=== PATIENT | female | born 1955 | race Hispanic/Latino ===

== ENCOUNTER 2019-08-24 10:31 | Inpatient (IN) | payer BC, OTHER ==
[2019-08-24] VITALS (19 sets, daily range): BP systolic 109–154; BP diastolic 60–106
[~2019-08-24] VITALS: Ht 157.5 cm; Wt 75.7 kg
--- NOTE | 2019-08-24 11:11 | NUR ---
RECEIVED VERBAL ORDERS TO REPEAT EKG AT THIS TIME, DR. WHITESIDE CONSULTING WITH DR. GALLEGO REHABILITATION CASE COORDINATOR.
--- NOTE | 2019-08-24 11:12 | Diagnostic Imaging Report ---
History:Arm numbness, slurred speech Comparison studies:None Technique: Axial images were obtained from the skull base to the vertex. Coronal and sagittal images reconstructed from the axial data. Intravenous contrast: None Dose modulation, iterative reconstruction, and/or weight based adjustment of the mA/kV was utilized to reduce the radiation dose to as low as reasonably achievable. Findings: Scalp/skull: No abnormalities. Extra-axial spaces: Right retrocerebellar arachnoid cyst with mild mass effect over the adjacent parenchyma. No fluid collections. Brain sulci: Age-appropriate. Ventricles: Age-appropriate. No hydrocephalus. Parenchyma: Subcentimeter hypodensity in the right upper putamen without significant volume loss. Chronic lacunar infarct at the left putamen No other abnormal densities. No masses, hemorrhage, acute or chronic cortical vascular insults. Sellar/suprasellar region: No abnormalities. Craniocervical junction: Patent foramen magnum. No Chiari one malformation. Incidental findings: Atherosclerotic calcifications in the carotid siphons and vertebral arteries . Impression: Age indeterminant lacunar infarct at the right upper putamen. Chronic findings: 1. Chronic lacunar infarct at left putamen. The above finding was reported and acknowledged by Dr. Colbert at 11:08 AM 08/24/2019 Signed by: DR Chavez Garcia M.D. on 08/24/2019 11:09 AM
--- NOTE | 2019-08-24 11:19 | NUR ---
CODE STEMI ACTIVATED.
[2019-08-24] MEDS ORDERED: HEPARIN SOD (PORCINE) 1000 UNIT/ML 30ML ONE (11:25)
[2019-08-24] MEDS ORDERED: MIDAZOLAM HCL 2 MG/2 ML VIAL ONE (11:25)
--- NOTE | 2019-08-24 11:25 | NUR ---
PT BELOINGINGS INCLUDING PURSE AND CLOTHING SECURED BY SON AT BEDSIDE.
[2019-08-24] MEDS ORDERED: IOPAMIDOL 370 MG/ML 200 ML INFUS..BTL INJ ONE ×2 (11:26→12:39)
[2019-08-24] MEDS ORDERED: FENTANYL CITRATE/PF 100MCG/2 ML INJ ONE (11:26)
[2019-08-24] MEDS ORDERED: LIDOCAINE HCL 2% LOCAL 20 ML VIAL ONE (11:26)
[2019-08-24] MEDS ORDERED: SODIUM CHLORIDE 0.9% 1000ML 1,000 ML ONE (11:26)
[2019-08-24] MEDS ORDERED: HEPARIN SOD/SOD CHLORIDE 2,000 ML ONE (11:26)
--- NOTE | 2019-08-24 11:29 | Diagnostic Imaging Report ---
Chest, 1 view, 08/24/2019. History: Arm numbness, slurred speech. Comparison: None available. Findings: The cardiomediastinal silhouette and pulmonary vasculature are within normal limits for a portable exam. There is no focal consolidation or pleural effusion. Linear opacities are present at the left lung base. There are no acute osseous or soft tissue abnormalities. Impression: Left basilar atelectasis. Signed by: Dc Carias on 08/24/2019 11:25 AM
--- NOTE | 2019-08-24 11:32 | NUR ---
RECEIVED VERBAL ORDERS FROM DR. WHITESIDE TO GIVE HEPARIN 5,000 UNITS/1 ML TO GIVE BOLUS DOSE; ARRIVED AT BEDSIDE AND RECEVIED ORDERS FROM DR. WHITESIDE AFTER SPEAKING WITH DR. GALLEGO AT BEDSIDE AND WAS ORDERED NOT GO GIVE MEDICATION AT THIS TIME. MEDICATIONS TO BE GIVEN IN DECONTAMINATION WORKER.
[2019-08-24 11:34] LABS: BASOPHILS # (AUTO) 0.1 (0.0-0.1); BASOPHILS % 0.4 % (0.0-1.0); EOSINOPHILS % 0.2 % (0.0-6.0); HEMATOCRIT 37.6 % (34.2-44.1); HEMOGLOBIN 12.6 g/dL (12.0-16.0); LYMPHOCYTES # (AUTO) 2.5 (1.0-3.2); LYMPHOCYTES % 19.7 % (18.0-39.1); MEAN CORPUSCULAR HEMOGLOBIN 29.3 pg (28-32); MEAN CORPUSCULAR HGB CONC 33.5 g/dL (31-35); MEAN CORPUSCULAR VOLUME 87.4 fL (81-99); MONOCYTES # (AUTO) 1.1 (0.2-0.8); MONOCYTES % 8.6 % (4.4-11.3); NEUTROPHILS # (AUTO) 8.8 (2.1-6.9); NEUTROPHILS % 70.6 % (38.7-80.0); PLATELET COUNT 245 x10e3/uL (140-360); RED CELL DISTRIBUTION WIDTH 12.8 % (11.7-14.4)
[2019-08-24] MEDS ORDERED: HEPARIN SOD (PORCINE) 5,000 UNIT/ML VIAL ONE (11:35)
--- NOTE | 2019-08-24 11:35 | NUR ---
VERBAL REPORT GIVEN AT BEDSIDE TO SPEECH WRITER NURSE.
--- NOTE | 2019-08-24 11:38 | NUR ---
PT TAKEN VIA STRETCHER TO RADIOLOGY EQUIPMENT SERVICER AT THIS TIME.
[2019-08-24] MEDS ORDERED: VERAPAMIL HCL 2.5 MG/ML 2 ML VIAL ONE (11:42)
[2019-08-24 11:44] LABS: INR 0.91; PROTHROMBIN TIME 12.7 seconds (11.9-14.5)
[2019-08-24 11:45] LABS: PARTIAL THROMBOPLASTIN TIME 28.1 seconds (23.8-35.5)
[2019-08-24 11:54] LABS: ALANINE AMINOTRANSFERASE 36 IU/L (0-55); ALBUMIN 2.7 g/dL (3.5-5.0); ALBUMIN/GLOBULIN RATIO 0.6 (0.8-2.0); ALKALINE PHOSPHATASE 189 IU/L (40-150); ANION GAP 13.4 mmol/L (8-16); BLOOD UREA NITROGEN 14 mg/dL (7-26); BUN/CREATININE RATIO 16 (6-25); CARBON DIOXIDE 25 mmol/L (22-29); CHLORIDE 98 mmol/L (98-107); CREATINE KINASE 114 IU/L (29-168); CREATININE, SERUM 0.89 mg/dL (0.57-1.11); EST GLOMERULAR FILTRATION RATE > 60 ML/MIN (60-); POTASSIUM 3.4 mmol/L (3.5-5.1); SODIUM 133 mmol/L (136-145)
[2019-08-24] MEDS ORDERED: HEPARIN 25,000 UNIT 5,000 UNIT in DEXTROSE 5% 250ML 250 ML IV ONE (12:00)
--- NOTE | 2019-08-24 12:04 | Diagnostic Imaging Report ---
Chest, 1 view, 08/24/2019. History: Arm numbness. Comparison: 08/24/2019. Findings: The cardiomediastinal silhouette and pulmonary vasculature are within normal limits for a portable exam. There is no focal consolidation or pleural effusion. Linear opacities are present in the left lung base. There are no acute osseous or soft tissue abnormalities. Impression: Left basilar atelectasis. Signed by: Dc Carias on 08/24/2019 12:01 PM
[2019-08-24 12:19] LABS: GLUCOSE 403 mg/dL (74-118)
[2019-08-24] MEDS ORDERED: CLOPIDOGREL BISULFATE 75 MG TAB ONE (12:43)
[2019-08-24] MEDS ORDERED: ASPIRIN 325 MG TAB ONE (12:43)
[2019-08-24] MEDS ORDERED: MORPHINE SULFATE 2 MG/ML SYR 1ML IV PRN (12:45)
[2019-08-24] MEDS: METOPROLOL TARTRATE 25 MG TAB PO SCH (12:45)
[2019-08-24] MEDS ORDERED: SODIUM CHLORIDE FLUSH 10 ML SYR INJ PRN (12:45)
[2019-08-24] MEDS ORDERED: TICAGRELOR 90 MG TABLET ONE (12:46)
[2019-08-24] MEDS ORDERED: EPTIFIBATIDE 75mg 100ML 100 ML IV SCH (13:00)
[2019-08-24] MEDS ORDERED: EPTIFIBATIDE 0 ML ONE (13:11)
[2019-08-24] MEDS ORDERED: EPTIFIBATIDE 75mg 100ML 100 ML ONE (13:11)
[2019-08-24] MEDS ORDERED: ONDANSETRON HCL INJ 2MG/ML 2ML 2 MG/ML VIAL ONE (13:20)
--- NOTE | 2019-08-24 13:33 | NUR ---
5854 Bedside report received from DARREN Lindsey. Alert oriented and appropriate, PERRLA, respirations even and unlabored to room air. Pulses x4 extremities. Pedal pulses PT/DP 4 Doppler and marked. Cap fill brisk < 3 sec. Awaiting icu bed disposition.Was medicated for nausea zofran 4mg. ivp with partial resolution. Skin warm and dry integrity appears Rt ac IV 18g Integrelin drip at 11.2(18hrs) and Ns infusing 100cchr both on pumps. presents healthy w/o s/s of infiltration or complaint. Abdomen soft and supple. pt offered toileting, denies need to urinate or defecate. No personal affects with patient. Family Adolfo cell [phone]. Pt and family verbalizes understanding of POC. Currently w/o complaint of pain or need. Echo ordered. mattie/darren
--- NOTE | 2019-08-24 15:00 | NUR ---
1500 Bed disposition 195 ICU by House vargas Leos RN.ds/rn
--- NOTE | 2019-08-24 15:00 | NUR ---
1500ADIAL Compression removal: Initial Cuff volume 11 cc -2cc Removed No hematoma/bleeding noted with normal neurovascular function. -2cc Removed No hematoma/ bleeding noted with normal neurovascular function. Air removal completed. Stasis achieved sterile 2x2,Tegaderm, Coban dressing No hematoma, bleeding noted with normal neurovascular function. Wrist splint in place. Pt instructed on POC. Ds/Rn
--- NOTE | 2019-08-24 16:30 | NUR ---
1630pm Phoned report to [facility]. Tr band site stable with Coban and arm splint No gross issues pain pallor pressure or dysrhythmia. HR 100. Normal neurovascular function. Interillin drip infusion at 2mcgm/kg min till 7am on 08/25/19 site looks healthy to rt 18g ac.on pump. Light sandwich given with sprite and echo ordered.Pt ahd LAD fix Dr Tejeda and being transfer to ICU #[id number] with RN escort and zoll monitor. mattie/bronson
[2019-08-24] MEDS ORDERED: HYDROCODONE/APAP 5MG-325MG TAB PO PRN (18:15)
[2019-08-24] MEDS ORDERED: MORPHINE SULFATE INJ 4 MG/ML INJ 1ML IV PRN (18:15)
[2019-08-24 19:36] LABS: CREATINE KINASE MB 13.3 ng/mL (0-5.0)
[2019-08-24] MEDS: ATORVASTATIN 40 MG TAB PO SCH (20:21)
[2019-08-24] MEDS: TICAGRELOR 90 MG TABLET PO SCH (20:21)
[2019-08-24] MEDS ORDERED: DEXTROSE 50% SYRINGE 50 ML IV PRN (21:45)
[2019-08-24] MEDS ORDERED: INSULIN LISPRO 100 UNIT/1 ML 3ML VIAL SQ ONE ×2 (21:45→21:53)
[2019-08-25] VITALS (25 sets, daily range): BP systolic 101–131; BP diastolic 41–95
[2019-08-25] MEDS: METOPROLOL TARTRATE 25 MG TAB PO SCH (00:54)
[2019-08-25] MEDS ORDERED: METOPROLOL TARTRATE 25 MG TAB ONE (00:57)
[2019-08-25 05:45] LABS: BASOPHILS % 0.2 % (0.0-1.0); EOSINOPHILS % 0.1 % (0.0-6.0); HEMOGLOBIN 10.7 g/dL (12.0-16.0); LYMPHOCYTES % 8.2 % (18.0-39.1); MEAN CORPUSCULAR HEMOGLOBIN 29.5 pg (28-32); MEAN CORPUSCULAR HGB CONC 33.4 g/dL (31-35); MEAN CORPUSCULAR VOLUME 88.2 fL (81-99); MONOCYTES # (AUTO) 0.8 (0.2-0.8); MONOCYTES % 6.3 % (4.4-11.3); NEUTROPHILS # (AUTO) 10.5 (2.1-6.9); NEUTROPHILS % 84.6 % (38.7-80.0); PLATELET COUNT 228 x10e3/uL (140-360); RED BLOOD COUNT 3.63 x10e6/uL (3.6-5.1); RED CELL DISTRIBUTION WIDTH 12.8 % (11.7-14.4)
[2019-08-25 05:47] LABS: ANION GAP 13.4 mmol/L (8-16); BLOOD UREA NITROGEN 16 mg/dL (7-26); BUN/CREATININE RATIO 22 (6-25); CALCIUM 8.7 mg/dL (8.4-10.2); CARBON DIOXIDE 21 mmol/L (22-29); CHLORIDE 101 mmol/L (98-107); CHOLESTEROL 169 MD/DL (0-199); CREATININE, SERUM 0.72 mg/dL (0.57-1.11); EST GLOMERULAR FILTRATION RATE > 60 ML/MIN (60-); GLUCOSE 294 mg/dL (74-118); HDL CHOLESTEROL 34 MG/DL (40-60); LDL CHOLESTEROL 115 MG/DL (60-130); POTASSIUM 3.4 mmol/L (3.5-5.1); SODIUM 132 mmol/L (136-145); TRIGLYCERIDES 100 MG/DL (0-149)
[2019-08-25 06:16] LABS: CREATINE KINASE MB 65.2 ng/mL (0-5.0)
[2019-08-25] MEDS: INSULIN REGULAR, HUMAN 100 UNIT/1 ML 3ML VIAL SQ SCH ×4 (07:30→21:00)
[2019-08-25] MEDS ORDERED: LACTULOSE SYRUP 20 GM/30 ML UDC PO PRN (08:30)
[2019-08-25] MEDS: TICAGRELOR 90 MG TABLET PO SCH ×2 (09:00→17:00)
[2019-08-25] MEDS: ASPIRIN 81 MG CHEW TAB PO SCH (09:00)
[2019-08-25] MEDS ORDERED: ASPIRIN 325 MG TAB EC PO SCH (09:00)
--- NOTE | 2019-08-25 09:33 | NUR ---
WOUNDCARE CONSULT FOR 64 YO FEMALE NURYS [place] ON CONSERVATIVE PUP SKIN ASSESSMENT REVEALS HEALING SMALL SCAB AREAS TO BILATERAL CERON AREAS HEALING WELL AND MEASURE .5CM X .5CM COVERED WITH ALLEVYN FOAM FOR CONTACT PROTECTION STATES SHE BRUISES AND RECEIVE ABRASIONS EASILY R/T THIN FRAIL SKIN NURSING TO RECONSULT WOUNDCARE FOR ANY FUTURE NEEDS Addendum: 08/25/19 at 0941 by Parker Welch RN Amended: Links added.
[2019-08-25] MEDS ORDERED: HYDROCODONE/APAP 5MG-325MG TAB PO PRN (10:15)
[2019-08-25] MEDS ORDERED: ACETAMINOPHEN 325 MG TAB PO PRN (10:15)
[2019-08-25] MEDS: VALSARTAN/SACUBITRIL 24MG/26MG 1 EA TAB PO SCH ×2 (11:04→17:00)
[2019-08-25] MEDS ORDERED: PERFLUTREN LIPID MICROSPHERES 2 ML VIAL IV NR (11:45)
--- NOTE | 2019-08-25 14:04 | NUR ---
Nutrition Intervention Note RD Recommendation(s) for Physician: -Continue current diet per MD. -Recommend Glucerna BID. Plan of Care: RD following, monitoring for tolerance and adequacy. Glucerna BID. Educational handout provided. Nutrition reason for involvement: RN Consult-DM education. MST-2 RD Assessment 08/25: 64 YOF admitted for CVA with PMH listed below. Pt was seen with family at bedside in the ICU. Pt reported that her appetite has been poor for the past couple of days but prior to that her appetite and weight has been stable. Pt stated she had a little nausea, no BM yet (she is on lactulose) but denied chewing or swallowing issues as well as any food allergies. Recommend Glucerna supplement to provide her with additional calories and protein. Pt was very fatigued and not appropriate to educate at this time, have handout to family members to review and to ask RD and further questions regarding the diet. They had no more questions or concerns. Wound care and speech have been consulted as well.Will continue to monitor. Principal Problems/Diagnoses: CVA PMH: DM GI: Abd: flat; soft Skin: wound on calf Labs: 08/25: Na 132, K 3.4, Co2 21, Gluc 294, POC GM 358 Meds: insulin, valsartan, lactulose, zofran Ht:62 in Wt:148 lbs BMI:27.1 kg/m^2 IBW:100 lbs Malnutrition Evaluation 08/25 The patient does not meet criteria for a specified degree of malnutrition at this time. Will re-evaluate at follow-up as appropriate. Nutrition Prescription (Diet Order):cardiac, ADA Estimated Nutritional Needs: Calories: 5095-2148(18-22kcal/day ) Weight used : CBW: 67.2 kg Protein : 67-100(1-1.5 gram/protein/day) Weight used: CBW: 67.2 kg Diet Adequacy: Not meeting calorie needs, Not meeting protein needs Diet Education Needs Assessment: Diet education indicated, but patient not appropriate for education at this time- educated family Nutrition Care Level: mod Nutrition Diagnosis: inadequate energy intake related to medical condition as evidenced by pt reports of poor intake over the last 2 days and need for ONS. Goal: Patient will meet 75-100% of estimated needs by follow up Progress: N/A Interventions: - carb, cholesterol, mineral (sodium), cholesterol modified diet, Commercial beverage Collaboration with other providers Monitoring/Evaluation: -Total energy intake, Total protein intake, supplement, Level of knowledge Signed: Malinda Perez RD, LD Learner(s): family Barriers: pt was too fatigued at the time and inappropriate to educated. Cultural/Language Modifications: none Readiness: acceptance Method: handout Topics: DM diet Understanding/Compliance: family verbalized understanding, anticipate good compliance
--- NOTE | 2019-08-25 14:48 | NUR ---
ST Note: Order for SLE and BSE received. Discussed case with DARREN Liz. Pt in the restroom. Will return later time permitting. If unable to complete eval today, will complete eval tomorrow 08/26/19.
--- NOTE | 2019-08-25 17:33 | History and Physical ---
CHIEF COMPLAINT: Slurred speech, dizziness. HISTORY OF PRESENT ILLNESS: This is a 64-year-old female with no known past medical history, presents to the emergency room yesterday while she was at work, complaining of slurred speech, and dizziness, and not feeling well. On arrival to the emergency room, she was found to have an abnormal EKG, found to be STEMI, and was taken urgently to the stores laborer. The patient was found to have lesions in the LAD and had status post three stents placed by Cardiology in the LAD, having some underlying slurred speech, but no underlying gait abnormality. During my evaluation, she denies any weakness throughout her body, but seems to have some broken speech during my examination. No diplopia. No blurry vision. No double vision reported. No facial droop seen. The patient was seen and evaluated at bedside in the ICU. She is currently doing much better. She was on Integrilin drip last night, completed her course, and she is doing much better. Plan of care was discussed with the patient with the nurse present. The patient denies any chest pain on arrival nor did she have any chest pain of recent. Her only main complaint was dizziness and slurred speech. REVIEW OF SYSTEMS: Pertinent positives: Dizziness, slurred speech. Pertinent negative: Denies any chest pain, palpitations, nausea, vomiting, diarrhea, dysuria, hematuria, frequency, urgency, abdominal pain, headaches, shortness of breath, cough, congestion, fever, or any other complaints. The rest of 14-point review of systems have been reviewed with the patient and are negative. ALLERGIES: NO KNOWN DRUG ALLERGIES. HOME MEDICATIONS: None. PAST MEDICAL HISTORY: None. PAST SURGICAL HISTORY: Recent left heart catheterization performed 08/24/2019. FAMILY HISTORY: Hypertension and diabetes. SOCIAL HISTORY: No drugs. No alcohol. Does not smoke. Good social support. She has children. 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 PHYSICAL EXAMINATION: VITAL SIGNS: Temperature is 97.9, pulse 87, respiratory rate 15, blood pressure 124/68, pulse ox 98% on room air. GENERAL: Not in acute distress. Alert and oriented x3. Cooperative on examination. HEENT: Head; normocephalic, atraumatic. Eyes; pupils are equal, round, and reactive to light bilaterally. Extraocular movements intact bilaterally. Throat; no evidence of erythema or exudates in the posterior pharynx. Has poor dentition. NECK: Supple. Good range of motion. PULMONARY: Clear to auscultation bilaterally. No wheezing, no rales, no rhonchi, no crackles appreciated. CARDIOVASCULAR: Positive S1 and S2. No murmurs, rubs, or gallops appreciated. ABDOMEN: Soft, nondistended, and nontender to palpation. Bowel sounds present. MUSCULOSKELETAL: Strength seems to be 5/5 throughout. NEUROLOGIC: Does have some slurred speech on examination with word finding, but I did not see any neurological deficits on exam. She was able to move all the extremities well, but no issues. I did not see any facial drooping. SKIN: Intact. Warm to touch. Good cap refill. PSYCHIATRIC: Normal affect and mood. EXTREMITIES: No edema. Good range of motion throughout. LAB FINDINGS: Show white count 12.4, hemoglobin 10.7, hematocrit 32, and platelets of 228. Coagulation, PT 12, INR 0.9, APTT 28. Chemistry, sodium 132, potassium 3.4, chloride 101, bicarb 21, anion gap of 13, BUN is 16, creatinine is 0.72, glucose is 294. Hemoglobin A1c is 13.3, calcium 8.7, total bilirubin is 0.4, AST 25, ALT 36. Troponins went up as high as 63, it was 3.9, 8.3, then 63, albumin was 2.7, LDL was 115, TSH is 8.6. MICROBIOLOGY: None. IMAGING STUDIES: Chest x-ray, left basilar atelectasis. CT of the brain, chronic lacunar infarct at left putamen and also age-indeterminate lacunar infarct at the right upper putamen. IMPRESSION: 1. ST-elevation myocardial infarction, status post left heart catheterization with left anterior descending percutaneous Coronary Intervention. 2. Concerns for acute cerebrovascular accident. 3. Type 2 diabetes. 4. Hyperlipidemia. 5. Medical noncompliance. PLAN: At this time, the patient from a cardiac standpoint was given Integrilin throughout the night, also given aspirin and loading dose of Plavix. She is currently on Brilinta 90 mg p.o. b.i.d., beta blockers, statin as well as aspirin and will need to be on an ETTA inhibitor as well. She is currently doing well from a cardiac standpoint. From a neurological standpoint, she is on anti-platelet therapy statins. There is a carotid ultrasound of the brain that has been ordered including a carotid ultrasound and a 2D echo. We will get PT and OT evaluation and a neurological consult. In relation to her diabetes, this is likely a new onset, A1c is 13.3, we will start her on long-acting Lantus 10 units at bedtime and premeal insulin. Continue with oral statin. Work with PT and OT. She will have SCDs for DVT prophylaxis. She is already on significant amount of anti-platelet therapy. I discussed the plan of care with the patient at bedside including the patient's family and the nursing staff present. They verbalized understanding and agreed with plan of care. The patient is in the ICU. Critical care time more than 40 minutes. MD SUKHJINDER Luna/ELVIRA /[id number]
--- NOTE | 2019-08-25 17:38 | Consultation ---
DATE OF CONSULTATION: 08/25/2019 Cardiology Consultation. REASON FOR CONSULTATION: ST-elevation myocardial infarction. HISTORY OF PRESENT ILLNESS: This is a 64-year-old woman who has a history of borderline diabetes, hypertension, hyperlipidemia, who presented to the emergency department with episodes of dysarthria, inability to form words, and slight confusion. She does report developing shortness of breath approximately 48 hours prior to presentation. She denies any chest pain, chest pressure, or typical anginal symptoms. Upon arrival to our emergency department, she had a head CT, which showed a chronic lacunar infarct at the left putamen with no hemorrhage. Electrocardiogram showed normal sinus rhythm with anterior septal ST elevations with Q-waves noted in the inferior and anteroseptal leads. She was taken to the cardiac catheterization laboratory and her LAD was noted to be occluded with severe disease in her diagonal branch with diffuse distal disease otherwise. She underwent percutaneous coronary intervention of the left anterior descending coronary artery and was admitted to the intensive care unit. REVIEW OF SYSTEMS: A 12-point review of system was conducted, is negative except as stated above in the HPI. PAST MEDICAL HISTORY: As stated above in the HPI. PAST SURGICAL HISTORY: Percutaneous coronary intervention. PAST FAMILY HISTORY: No premature coronary artery disease and cardiac . SOCIAL HISTORY: No illicit drug, alcohol, or tobacco use. ALLERGIES: NO KNOWN DRUG ALLERGIES. MEDICATIONS: See medications reconciliation form. PHYSICAL EXAMINATION: VITAL SIGNS: Temperature is 97.9, heart rate is 83, respirations are 16, blood pressure is 121/63, oxygen saturation 98% on room air. GENERAL: She is well appearing, well built, no apparent distress. Alert orient x3. HEAD: Normocephalic, atraumatic. EYES: Extraocular muscles are intact. Conjunctivae clear. NECK: No JVD. No bruits. CARDIOVASCULAR: She has regular rate and rhythm. No murmurs. LUNGS: Clear to auscultation. ABDOMEN: Soft, nontender, nondistended. EXTREMITIES: No clubbing, cyanosis, edema. VASCULAR: 2+ pulses. SKIN: Warm, dry, and intact. NEUROLOGIC: Dysarthria. No focal deficits otherwise. LABORATORY DATA: Reviewed, hemoglobin 10.7, creatinine 0.72. CK-MB is 65. Troponin I is 63. Creatine kinase is 809, LDL is 115, TSH is 8.6, glucose is 299. Hemoglobin A1c is 13.3. Sodium is 132 and potassium 3.4. Echocardiogram showed left ventricular ejection fraction of 25% to 30%. IMPRESSION: 1. ST-elevation myocardial infarction. 2. Coronary artery disease, status post percutaneous coronary intervention. 3. Acute systolic congestive heart failure. 4. Cerebral vascular accident. 5. Hypertension. 6. Hyperlipidemia. 7. Poorly-controlled diabetes mellitus. RECOMMENDATIONS: We will start optimal medical therapy for her heart failure. I would like to check a 2D echocardiogram with defiantly to rule out LV thrombus. Continue dual antiplatelet therapy with aspirin and Brilinta. She is on high-dose atorvastatin. Diabetes management per primary team. We will check an MRI of the brain and carotid artery Doppler ultrasounds. Jordan Tejeda DO BM/MODL /[id number]
[2019-08-25] MEDS: INSULIN GLARGINE 100 UNITS/ML VIAL SQ SCH (21:25)
[2019-08-25] MEDS: ATORVASTATIN 40 MG TAB PO SCH (21:26)
[2019-08-26] VITALS (24 sets, daily range): BP systolic 72–125; BP diastolic 37–73
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
[2019-08-26 05:21] LABS: BASOPHILS % 0.2 % (0.0-1.0); EOSINOPHILS % 0.1 % (0.0-6.0); HEMATOCRIT 33.1 % (34.2-44.1); LYMPHOCYTES # (AUTO) 1.6 (1.0-3.2); LYMPHOCYTES % 9.5 % (18.0-39.1); MEAN CORPUSCULAR HEMOGLOBIN 29.4 pg (28-32); MEAN CORPUSCULAR HGB CONC 33.2 g/dL (31-35); MEAN CORPUSCULAR VOLUME 88.5 fL (81-99); MONOCYTES # (AUTO) 1.5 (0.2-0.8); MONOCYTES % 8.6 % (4.4-11.3); NEUTROPHILS # (AUTO) 13.8 (2.1-6.9); PLATELET COUNT 220 x10e3/uL (140-360); RED BLOOD COUNT 3.74 x10e6/uL (3.6-5.1); RED CELL DISTRIBUTION WIDTH 13.1 % (11.7-14.4)
[2019-08-26 05:48] LABS: ANION GAP 13.4 mmol/L (8-16); BLOOD UREA NITROGEN 21 mg/dL (7-26); BUN/CREATININE RATIO 30 (6-25); CALCIUM 8.5 mg/dL (8.4-10.2); CARBON DIOXIDE 22 mmol/L (22-29); CHLORIDE 103 mmol/L (98-107); CREATININE, SERUM 0.71 mg/dL (0.57-1.11); EST GLOMERULAR FILTRATION RATE > 60 ML/MIN (60-); GLUCOSE 166 mg/dL (74-118); POTASSIUM 3.4 mmol/L (3.5-5.1); SODIUM 135 mmol/L (136-145)
[2019-08-26] MEDS: INSULIN REGULAR, HUMAN 100 UNIT/1 ML 3ML VIAL SQ SCH ×4 (07:30→20:30)
[2019-08-26] MEDS: FAMOTIDINE 20 MG TAB PO SCH ×2 (07:30→16:30)
[2019-08-26] MEDS ORDERED: LOSARTAN POTASSIUM 25 MG TAB PO SCH (09:00)
[2019-08-26] MEDS: TICAGRELOR 90 MG TABLET PO SCH ×2 (09:03→17:00)
[2019-08-26] MEDS: VALSARTAN/SACUBITRIL 24MG/26MG 1 EA TAB PO SCH ×2 (09:03→17:00)
[2019-08-26] MEDS: ASPIRIN 81 MG CHEW TAB PO SCH (09:03)
--- NOTE | 2019-08-26 11:38 | Diagnostic Imaging Report ---
ADDENDUM #1 Impression: CTA head and neck: No acute abnormality or hemodynamically significant stenosis of the neck or intracranial circulation. 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 Other atherosclerotic changes as described above. Partially visualized right more than left pleural effusions. Signed by: DR Chavez Garcia M.D. on 08/26/2019 12:57 PM ORIGINAL REPORT History: Slurred speech Comparison studies: CT of the head 08/24/2019 Technique: Axial images without IV contrast Axial images were obtained from the thoracic inlet to the vertex with any contrast. 3-D reconstructions and maximum intensity projection reformats were performed. Coronal and sagittal images reconstructed from the axial data. Intravenous contrast: 100 cc of Omnipaque 300. Dose modulation, iterative reconstruction, and/or weight based adjustment of the mA/kV was utilized to reduce the radiation dose to as low as reasonably achievable. Findings: Scalp/skull: No abnormalities. No fractures, blastic or lytic lesions. Extra-axial spaces: Right retrocerebellar arachnoid cyst with mild mass effect over the adjacent parenchyma. No fluid collections. Brain sulci: Appropriate for age. Ventricles: Normal in size and configuration. No hydrocephalus. Parenchyma: Cortical based hypodensity. At the left posterior insula, external capsule and inferior parietal lobule, new since previous examination. Few stable hypodensities of the supratentorial white matter, most commonly seen with mild chronic microvascular ischemic changes. No masses or hemorrhage.. Sellar/suprasellar region: No abnormalities Craniocervical junction: Patent foramen magnum. No Chiari one malformation. CTA of the head and neck: Percentage of stenosis will be based on the NASCET criteria. Aortic arch and major vessels: Patent. No abnormalities. Common carotid arteries: Patent. No abnormalities. Right internal carotid artery: Patent. Calcified and noncalcified atherosclerotic changes at the right carotid bulb results in less than 30% stenosis. Atherosclerotic calcifications of the carotid siphons with less than 20% stenosis. Left internal carotid artery: Patent. Nonstenotic atherosclerotic changes of the left carotid bulb. Atherosclerotic calcifications of the carotid siphons with less than 20% stenosis. Patent bilateral ACAs and MCAs. Right vertebral artery: Patent. No abnormalities. Left vertebral artery: Patent and dominant. No abnormalities. 40-50% stenosis of the mid basilar artery secondary to noncalcified plaque. Patent bilateral account development specialist without hemodynamically significant stenosis. Patent anterior communicating artery, the posterior communicating arteries are not well visualized. Moderate degenerative foraminal narrowing at C3-4 on the right, C4-5 on the left. No high-grade canal stenosis. IMPRESSION: CT head: Acute infarct at the left MCA distribution involving the left posterior insula and inferior parietal lobule (less than 30 cc). No intracranial hemorrhage. No other changes compared to previous CT head. CTA head and neck: No acute abnormality or hemodynamically significant stenosis of the neck or intracranial circulation. 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 Other atherosclerotic changes as described above. The above finding was reported and acknowledged by RN. Jud Ogden at 10:35 AM 08/26/2019. Signed by: DR Chavez Garcia M.D. on 08/26/2019 11:34 AM
[2019-08-26] MEDS: METOPROLOL SUCCINATE 25 MG TAB XL PO SCH (11:51)
[2019-08-26] MEDS ORDERED: SODIUM CHLORIDE 0.9% 100 ML 100 ML ONE (12:12)
[2019-08-26] MEDS ORDERED: IOPAMIDOL 370 MG/ML 200 ML INFUS..BTL INJ ONE (12:12)
[2019-08-26] MEDS: SODIUM CHLORIDE 0.9% 1000ML 1,000 ML IV SCH (14:31)
[2019-08-26] MEDS ORDERED: POTASSIUM CHLORIDE 20 MEQ TAB CR PO NR (15:00)
--- NOTE | 2019-08-26 15:52 | Progress Note ---
DATE: 08/26/2019 Medicine Progress Note SUBJECTIVE: The patient reports feeling much better today. Her speech is improved according to the patient. No overnight events. Neurology and Cardiology evaluated the patient. OBJECTIVE: VITAL SIGNS: Temperature is 98.7, pulse is 101, respiratory rate is 22, blood pressure 131/70, and pulse ox 98% on room air. GENERAL: Not in acute distress. Alert and oriented x3. Cooperative on examination. HEENT: Head; normocephalic, atraumatic. Eyes; pupils are equal, round, and reactive to light bilaterally. Extraocular movements intact bilaterally. Throat; no evidence of erythema or exudates in the posterior pharynx. Has poor dentition. NECK: Supple. Good range of motion. PULMONARY: Clear to auscultation bilaterally. No wheezing, no rales, no rhonchi, no crackles appreciated. CARDIOVASCULAR: Positive S1 and S2. No murmurs, rubs, or gallops appreciated. ABDOMEN: Soft, nondistended, and nontender to palpation. Bowel sounds present. MUSCULOSKELETAL: Deferred to Neurology. NEUROLOGIC: Deferred to Neurology. SKIN: Intact. Warm to touch. Good cap refill. PSYCHIATRIC: Normal affect and mood. EXTREMITIES: No edema. Good range of motion throughout. LABORATORY FINDINGS: Show white count was 17, hemoglobin is 11, hematocrit is 33, platelets of 220. Coagulation reviewed and stable. Chemistries; sodium 135, potassium 3.4, chloride 103, bicarb 22, anion gap of 13, BUN 21, creatinine 0.71, glucose is 166, calcium is 8.5. Total bilirubin is 0.4, AST is 25, and ALT 36. Troponins noted. LDL 115. IMAGING: Carotid Doppler is pending. CTA of the head and neck, no acute abnormality, hemodynamically significant stenosis of the neck or intracranial circulation. 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 Otherwise, significant changes as described above. IMPRESSION: 1. ST-elevation myocardial infarction, status post left heart catheterization with left anterior descending percutaneous coronary intervention. 2. Acute left middle cerebral artery infarct. 3. Type 2 diabetes. 4. Hyperlipidemia. 5. Medical noncompliance. PLAN: At this time, she will continue with anti-platelet therapy, beta-danae, statin, and ETTA inhibitor. She is having some decreased urine output, which she did receive contrast. We will go ahead and put on NS at 50 mL an hour and going to monitor her very closely. Continue with cardioprotective medications and Cardiology is following. From a neurologic standpoint, her imaging studies was consistent with a left MCA infarct. She is on anti-platelet therapy and statins already. Cannot perform MRI of the brain due to recent cardiac stent placement and which she will need to wait at least a minimum of 6 weeks before imaging studies. At this time, continue work with PT and OT, which she is working very well with. She will need outpatient speech therapy. She is tolerating diet well. She can be transferred from the ICU to the Medical floor. I spent more than 35 minutes of critical care time on this case. I reviewed the plan of care with the patient, the patient's , the nurse taking care of the patient at bedside. We will replace potassium as well. MD SUKHJINDER Luna/ELVIRA /[id number]
[2019-08-26] MEDS: ATORVASTATIN 40 MG TAB PO SCH (20:32)
[2019-08-26] MEDS: INSULIN GLARGINE 100 UNITS/ML VIAL SQ SCH (20:33)
--- NOTE | 2019-08-26 22:53 | Progress Note ---
DATE: 08/26/2019 Cardiology Progress Note SUBJECTIVE: No major events overnight. No chest pain. Some mild shortness of breath. OBJECTIVE: VITAL SIGNS: Temperature afebrile, pulse 91, respiratory rate 19, blood pressure 100/51, and saturating 100% on 2 L nasal cannula. GENERAL: Middle-aged female, in no acute distress. CARDIOVASCULAR: Regular rate and rhythm. No murmurs, rubs, or gallops. LUNGS: Clear to auscultation bilaterally. ABDOMEN: Soft, nontender, and nondistended. NEURO AND PSYCH: Alert and oriented to person, place, and time. Normal affect. INPATIENT MEDICATIONS: Reviewed. LABORATORY DATA: Reviewed. TELEMETRY DATA: Reviewed. Shows normal sinus rhythm. ASSESSMENT AND PLAN: 1. Anterior ST-elevation myocardial infarction, status post PCI. 2. Acute systolic congestive heart failure. 3. Cerebrovascular accident. 4. Hypertension. 5. Hyperlipidemia. 6. Poorly controlled diabetes. RECOMMENDATIONS: Continue aspirin and Brilinta. Continue high-intensity statin. The patient started on Entresto. We will start losartan. Continue metoprolol succinate. Echocardiogram yesterday with echo contrast did not show any LV thrombus. We will defer neurological workup to Neurology. Thank you for this consult. We will continue to follow. MD AGNES Childs/ELVIRA /[id number]
[2019-08-27] VITALS (21 sets, daily range): BP systolic 88–123; BP diastolic 48–83
[2019-08-27 06:17] LABS: BASOPHILS % 0.3 % (0.0-1.0); EOSINOPHILS # (AUTO) 0.1 (0.0-0.4); EOSINOPHILS % 0.7 % (0.0-6.0); HEMATOCRIT 33.8 % (34.2-44.1); HEMOGLOBIN 10.9 g/dL (12.0-16.0); LYMPHOCYTES # (AUTO) 1.8 (1.0-3.2); LYMPHOCYTES % 15.2 % (18.0-39.1); MEAN CORPUSCULAR HEMOGLOBIN 29.4 pg (28-32); MEAN CORPUSCULAR HGB CONC 32.2 g/dL (31-35); MEAN CORPUSCULAR VOLUME 91.1 fL (81-99); MONOCYTES # (AUTO) 1.3 (0.2-0.8); NEUTROPHILS # (AUTO) 8.7 (2.1-6.9); NEUTROPHILS % 72.2 % (38.7-80.0); PLATELET COUNT 234 x10e3/uL (140-360); RED BLOOD COUNT 3.71 x10e6/uL (3.6-5.1); RED CELL DISTRIBUTION WIDTH 13.2 % (11.7-14.4)
[2019-08-27 06:35] LABS: ANION GAP 14.1 mmol/L (8-16); BLOOD UREA NITROGEN 23 mg/dL (7-26); BUN/CREATININE RATIO 33 (6-25); CALCIUM 8.2 mg/dL (8.4-10.2); CARBON DIOXIDE 19 mmol/L (22-29); CHLORIDE 102 mmol/L (98-107); EST GLOMERULAR FILTRATION RATE > 60 ML/MIN (60-); GLUCOSE 93 mg/dL (74-118); POTASSIUM 3.1 mmol/L (3.5-5.1); SODIUM 132 mmol/L (136-145)
[2019-08-27] MEDS: INSULIN REGULAR, HUMAN 100 UNIT/1 ML 3ML VIAL SQ SCH ×4 (07:30→20:21)
[2019-08-27] MEDS: FAMOTIDINE 20 MG TAB PO SCH ×2 (07:30→16:30)
[2019-08-27] MEDS ORDERED: ONDANSETRON HCL INJ 2MG/ML 2ML 2 MG/ML VIAL IV PRN (08:15)
[2019-08-27] MEDS: ONDANSETRON HCL INJ 2MG/ML 2ML 2 MG/ML VIAL IV PRN (08:24)
[2019-08-27] MEDS: METOPROLOL SUCCINATE 25 MG TAB XL PO SCH (09:00)
[2019-08-27] MEDS: SENNA-S TABLET PO SCH (09:00)
[2019-08-27] MEDS: VALSARTAN/SACUBITRIL 24MG/26MG 1 EA TAB PO SCH ×2 (09:00→17:00)
[2019-08-27] MEDS: TICAGRELOR 90 MG TABLET PO SCH ×2 (09:00→17:00)
[2019-08-27] MEDS: ASPIRIN 81 MG CHEW TAB PO SCH (09:00)
[2019-08-27] MEDS: SODIUM CHLORIDE 0.9% 1000ML 1,000 ML IV SCH (10:30)
[2019-08-27] MEDS ORDERED: POTASSIUM CHLORIDE 20 MEQ TAB CR PO NR ×2 (12:45→14:15)
--- NOTE | 2019-08-27 15:18 | Progress Note ---
DATE: 08/27/2019 Medicine Progress Note SUBJECTIVE: The patient had some urinary retention earlier this morning, but there was no straight cath performed, then suddenly the patient had an increased amount of urine output on a PureWick. I spoke with the nurse and she says she will do a bladder scan later today and see if she has any residual. She may end up doing a straight cath if she does not void much better, but currently she is doing much better. PHYSICAL EXAMINATION: VITAL SIGNS: Temperature is 98.7, pulse is 92, respiratory rate is 22, pressure 119/60, and pulse ox 100% on 2 L nasal cannula. GENERAL: Not in acute distress. Alert and oriented x3. Cooperative on examination. HEENT: Head; normocephalic, atraumatic. Eyes; pupils are equal, round, and reactive to light bilaterally. Extraocular movements intact bilaterally. Throat; no evidence of erythema or exudates in the posterior pharynx. Has poor dentition. NECK: Supple. Good range of motion. PULMONARY: Clear to auscultation bilaterally. No wheezing, no rales, no rhonchi, no crackles appreciated. CARDIOVASCULAR: Positive S1 and S2. No murmurs, rubs, or gallops appreciated. ABDOMEN: Soft, nondistended, and nontender to palpation. Bowel sounds present. MUSCULOSKELETAL: Strength is 5/5 throughout. No evidence of any muscle deficits on examination. No weakness appreciated. NEUROLOGIC: Has slight slurred speech, but much improved. SKIN: Intact. Warm to touch. Good cap refill. PSYCHIATRIC: Normal affect and mood. EXTREMITIES: No edema. Good range of motion throughout. LABORATORY FINDINGS: Show white count was 12.1, hemoglobin 10.9, hematocrit 34, platelets of 234. Coagulation; PT 12, INR 0.91, PTT 28. Chemistry; sodium 132, potassium 3.1 replaced, chloride 102, bicarb 19, anion gap of 14, BUN is 22, creatinine is 0.7, glucose is 93, calcium is 8.2. IMAGING STUDIES: Nothing new. IMPRESSION: 1. ST-elevation myocardial infarction, status post left heart catheterization with left anterior descending per percutaneous coronary intervention. 2. Acute left middle cerebral artery infarct. 3. Type 2 diabetes. 4. Hyperlipidemia. 5. Medical noncompliance. 6. Urinary retention. PLAN: At this time, continue with her anti-platelet therapy, beta-danae, statin, and ETTA inhibitor, which Cardiology is following very closely. In terms of her urine output, her urine output actually improved today. She did have some urinary retention, but did not get a straight cath and actually produced more urine. Her urine does look more darker, could be from KEKE or just dehydration from decreased oral intake. Continue with IV fluids for now. If she has some urinary retention, from a bladder scan more than 250 mL, we will do a straight cath. We will try to avoid a Turk as possible if we can. From a neurological standpoint, she is on anti-platelet therapy. We will have to wait for 6 weeks to get an MRI of the brain per neurology's note. She is working well with PT and OT. She will need outpatient speech therapy. We will transfer to the medical floor. The patient is still in the ICU and likely be discharged tomorrow if stable. Critical care time 32 minutes. MD SUKHJINDER Luna/ELVIRA /[id number]
--- NOTE | 2019-08-27 19:00 | NUR ---
Received patient from day nurse, patient is stable, patient denies any pain at this time, safety and fall precautions maintained : bed in lowest position and locked, needed items beside bed and call roche placed close to patient, patient has yellow socks, patient is currently stable, will continue to monitor.
--- NOTE | 2019-08-27 19:22 | Progress Note ---
DATE: 08/27/2019 Cardiology Progress Note SUBJECTIVE: No major events overnight. [place] little sleepy and lack of energy all day. Some subjective shortness of breath. OBJECTIVE: VITAL SIGNS: Temperature afebrile, pulse 88, respiratory rate 22, blood pressure 119/60, and saturating 100% on nasal cannula. GENERAL: Middle-aged female, in no acute distress. CARDIOVASCULAR: Regular rate and rhythm. No murmurs, rubs, or gallops. LUNGS: Clear to auscultation bilaterally. ABDOMEN: Soft, nontender, and nondistended. PSYCH: Alert and oriented to person, place, and time. Normal affect. INPATIENT MEDICATIONS: Reviewed. LABORATORY DATA: Reviewed. TELEMETRY DATA: Reviewed, shows normal sinus rhythm. ASSESSMENT AND PLAN: 1. Anterior ST-elevation myocardial infarction, status post PCI. 2. Acute systolic congestive heart failure. 3. Cerebrovascular accident. 4. Hypertension. 5. Hyperlipidemia. 6. Poorly controlled diabetes. RECOMMENDATIONS: Continue aspirin and Brilinta, high-intensity statin. Continue Entresto and metoprolol succinate. No obvious thrombus seen on echocardiogram. We will start low-dose Lasix given worsening shortness of breath, not requiring oxygen. The patient will need a LifeVest on discharge given severely reduced LV systolic function and recent revascularization. Thank you for this consult. We will continue to follow. MD AGNES Childs/ELVIRA /[id number]
[2019-08-27] MEDS ORDERED: FUROSEMIDE INJ 10 MG/ML 2 ML VIAL IV NR (20:00)
[2019-08-27] MEDS: ATORVASTATIN 40 MG TAB PO SCH (20:19)
[2019-08-27] MEDS: INSULIN GLARGINE 100 UNITS/ML VIAL SQ SCH (20:22)
[2019-08-28] VITALS (8 sets, daily range): BP systolic 95–116; BP diastolic 58–78
--- NOTE | 2019-08-28 02:00 | NUR ---
PATIENT RECEIVED LASIX ORDERED
[2019-08-28] MEDS ORDERED: FUROSEMIDE INJ 10 MG/ML 2 ML VIAL ONE (02:51)
[2019-08-28 05:14] LABS: BASOPHILS % 0.3 % (0.0-1.0); EOSINOPHILS # (AUTO) 0.2 (0.0-0.4); EOSINOPHILS % 1.7 % (0.0-6.0); HEMATOCRIT 34.3 % (34.2-44.1); HEMOGLOBIN 11.2 g/dL (12.0-16.0); MEAN CORPUSCULAR HEMOGLOBIN 28.8 pg (28-32); MEAN CORPUSCULAR HGB CONC 32.7 g/dL (31-35); MEAN CORPUSCULAR VOLUME 88.2 fL (81-99); MONOCYTES # (AUTO) 1.3 (0.2-0.8); MONOCYTES % 12.2 % (4.4-11.3); NEUTROPHILS # (AUTO) 7.4 (2.1-6.9); NEUTROPHILS % 67.3 % (38.7-80.0); PLATELET COUNT 270 x10e3/uL (140-360); RED BLOOD COUNT 3.89 x10e6/uL (3.6-5.1)
[2019-08-28 05:34] LABS: ANION GAP 10.6 mmol/L (8-16); BLOOD UREA NITROGEN 23 mg/dL (7-26); BUN/CREATININE RATIO 30 (6-25); CALCIUM 8.1 mg/dL (8.4-10.2); CARBON DIOXIDE 22 mmol/L (22-29); CHLORIDE 101 mmol/L (98-107); CREATININE, SERUM 0.76 mg/dL (0.57-1.11); EST GLOMERULAR FILTRATION RATE > 60 ML/MIN (60-); GLUCOSE 108 mg/dL (74-118); POTASSIUM 3.6 mmol/L (3.5-5.1); SODIUM 130 mmol/L (136-145)
[2019-08-28] MEDS: ONDANSETRON HCL INJ 2MG/ML 2ML 2 MG/ML VIAL IV PRN (07:08)
--- NOTE | 2019-08-28 07:15 | NUR ---
PATIENT ENDORSED TO NEXT SHIFT FOR CONTINUITY OF CARE.
[2019-08-28] MEDS: INSULIN REGULAR, HUMAN 100 UNIT/1 ML 3ML VIAL SQ SCH ×4 (07:30→21:00)
[2019-08-28] MEDS: FAMOTIDINE 20 MG TAB PO SCH ×2 (07:34→17:39)
[2019-08-28] MEDS ORDERED: POTASSIUM CHLORIDE 20MEQ/100ML 200 ML IV ONE (08:45)
[2019-08-28] MEDS: METOPROLOL SUCCINATE 25 MG TAB XL PO SCH (08:47)
[2019-08-28] MEDS: TICAGRELOR 90 MG TABLET PO SCH ×2 (08:47→17:38)
[2019-08-28] MEDS: VALSARTAN/SACUBITRIL 24MG/26MG 1 EA TAB PO SCH ×2 (09:00→17:00)
--- NOTE | 2019-08-28 10:21 | NUR ---
Pt transferred to room 201. Nurse Joseph BANKS received in room. Some nausea this am is now resolved, but a couple am medications were pending being taken. The AM BP of 101 systolic; Dr Bledsoe advised give the metoprolol XL and wait to give the Entresto. No complications noted upon transfer.
--- NOTE | 2019-08-28 11:31 | Progress Note ---
DATE: 08/28/2019 Cardiology Progress Note SUBJECTIVE: The patient denies chest pain or shortness of breath. OBJECTIVE: VITAL SIGNS: Temperature 98.2 degrees, pulse 88, respiratory rate 12, blood pressure 101/62, and oxygen saturation 97% on room air. GENERAL: Awake, alert, in no acute distress. LUNGS: Clear to auscultation bilaterally. No wheezes or crackles. CARDIOVASCULAR: Normal rate. Regular rhythm. No murmur. Normal S1 and S2. ABDOMEN: Soft and nontender. EXTREMITIES: No edema. CARDIAC MEDICATIONS: 1. Metoprolol succinate 25 mg p.o. daily. 2. Atorvastatin 80 mg p.o. at bedtime. Entresto 24/26 mg p.o. b.i.d. 1. Aspirin 81 mg p.o. daily. LABORATORY DATA: WBC 10.97, hemoglobin 11.2, hematocrit 34.3, and platelets 270. Sodium 130, potassium 3.6, chloride 101, CO2 of 22, BUN 23, and creatinine 0.76. TELEMETRY: Normal sinus rhythm. IMPRESSION: 1. Anterior ST-elevation myocardial infarction, status post percutaneous coronary intervention. 2. Acute systolic heart failure. 3. Cerebrovascular accident. 4. Hypertension. 5. Hyperlipidemia. 6. Diabetes mellitus, poorly controlled. RECOMMENDATIONS: Continue dual anti-platelet therapy with aspirin and Brilinta. Continue high-intensity statin. Continue current cardiac medications. Plan for LifeVest on discharge given severely reduced LV systolic function and recent revascularization. Monitor and replete electrolytes. Check BNP today. Thank you for this consult. We will continue to follow. Litzy Singh MD ABS/MODL /[id number]
[2019-08-28] MEDS: SENNA-S TABLET PO SCH (12:08)
[2019-08-28] MEDS: ASPIRIN 81 MG CHEW TAB PO SCH (12:10)
--- NOTE | 2019-08-28 13:21 | Progress Note ---
DATE: 08/28/2019 SUBJECTIVE: The patient is still on oxygen. It was not weaned off by the nursing staff. She is otherwise doing very well. She wants to work with physical therapy today as well. She has been ambulating very good with physical therapy. She does need speech therapy upon discharge. OBJECTIVE: VITAL SIGNS: Temperature is 98, pulse is 93, respiratory rate 16, blood pressure 104/70, pulse ox is 96% on room air. GENERAL: In no acute distress, alert, oriented x3. Cooperative on examination. HEENT: Head is normocephalic and atraumatic. Eyes; pupils are equal, round, and reactive to light bilaterally. Extraocular movements intact bilaterally. Neck was supple with good range of motion. Throat; no evidence of erythema or exudates in the posterior pharynx, has poor dentition. PULMONARY: Clear to auscultation bilaterally. No wheezing, rales, or rhonchi. No crackles appreciated. Cardiovascular: Positive S1, S2. No murmurs, rubs, or gallops appreciated. ABDOMEN: Soft, nondistended, and nontender to palpation. Bowel sounds present. MUSCULOSKELETAL: Strength is 5/5 throughout. No evidence of any muscle deficits on examination. No weakness appreciated. NEUROLOGIC: Cranial nerve II through XII grossly intact. No evidence of any neurological deficits on exam. SKIN: Intact. Warm to touch. Good cap refill. PSYCHIATRIC: Normal affect and mood. EXTREMITIES: No edema. Good range of motion throughout. LABORATORY FINDINGS: White count 10.9, hemoglobin 11.2, hematocrit 34, platelets are 270. Chemistries reviewed and stable. Sodium was 130, a bit low, but we will monitor that closely. Electrolytes are stable. MICROBIOLOGY: None. IMAGING STUDIES: None new today. IMPRESSION: 1. ST-elevation myocardial infarction, status post left heart catheterization with left anterior descending percutaneous coronary intervention, now needing a LifeVest. 2. Acute left middle cerebral artery infarct. 3. Type 2 diabetes. 4. Hyperlipidemia. 5. Medical noncompliance. 6. Urinary retention. PLAN: At this time, continue with anti-platelet therapy, beta-danae, statin, ETTA inhibitor, we will order LifeVest as Cardiology recommended in yesterday's note. She is on a PureWick and so we will just continue to monitor that with frequent bladder scans. As for her underlying CVA, she is going to be on anti-platelet therapy, statins. She will just need outpatient speech therapy. She is actually ambulating very well with physical therapy. She will continue with long-acting insulin and sliding scale. She will need an MRI in 6 weeks to evaluate her neurological status from the CVA per Neurology's note. Continue with PT, OT, speech therapy. I had given the family the scripts to go purchase today. She will stay here another day until she gets the LifeVest. Educate her in terms of her diabetes and how she can inject herself and this will give the time for the to go purchase the scripts and see if anything is expensive. If so, I can change them to a generic form if possible. I explained the plan of care with the nursing staff. The patient and patient's at bedside and they all verbalized understanding. MD SUKHJINDER Luna/ELVIRA /[id number]
[2019-08-28] MEDS ORDERED: POTASSIUM CHLORIDE 20 MEQ TAB CR PO ONE (13:50)
--- NOTE | 2019-08-28 15:08 | NUR ---
Nutrition Intervention Note RD Recommendation(s) for Physician (08/28): -Continue current diet per MD. -Recommend Glucerna BID. Plan of Care: RD following, monitoring for tolerance and adequacy. Glucerna BID. Education provided. Nutrition reason for involvement: RN Consult-DM education. RD Assessment 08/28: RN consult: Pt was seen d/t RNs concerns for Diet education regarding DM. Per nurse, the pt is a new Diabetic. RD educated family members during prior visit while pt slept in the ICU. Pt is now on the floors and RD was able to educate pt on DM diet, provided educational handout again as well. Educated the pt on reading the food label, carb portions, carb foods, foods recommended and not recommended, food logging and logging sugars as well as meal planning. Encouraged the pt to attend outpatient counseling as well. Plan is for d/c tmrw. Per IM note- pt will need speech therapy upon discharge as well. No meal percentages were recorded in meal assessment. Will continue to monitor. 08/25: 64 YOF admitted for CVA with PMH listed below. Pt was seen with family at bedside in the ICU. Pt reported that her appetite has been poor for the past couple of days but prior to that her appetite and weight has been stable. Pt stated she had a little nausea, no BM yet (she is on lactulose) but denied chewing or swallowing issues as well as any food allergies. Recommend Glucerna supplement to provide her with additional calories and protein. Pt was very fatigued and not appropriate to educate at this time, have handout to family members to review and to ask RD and further questions regarding the diet. They had no more questions or concerns. Wound care and speech have been consulted as well.Will continue to monitor. Principal Problems/Diagnoses: CVA PMH: DM GI: Abd: round, LBM: 08/28 Skin: wound on calf Labs: 08/28: POC GM: 182, Ca 8.1 08/25: Na 132, K 3.4, Co2 21, Gluc 294, POC GM 358 Meds: insulin, valsartan, lactulose, zofran, potassium chloride given, senna, pepcid Ht: 62 in Wt: 150 lbs BMI: 27.5 kg/m^2 IBW: 100 lbs Malnutrition Evaluation 08/25 The patient does not meet criteria for a specified degree of malnutrition at this time. Will re-evaluate at follow-up as appropriate. Nutrition Prescription (Diet Order):cardiac, ADA Estimated Nutritional Needs: Calories: 4258-1604 (18-22kcal/day ) Weight used : CBW: 67.2 kg Protein : 67-100 (1-1.5 gram/protein/day) Weight used: CBW: 67.2 kg Diet Adequacy: meeting calorie needs meeting protein needs Diet Education Needs Assessment: Diet education indicated, pt accepted education. Nutrition Care Level: mod Nutrition Diagnosis: inadequate energy intake related to medical condition as evidenced by pt reports of poor intake over the last 2 days and need for ONS. Goal: Patient will meet 75-100% of estimated needs by follow up Progress: progressing Interventions: - carb, cholesterol, mineral (sodium), cholesterol modified diet, Commercial beverage Collaboration with other providers, education Monitoring/Evaluation: -Total energy intake, Total protein intake, supplement, Level of knowledge Signed: Malinda Perez RD, LD Learner(s): pt Barriers: none Cultural/Language Modifications: none Readiness: acceptance Method: handout, discussion, teach back Topics: DM diet, food label, carb portions, carb foods, meal planning, foods recommended and foods not recommended, importance of checking sugars and mediation management Understanding/Compliance: family verbalized understanding, anticipate good complianc Learner(s): family Barriers: pt was too fatigued at the time and inappropriate to educated. Cultural/Language Modifications: none Readiness: acceptance Method: handout Topics: DM diet Understanding/Compliance: family verbalized understanding, anticipate good compliance Addendum: 08/28/19 at 1718 by Malinda Perez DIET It BS remain high, please d/c Glucerna supplement.
--- NOTE | 2019-08-28 17:48 | NUR ---
PATIENT YARELY UP 10 UNITS OF REGULAR INSULIN AND SELF ADMINISTERED IN HER RIGHT ABDOMEN AFTER CLEANING THE INSULIN BOTTLE AND INJECTION SITE WITH ALCOHOL PAD FOR DIABETIC TEACHING.
--- NOTE | 2019-08-28 19:05 | NUR ---
Pt visited in room during nursing rounds. Patient alert and oriented x3. No distress or discomfort noted. Pt ambulated with 1 person assist and walker. Daughter at bedside. Pt stated she plans to take a bath later. Pt being fitted for life vest by company labor service representative. Call roche within reach. Will monitor closely.
[2019-08-28] MEDS: INSULIN GLARGINE 100 UNITS/ML VIAL SQ SCH (21:00)
[2019-08-28] MEDS: ATORVASTATIN 40 MG TAB PO SCH (21:50)
[2019-08-29] VITALS (10 sets, daily range): BP systolic 101–123; BP diastolic 58–78
[2019-08-29 05:08] LABS: BASOPHILS % 0.2 % (0.0-1.0); EOSINOPHILS # (AUTO) 0.1 (0.0-0.4); EOSINOPHILS % 0.8 % (0.0-6.0); HEMATOCRIT 33.6 % (34.2-44.1); HEMOGLOBIN 11.4 g/dL (12.0-16.0); LYMPHOCYTES % 11.4 % (18.0-39.1); MEAN CORPUSCULAR HEMOGLOBIN 29.5 pg (28-32); MEAN CORPUSCULAR HGB CONC 33.9 g/dL (31-35); MEAN CORPUSCULAR VOLUME 86.8 fL (81-99); MONOCYTES # (AUTO) 1.2 (0.2-0.8); MONOCYTES % 13.1 % (4.4-11.3); NEUTROPHILS # (AUTO) 6.5 (2.1-6.9); PLATELET COUNT 295 x10e3/uL (140-360); RED BLOOD COUNT 3.87 x10e6/uL (3.6-5.1); RED CELL DISTRIBUTION WIDTH 12.8 % (11.7-14.4)
[2019-08-29 05:26] LABS: ANION GAP 12.1 mmol/L (8-16); BLOOD UREA NITROGEN 23 mg/dL (7-26); BUN/CREATININE RATIO 29 (6-25); CALCIUM 8.2 mg/dL (8.4-10.2); CARBON DIOXIDE 20 mmol/L (22-29); CHLORIDE 104 mmol/L (98-107); EST GLOMERULAR FILTRATION RATE > 60 ML/MIN (60-); GLUCOSE 83 mg/dL (74-118); POTASSIUM 4.1 mmol/L (3.5-5.1); SODIUM 132 mmol/L (136-145)
[2019-08-29] MEDS: FAMOTIDINE 20 MG TAB PO SCH ×2 (06:36→18:10)
[2019-08-29] MEDS: INSULIN REGULAR, HUMAN 100 UNIT/1 ML 3ML VIAL SQ SCH ×4 (07:30→21:00)
--- NOTE | 2019-08-29 10:05 | NUR ---
ASSESSMENT: Follow up visit Pt thankful for improvement. Pt's and son at bedside. Intervention: Provided empathic listening. Facilitated illness update. Reminded pt & family of availability of blanket cutting machine operator services. Outcome: Will continue to follow. SUSHMA URENA Learning Facilitator Spiritual Care Department O: [phone] Pager: [phone] ([phone] number calling from)
[2019-08-29] MEDS: VALSARTAN/SACUBITRIL 24MG/26MG 1 EA TAB PO SCH (10:27)
[2019-08-29] MEDS: FUROSEMIDE INJ 10 MG/ML 4 ML VIAL IV SCH ×2 (10:27→18:10)
[2019-08-29] MEDS: TICAGRELOR 90 MG TABLET PO SCH ×2 (10:35→18:10)
[2019-08-29] MEDS: ASPIRIN 81 MG CHEW TAB PO SCH (10:39)
[2019-08-29] MEDS: METOPROLOL SUCCINATE 25 MG TAB XL PO SCH (10:41)
[2019-08-29] MEDS: SENNA-S TABLET PO SCH (10:41)
--- NOTE | 2019-08-29 11:18 | NUR ---
LALY spoke with Jigna, speech therapist, who worked with pt yesterday regarding recommendations for discharge. She states that pt did really well yesterday and she does not think pt needs outpatient therapy. Dr. Keita was upated.
[2019-08-29] MEDS ORDERED: ONDANSETRON HCL 4 MG ORAL DISINTEGRATING TAB PO PRN (11:45)
--- NOTE | 2019-08-29 12:45 | NUR ---
PATIENT COMPLAINED OF DIZZINESS, BLOOD PRESSURE= 93/62 mm/Hg, PULSE= 87 BPM, PATIENT DID RECEIVE ENTRESTO THIS MORNING.
--- NOTE | 2019-08-29 20:03 | NUR ---
Patient received lying in bed. AAO x 3. Daughter at bedside. Patient had no complaints of pain. Respirations even and non-labored . Telemetry records patient's rhythm as SR with a HR of 90. Fall precautions implemented. Patient instructed to call for assistance when needed. Call light within reach.
[2019-08-29] MEDS: INSULIN GLARGINE 100 UNITS/ML VIAL SQ SCH (21:00)
[2019-08-29] MEDS: ATORVASTATIN 40 MG TAB PO SCH (21:31)
[2019-08-30] VITALS (9 sets, daily range): BP systolic 98–124; BP diastolic 56–82
--- NOTE | 2019-08-30 01:53 | Progress Note ---
DATE: 08/29/2019 Cardiology Progress Note. SUBJECTIVE: The patient denies chest pain or shortness of breath. However, she reports she is dizzy when she stands. OBJECTIVE: VITAL SIGNS: Temperature 97.9 degrees, pulse 92, respiratory rate 18, blood pressure 118/78, and oxygen saturation 97% on room air. GENERAL: Awake, alert, in no acute distress. LUNGS: Clear to auscultation bilaterally. No wheezes, no crackles. CARDIOVASCULAR: Normal rate, regular rhythm. No murmur. Normal S1, S2. ABDOMEN: Soft and nontender. EXTREMITIES: No edema. CARDIAC MEDICATIONS: Atorvastatin 80 mg p.o. at bedtime, aspirin 81 mg p.o. daily, metoprolol tartrate 25 mg p.o. daily. LABORATORY DATA: WBC 8.76, hemoglobin 11.4, hematocrit 32.6, and platelets 295. Sodium 132, potassium 4.1, chloride 104, CO2 of 20, BUN 23, and creatinine 0.8. TELEMETRY: Normal sinus rhythm. IMPRESSION: 1. Acute ST-elevation myocardial infarction status post percutaneous coronary intervention. 2. Acute systolic heart failure. 3. Cerebrovascular accident. 4. Hypertension. 5. Hyperlipidemia. 6. Diabetes mellitus, poorly controlled. RECOMMENDATIONS: Continue dual antiplatelet with aspirin and Brilinta. Continue high-intensity statin. The patient became hypotensive with complaints of nausea later this afternoon. However, after she received her Entresto, she did have orthostatic vitals done, which were unremarkable. Attempt to keep the patient on Entresto and metoprolol if at all possible given her acute systolic heart failure. The patient has been given a LifeVest for discharge given her very recent outpatient revascularization. Monitor and replete electrolytes. Continue IV diuretics as BNP remains elevated. Thank you for this consult. We will continue to follow. Litzy Singh MD ABS/MODL /[id number] MTDD
--- NOTE | 2019-08-30 07:00 | NUR ---
RECEIVED AM REPORT FROM RN AND MORNING ROUNDS DONE. PT IS ALERT SITTING UP IN BED, NO S/S OF DISTRESS. CALL LIGHT WITHIN REACH AND INSTRUCTED PT TO CALL RN FOR HELP. IS AT THE BEDSIDE.
--- NOTE | 2019-08-30 07:13 | NUR ---
Gave report to oncoming nurse. Patient in bed. at the bedside. Call light within reach.
[2019-08-30] MEDS: INSULIN REGULAR, HUMAN 100 UNIT/1 ML 3ML VIAL SQ SCH ×4 (07:30→20:28)
--- NOTE | 2019-08-30 07:59 | Discharge Summary ---
FINAL DISCHARGE DIAGNOSES: 1. ST elevation myocardial infarction, status post left heart catheterization with left anterior descending artery percutaneous coronary intervention, stent placement with a LifeVest to be discharged with. 2. Acute left middle cerebral artery infarct. 3. Type 2 diabetes. 4. Hyperlipidemia. 5. Medical noncompliance. 6. Urinary retention-resolved. CONSULTANTS: We had Neurology and Cardiology. PHYSICAL EXAMINATION: VITAL SIGNS: Temperature is 97.9, pulse 92, respiratory rate is 18, blood pressure is 118/78, and pulse ox 97% on room air. LABORATORY FINDINGS: Show white count 8.7, hemoglobin 11.4, hematocrit 33.6, platelets of 295. Coagulation reviewed and stable. Chemistry; sodium 132, potassium 4.1, chloride 104, bicarb 20, anion gap of 12, BUN is 23, creatinine 0.8, glucose is 83, calcium is 8.2. Hemoglobin A1c was 13.3. Total bilirubin is 0.4, AST 25, ALT 36. TSH is 8.6. LDL was 115. Triglycerides was 100. Troponins were elevated. BNP 905. MICROBIOLOGY: None. IMAGING STUDIES: Chest x-ray, left basilar atelectasis. Repeat chest x-ray shows left basilar atelectasis. CT of brain, chronic lacunar infarct at the left putamen. Age-indeterminate lacunar infarct at the right upper putamen. Carotid Doppler, there is no hemodynamic significant stenosis in bilateral internal carotid system. CT of the head and neck, no acute abnormality, hemodynamic significance stenosis of the neck or intracranial circulation. 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 Other arthrosclerotic changes as described above. CT of head showed acute infarct at the left MCA distribution involving the left posterior insula and inferior parietal lobe. No intracranial hemorrhage. No other changes compared to previous CT. HOSPITAL COURSE: This is a 64-year-old female, who came into the emergency room initially with complaints of lightheadedness, dizziness, and not feeling well. Had an EKG that showed STEMI requiring emergent left heart catheterization performed by Cardiology. The patient underwent left heart catheterization with status post LAD PCI, stent placement. The patient was eventually transferred to ICU, started on Integrilin drip as well as other anti-platelet therapy. While in the ICU, the patient did extremely well with no issues. She denies any more chest pain after the procedure. Due to the reduced LV function, Cardiology recommended a LifeVest, which was provided for them prior to being discharged. Also, the patient was complaining of underlying slurred speech on admission and apparently after further imaging, the patient was found to have a left MCA infarct. A CT of brain shows acute infarct at the left MCA distribution involving the left posterior insula and inferior frontal lobe. The patient was on anti-platelet therapy, statins, and Neurology was consulted. She worked with PT and OT. She did tremendously well and did not require any kind of PT, OT, or even half-way facility as an outpatient. She did have slurred speech, but improved tremendously while here in the hospital and was cleared by Speech Therapy. She does not need outpatient speech therapy as per recommendations by the Speech Therapy Services. From a Cardiology standpoint, the patient has been cleared. We will continue with cardioprotective medications as well as anti-platelet therapy and the LifeVest was provided to them. As per Neurology, no further workup needed. Anti-platelet therapy as well as statins and the patient will need an MRI in 6 weeks post status post heart catheterization of the brain to further evaluate significance of her acute CVA. The patient was cleared for discharge by both consultants. On the day of discharge, vital signs were stable, labs reviewed and stable. The patient was seen, evaluated, and examined thoroughly on the day of discharge. No other complaints. The patient verbalized understanding and agrees to plan of care to followup appointment as an outpatient with the primary care physician in 1 week and Neurology and Cardiology in 2 weeks' time. Also, the patient was found to have elevated hemoglobin A1c and LDL. She was started on insulin long-acting as well as premeal and started on a statin as well. She had diabetic education while here in the hospital stay. MEDICATIONS: See med reconciliation form. DISPOSITION: To home. CONDITION: Stable. DIET: Heart healthy. In the event of any worsening symptoms, the patient was advised to come back to the ED for further evaluation. Discharge summary took greater than 35 minutes. MD SUKHJINDER Luna/ELVIRA /[id number]
[2019-08-30] MEDS: FAMOTIDINE 20 MG TAB PO SCH ×2 (08:38→17:00)
[2019-08-30] MEDS: FUROSEMIDE INJ 10 MG/ML 4 ML VIAL IV SCH ×2 (08:38→15:30)
[2019-08-30] MEDS: ASPIRIN 81 MG CHEW TAB PO SCH (08:38)
[2019-08-30] MEDS: METOPROLOL SUCCINATE 25 MG TAB XL PO SCH (08:38)
[2019-08-30] MEDS: SENNA-S TABLET PO SCH (08:38)
[2019-08-30] MEDS: TICAGRELOR 90 MG TABLET PO SCH ×2 (08:38→17:00)
[2019-08-30] MEDS ORDERED: FUROSEMIDE INJ 10 MG/ML 4 ML VIAL IV SCH (12:00)
--- NOTE | 2019-08-30 13:40 | Diagnostic Imaging Report ---
EXAMINATION: CHEST SINGLE (PORTABLE) INDICATION: Shortness of breath COMPARISON: Chest radiograph of 08/24/2019 FINDINGS: LINES/TUBES:EKG leads overlie the chest. LUNGS:The lungs are moderately inflated. There is perihilar fullness and indistinctness of the pulmonary vasculature. There are bibasilar patchy opacities that silhouette both hemidiaphragms. PLEURA:Likely trace bilateral pleural effusions. MEDIASTINUM:The cardiomediastinal silhouette appears unchanged in size and shape. BONES/SOFT TISSUES:No acute osseous injury. ABDOMEN:No free air under the diaphragm. IMPRESSION: Mild pulmonary edema. Likely trace bilateral pleural effusions. Patchy bibasilar opacities more likely represent subsegmental atelectasis than superimposed aspiration or pneumonia. Signed by: Chau Dorman MD on 08/30/2019 1:37 PM
--- NOTE | 2019-08-30 14:43 | Progress Note ---
DATE: 08/30/2019 Medicine Progress Note SUBJECTIVE: The patient reports she was short of breath today on examination. She went back on oxygen about 1 L. We will get a chest x-ray and give her some IV Lasix. Yesterday, she was in the process of being discharged, but her blood pressure was low, and so we had to discontinue the Entresto. PHYSICAL EXAMINATION: VITAL SIGNS: Temperature is 97.4, pulse 90, respiratory rate is 17, blood pressure was 120/76, pulse ox 96% on room air. GENERAL: Not in acute distress. Alert and oriented x3. Cooperative on examination. HEENT: Head; normocephalic, atraumatic. Eyes; pupils are equal, round, and reactive to light bilaterally. Extraocular movements intact bilaterally. Throat; no evidence of erythema or exudates in the posterior pharynx. Has poor dentition. NECK: Supple. Good range of motion. PULMONARY: Clear to auscultation bilaterally. No wheezing, no rales, no rhonchi, no crackles appreciated. CARDIOVASCULAR: Positive S1 and S2. No murmurs, rubs, or gallops appreciated. ABDOMEN: Soft, nondistended, and nontender to palpation. Bowel sounds present. MUSCULOSKELETAL: Strength is 5/5 throughout. No evidence of any muscle deficits on examination. No weakness appreciated. NEUROLOGIC: Cranial nerve II through XII grossly intact. No evidence of any neurological deficits on exam. SKIN: Intact. Warm to touch. Good cap refill. PSYCHIATRIC: Normal affect and mood. EXTREMITIES: No edema. Good range of motion throughout. LABORATORY FINDINGS: Show white count 8.7, hemoglobin 9.4, hematocrit is 33.6, platelets of 295. Chemistries reviewed and stable. IMPRESSION: 1. ST-elevation myocardial infarction, status post left heart catheterization with left anterior descending percutaneous coronary intervention, now with a LifeVest. 2. Acute left middle cerebral artery infarct. 3. Type 2 diabetes. 4. Hyperlipidemia. 5. Hypotension secondary to Entresto discontinued. 6. Urinary retention, resolved. 7. Medical noncompliance. 8. Shortness of breath. PLAN: At this time, continue with her cardioprotective medications, anti-platelet therapy, beta-danae, statin, ETTA inhibitor, and LifeVest is at bedside. She is peeing well now. There is no evidence of any urinary retention. As for her CVA, she is on antiplatelet therapy as well as statin. Work with PT, OT, speech therapy. She does have shortness of breath today. I will go ahead and get a chest x-ray, Lasix. Get a.m. labs as well. Once she improves by tomorrow, hopefully she is breathing better, she can be discharged tomorrow with oral diuretics. MD SUKHJINDER Luna/ELVIRA /[id number]
--- NOTE | 2019-08-30 15:32 | NUR ---
called Dr. Keita and informed him about CXR results. asked to make sure that there was a BMP lab scheduled for tomorrow 08/31/19 in AM, there were already orders put in. possible discharge tomorrow
--- NOTE | 2019-08-30 19:54 | Progress Note ---
DATE: 08/30/2019 Cardiology Progress Note SUBJECTIVE: The patient denies chest pain or shortness of breath. She continues to report dizziness with standing. OBJECTIVE: VITAL SIGNS: Temperature 97.3 degrees, pulse 82, respiratory rate 18, blood pressure 123/76, and oxygen saturation 98% on room air. GENERAL: Awake, alert, in no acute distress. LUNGS: Clear to auscultation bilaterally. No wheeze or crackles. CARDIOVASCULAR: Normal rate and regular rhythm. No murmur. Normal S1, S2. ABDOMEN: Soft, nontender. EXTREMITIES: No edema. CARDIAC MEDICATIONS: Furosemide 40 mg IV b.i.d., metoprolol succinate 25 mg p.o. daily, aspirin 81 mg p.o. daily, atorvastatin 80 mg p.o. at bedtime. LABORATORY DATA: None today. IMAGING: Chest x-ray; mild pulmonary edema, likely trace bilateral pleural effusions, patchy bibasilar opacities more likely represent subsegmental atelectasis than superimposed aspiration or pneumonia. TELEMETRY: Normal sinus rhythm. IMPRESSION: 1. Acute ST-elevation myocardial, status post PCI. 2. Acute systolic heart failure. 3. Cerebrovascular accident. 4. Hypertension. 5. Hyperlipidemia. 6. Diabetes mellitus, poorly controlled. RECOMMENDATIONS: Continue dual antiplatelet therapy with aspirin and Brilinta. Continue high-intensity statin, Entresto was discontinued due to hypotension. Continue metoprolol succinate. Continue IV diuretics. Check BNP. LifeVest has been provided for the patient on discharge given her acute systolic heart failure and recent ST-elevation myocardial infarction. Thank you for this consult. We will continue to follow. Litzy Singh MD ABS/MODL /[id number]
[2019-08-30] MEDS: ATORVASTATIN 40 MG TAB PO SCH (20:37)
[2019-08-30] MEDS: INSULIN GLARGINE 100 UNITS/ML VIAL SQ SCH (21:30)
[2019-08-31 04:45] VITALS: BP 121/77
[2019-08-31 05:54] LABS: BASOPHILS % 0.3 % (0.0-1.0); EOSINOPHILS # (AUTO) 0.1 (0.0-0.4); EOSINOPHILS % 1.4 % (0.0-6.0); HEMATOCRIT 33.8 % (34.2-44.1); HEMOGLOBIN 11.1 g/dL (12.0-16.0); LYMPHOCYTES # (AUTO) 1.8 (1.0-3.2); LYMPHOCYTES % 21.3 % (18.0-39.1); MEAN CORPUSCULAR HGB CONC 32.8 g/dL (31-35); MEAN CORPUSCULAR VOLUME 88.3 fL (81-99); MONOCYTES # (AUTO) 1.2 (0.2-0.8); MONOCYTES % 13.3 % (4.4-11.3); NEUTROPHILS # (AUTO) 5.5 (2.1-6.9); NEUTROPHILS % 63.4 % (38.7-80.0); PLATELET COUNT 314 x10e3/uL (140-360); RED BLOOD COUNT 3.83 x10e6/uL (3.6-5.1); RED CELL DISTRIBUTION WIDTH 12.9 % (11.7-14.4)
[2019-08-31 06:09] LABS: ANION GAP 10.7 mmol/L (8-16); BLOOD UREA NITROGEN 19 mg/dL (7-26); BUN/CREATININE RATIO 26 (6-25); CARBON DIOXIDE 23 mmol/L (22-29); CHLORIDE 100 mmol/L (98-107); CREATININE, SERUM 0.73 mg/dL (0.57-1.11); EST GLOMERULAR FILTRATION RATE > 60 ML/MIN (60-); GLUCOSE 81 mg/dL (74-118); POTASSIUM 3.7 mmol/L (3.5-5.1); SODIUM 130 mmol/L (136-145)
--- NOTE | 2019-08-31 07:00 | NUR ---
RECEIVED AM REPORT FROM NURSE AND MORNING ROUNDS DONE. PT IS ALERT AND RESTING IN BED, NO S/S OF DISTRESS. CALL LIGHT WITHIN REACH AND INSTRUCTED PT TO CALL NURSE FOR HELP. DAUGHTER IS AT THE BEDSIDE
[2019-08-31] MEDS: INSULIN REGULAR, HUMAN 100 UNIT/1 ML 3ML VIAL SQ SCH ×2 (07:30→11:40)
[2019-08-31 08:00] VITALS: BP 135/79
[2019-08-31] MEDS: ASPIRIN 81 MG CHEW TAB PO SCH (08:59)
[2019-08-31] MEDS: SENNA-S TABLET PO SCH (08:59)
[2019-08-31] MEDS: TICAGRELOR 90 MG TABLET PO SCH (08:59)
[2019-08-31] MEDS: FAMOTIDINE 20 MG TAB PO SCH (08:59)
[2019-08-31] MEDS: FUROSEMIDE INJ 10 MG/ML 4 ML VIAL IV SCH (08:59)
[2019-08-31] MEDS: METOPROLOL SUCCINATE 25 MG TAB XL PO SCH (08:59)
[2019-08-31 09:20] VITALS: BP 135/79
[2019-08-31 11:57] VITALS: BP 121/67
--- NOTE | 2019-08-31 12:20 | NUR ---
ASSESSMENT: Spiritual concern Pt anticipating discharge to home. Pt's sister at bedside. Intervention: Provided empathic pastoral listening. Outcome: Pt & sister expressed appreciation for visit. SUSHMA URENA Educational Psychology Professor Spiritual Care Department O: [phone] Pager: [phone] ([phone] number calling from)
--- NOTE | 2019-08-31 14:30 | Progress Note ---
DATE: 08/31/2019 Cardiology Progress Note SUBJECTIVE: The patient denies chest pain. She reports shortness of breath is better. OBJECTIVE: VITAL SIGNS: Temperature 96.2 degrees, pulse 83, respiratory rate 12, blood pressure 129/67, and oxygen saturation 98% on 2 liters nasal cannula. GENERAL: Awake, alert, in no acute distress. LUNGS: Clear to auscultation bilaterally. No wheezes or crackles. CARDIOVASCULAR: Normal rate. Regular rhythm. No murmur. Normal S1 and S2. ABDOMEN: Soft and nontender. EXTREMITIES: No edema. CARDIAC MEDICATIONS: 1. Furosemide 40 mg IV b.i.d. 2. Metoprolol succinate 25 mg p.o. daily. 3. Aspirin 81 mg p.o. daily. 4. Atorvastatin 80 mg p.o. at bedtime. 5. Brilinta 90 mg p.o. b.i.d. TELEMETRY: Normal sinus rhythm. IMPRESSION: 1. Acute ST-elevation myocardial infarction, status post percutaneous coronary intervention. 2. Acute systolic heart failure. 3. Cerebrovascular accident. 4. Hypertension. 5. Hyperlipidemia. 6. Diabetes mellitus, poorly controlled. RECOMMENDATIONS: Continue dual antiplatelet therapy with aspirin and Brilinta. Continue high density statin. Entresto was held due to hypotension, we will attempt to resume as an outpatient. Continue metoprolol succinate. Continue diuretics. Low-sodium diet and fluid restriction were discussed with the patient. LifeVest has been provided for the patient on discharge given her acute systolic heart failure and recent ST-elevation myocardial infarction. Thank you for this consult. We will continue to follow. Litzy Singh MD ABS/MODL /[id number]
[2019-08-31 16:00] VITALS: BP 110/68
--- NOTE | 2019-08-31 17:51 | Discharge Summary ---
FINAL DISCHARGE DIAGNOSES: 1. ST-elevation myocardial infarction, status post left heart catheterization with left anterior descending artery percutaneous coronary intervention with stent placement with a LifeVest upon discharge. 2. Acute left middle cerebral artery infarct. 3. Type 2 diabetes. 4. Hyperlipidemia. 5. Medical noncompliance. 6. Urinary retention, resolved. CONSULTANTS: Neurology, Cardiology. PHYSICAL EXAMINATION: VITAL SIGNS: Temperature 96.2, pulse 83, respiratory rate 12, blood pressure 121/67, pulse ox 99% on room air. LABORATORY FINDINGS: Show white count 8.6, hemoglobin 11, hematocrit 33, platelets of 314. Chemistry; sodium 130, potassium 3.7, chloride 100, bicarbonate 23, anion gap of 10, BUN 19, creatinine is 0.73, glucose is 81, calcium is 8. BNP is 1584. Albumin 2.7. TSH was 8.6. Troponins were elevated. MICROBIOLOGY: None. IMAGING STUDIES: Chest x-ray shows left basilar atelectasis. Repeat chest x-ray shows left basilar atelectasis. CT brain showed chronic lacunar infarct at the left putamen, age-indeterminate lacunar infract of the right upper putamen. Carotid Doppler, there is no hemodynamically significant stenosis in the bilateral internal carotid system. CT of the head and neck, no acute abnormality, no hemodynamically significant stenosis of the neck area or intracranial circulation. 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 Other arthrosclerotic changes as described above. CT of the head showed acute infarct at the left MCA distribution involving the left posterior insula and inferior parietal lobe. No intracranial hemorrhage. No other changes compared to previous CT. HOSPITAL COURSE: A 64-year-old female, came into the emergency room initially with complaints of lightheadedness, dizziness, not feeling well. Had an EKG that showed STEMI requiring urgent and emergent left heart catheterization performed by Cardiology. The patient underwent left heart catheterization with status post LAD PCI with stent placement. The patient was eventually transferred to ICU, started on Integrilin drip as well as other anti-platelet therapy as well as cardioprotective medications. While in the ICU, the patient did extremely well with no other issues. She denies any chest pain after the procedure. Due to her reduced LV function, Cardiology recommended a LifeVest, which has been provided prior to being discharged. Also, the patient was complaining of underlying slurred speech on admission, apparently after further imaging the patient was found to have a left MCA infarct. The patient had acute CVA seen on imaging studies. CT brain shows acute infarct at the left MCA distribution along the left posterior insula and inferior frontal lobe. The patient was on anti-platelet therapy, statins, and Neurology was consulted. She worked with PT and OT in which she did extremely well. She does not need snf facility or outpatient PT and OT. She did have slurred speech, which improved tremendously and does not use speech therapy anymore. The patient will need a MRI of the brain in six weeks time due to recent cardiac stent placement, it is contraindicated at this time. From a Cardiology standpoint, the patient has been cleared. We will continue with cardioprotective medications as well as anti-platelet therapy as well as LifeVest was provided to them. As per Neurology, no further workup was needed. Anti-platelet therapy, statin and the patient will need MRI of the brain in six weeks time, status post recent left heart catheterization. The patient was discharged on cardioprotective med as well as oral diuretics. On the day of discharge, vital signs were stable, labs reviewed and stable. The patient was seen, evaluated, examined thoroughly on the day of discharge. No other complaints. The patient verbalized understanding and agrees to plan of care to follow up as an outpatient with the primary care physician in 1 week, Neurology and Cardiology in 2 weeks' time. The patient was also found to have elevated A1c and LDL, started on premeal insulin as well as long-acting Lantus and also was started on anti-platelet therapy as well as stat. The patient had diabetic education while here in the hospital stay. MEDICATIONS: See med reconciliation form. DISPOSITION: To home. CONDITION: Stable. DIET: Heart healthy. In the event of any worsening symptoms, the patient was advised to come back to the ED for further evaluation. Discharge summary took greater than 35 minutes. MD SUKHJINDER Luna/ELVIRA /[id number]
--- NOTE | 2019-09-21 17:03 | Operative Report ---
DATE OF PROCEDURE: 08/24/2019 SURGEON: Jordan Tejeda DO PROCEDURES PERFORMED: 1. Conscious sedation, 1 hour. 2. Selective coronary angiography x2. 3. Percutaneous transluminal coronary angioplasty and drug-eluting stent placement to the left anterior descending coronary artery. PREPROCEDURE DIAGNOSIS: ST-elevation myocardial infarction. POSTPROCEDURE DIAGNOSIS: ST-elevation myocardial infarction. ESTIMATED BLOOD LOSS: Less than 10 mL. SPECIMENS REMOVED: None. PROCEDURE IN DETAIL: After informed consent was obtained, the patient was brought to the cardiac catheterization laboratory in a fasting and nonsedated state. Her right wrist was prepped and draped in the usual sterile fashion. A 2% lidocaine was used to infiltrate the right wrist for local anesthesia. Using micropuncture needle, the right radial artery was accessed via the modified Seldinger technique and a 56 slender sheath was placed. Next, the left main was cannulated with an XB LAD 3.5 guide catheter. Diagnostic imaging revealed significant occlusions of the LAD. The patient received systemic heparin for therapeutic anticoagulation. Next, lesions were crossed with a Whisper wire and predilated with a 2.5 mm balloon. The distal portion of the LAD was stented with a 2.5 x 34 Resolute [place] drug-eluting stent. The midportion was stented with a 2.5 x 18 Resolute Yefri drug-eluting stent. The proximal portion was stented with a 3 x 34 [place] Resolute drug-eluting stent. I attempted to cross back into a diagonal branch that was severely diseased, however, this proved to be unsuccessful. Final angioplasty results were excellent. PROCEDURAL FINDINGS: 1. Left main coronary artery is patent. 2. Left anterior descending coronary artery has a 30% to 40% proximal stenosis. The midportion has a subtotal 99% stenosis. There are two other distal 70% lesions. The first diagonal branch is a small caliber vessel with an ostial 95% stenosis. 3. The left circumflex coronary artery has a 50% mid stenosis. There is a bifurcating OM that distally has a proximal 60% to 70% stenosis. 4. Right coronary artery is a dominant vessel and provides posterior descending coronary. The mid RCA has a 30% to 40% stenosis. The PDA itself has a 50% stenosis. INTERVENTION RESULTS: Successful percutaneous coronary intervention of left anterior descending coronary artery. Pre-PCI VINICIO flow was 2. Post-PCI VINICIO flow was 3. Postprocedure stenosis less than 10%. IMPRESSION: Coronary artery disease. RECOMMENDATIONS: Continue dual antiplatelet therapy. DO LE Cervantes/MODL /[id number]
== END 2019-08-31 16:50 | disposition home or self-care (01) | DRG 246 ==
LOC: ER 10:31 → PACU V 12:39 → ICU 17:10 → MED/SURG2 08-28 10:15
PROVIDERS: ADMIT Internal Medicine; ATTEND Internal Medicine
PROC: 027136Z Dilation of Coronary Artery, Two Arteries with Three Drug-eluting Intraluminal Devices, Percutaneous Approach (ICD-10-PCS; principal; 2019-08-24)
PROC: 4A023N7 Measurement of Cardiac Sampling and Pressure, Left Heart, Percutaneous Approach (ICD-10-PCS; 2019-08-24)
PROC: B2111ZZ Fluoroscopy of Multiple Coronary Arteries using Low Osmolar Contrast (ICD-10-PCS; 2019-08-24)
DX: I21.09 ST elevation (STEMI) myocardial infarction involving other coronary artery of anterior wall (principal); I50.21 Acute systolic (congestive) heart failure; I63.512 Cerebral infarction due to unspecified occlusion or stenosis of left middle cerebral artery; R47.01 Aphasia; Z91.19 Patient's noncompliance with other medical treatment and regimen; Z82.49 Family history of ischemic heart disease and other diseases of the circulatory system; E78.5 Hyperlipidemia, unspecified; I25.119 Atherosclerotic heart disease of native coronary artery with unspecified angina pectoris; I11.0 Hypertensive heart disease with heart failure; R47.1 Dysarthria and anarthria; R33.9 Retention of urine, unspecified; Z79.82 Long term (current) use of aspirin; Z79.4 Long term (current) use of insulin; E11.65 Type 2 diabetes mellitus with hyperglycemia
CPT/HCPCS: 36415; 70450; 70496; 70498; 71045; 80048; 80053; 80061; 82550; 82553; 82948; 83036; 83880; 84443; 84484; 85025; 85610; 85730; 92523; 92928; 93005; 93307; 93454; 93880; 96372; 97139; 99284; C1725; C1769; C1874; C1887; J1327; J1644; J1815; J1817; J1940; J2001; J2250; J2405; J3010; J3480; J7030; Q0162; Q9967

== ENCOUNTER 2019-09-05 13:19 | Inpatient (IN) | payer BC ==
[~2019-09-05] VITALS: Ht 157.5 cm; Wt 64.9 kg
[2019-09-05] MEDS ORDERED: FUROSEMIDE INJ 100 MG in SODIUM CHLORIDE 0.9% 100 ML 90 ML IV SCH (14:30)
[2019-09-05] MEDS ORDERED: DEXTROSE 50% SYRINGE 50 ML IV PRN (14:30)
[2019-09-05] MEDS ORDERED: FUROSEMIDE INJ 10 MG/ML 2 ML VIAL IV ONE (14:30)
[2019-09-05 14:33] LABS: BASOPHILS % 0.3 % (0.0-1.0); EOSINOPHILS % 0.3 % (0.0-6.0); HEMATOCRIT 34.1 % (34.2-44.1); HEMOGLOBIN 11.6 g/dL (12.0-16.0); LYMPHOCYTES # (AUTO) 1.1 (1.0-3.2); LYMPHOCYTES % 11.2 % (18.0-39.1); MEAN CORPUSCULAR HEMOGLOBIN 29.8 pg (28-32); MEAN CORPUSCULAR VOLUME 87.7 fL (81-99); MONOCYTES % 9.7 % (4.4-11.3); NEUTROPHILS # (AUTO) 7.8 (2.1-6.9); PLATELET COUNT 393 x10e3/uL (140-360); RED BLOOD COUNT 3.89 x10e6/uL (3.6-5.1); RED CELL DISTRIBUTION WIDTH 12.9 % (11.7-14.4)
[2019-09-05 14:46] LABS: PARTIAL THROMBOPLASTIN TIME 31.3 seconds (23.8-35.5); PROTHROMBIN TIME 13.7 seconds (11.9-14.5)
--- NOTE | 2019-09-05 15:00 | Diagnostic Imaging Report ---
ADDENDUM #1 Due to an image transmission error, the incorrect patient's image was initially uploaded. This was corrected and the correct report is as follows: EXAMINATION: CHEST SINGLE (PORTABLE) INDICATION: Shortness of breath. COMPARISON: None FINDINGS: LINES/TUBES:EKG leads overlie the chest. Numerous metallic electrodes project over the chest. LUNGS:The lung volumes are low. Multifocal bilateral airspace opacities. PLEURA:Likely small bilateral pleural effusions. MEDIASTINUM:The lower portions of the cardiac silhouette are obscured by lung base consolidation. BONES/SOFT TISSUES:No acute osseous injury. ABDOMEN:No free air under the diaphragm. IMPRESSION: Low lung volumes with bilateral multifocal patchy opacities concerning for multifocal aspiration and/or pneumonia. Signed by: Chau Dorman MD on 09/05/2019 3:14 PM ORIGINAL REPORT EXAMINATION: CHEST SINGLE (PORTABLE) INDICATION: Shortness of breath COMPARISON: Chest radiograph 08/30/2019 FINDINGS: LINES/TUBES:EKG leads overlie the chest. Port catheter projects over the right upper abdomen with tip not visualized. LUNGS:Lungs are well-inflated. No focal consolidation or pulmonary edema. Slight granuloma at the right lung base. PLEURA:No pleural effusion or pneumothorax. MEDIASTINUM:The cardiomediastinal silhouette appears normal in size and shape. Atherosclerotic calcifications of the thoracic aorta. BONES/SOFT TISSUES:No acute osseous injury. ABDOMEN:No free air under the diaphragm. IMPRESSION: No focal pneumonia or pulmonary edema. Signed by: Chau Dorman MD on 09/05/2019 2:56 PM
[2019-09-05 15:15] LABS: ALANINE AMINOTRANSFERASE 25 IU/L (0-55); ALBUMIN 2.2 g/dL (3.5-5.0); ALBUMIN/GLOBULIN RATIO 0.5 (0.8-2.0); ALKALINE PHOSPHATASE 244 IU/L (40-150); ANION GAP 14.1 mmol/L (8-16); BLOOD UREA NITROGEN 18 mg/dL (7-26); BUN/CREATININE RATIO 24 (6-25); CALCIUM 8.6 mg/dL (8.4-10.2); CARBON DIOXIDE 21 mmol/L (22-29); CHLORIDE 95 mmol/L (98-107); CREATINE KINASE 95 IU/L (29-168); CREATININE, SERUM 0.75 mg/dL (0.57-1.11); EST GLOMERULAR FILTRATION RATE > 60 ML/MIN (60-); GLUCOSE 223 mg/dL (74-118); MAGNESIUM 1.8 MG/DL (1.3-2.1); POTASSIUM 4.1 mmol/L (3.5-5.1); SODIUM 126 mmol/L (136-145)
[2019-09-05] MEDS: AZITHROMYCIN 500MG/NS 250 ML 250 ML IV SCH (16:15)
[2019-09-05] MEDS: INSULIN LISPRO 100 UNIT/1 ML 3ML VIAL SQ SCH ×2 (16:30→21:11)
[2019-09-05] MEDS: PIPER-TAZ 3.375 GM 50 ML IV SCH (18:00)
[2019-09-05 18:21] VITALS: BP 144/100
[2019-09-05 19:10] LABS: CREATINE KINASE MB 2.6 ng/mL (0-5.0)
[2019-09-05] MEDS ORDERED: BRILINTA90 MG (19:55)
[2019-09-05] MEDS ORDERED: ASPIRIN81 MG PO (19:55)
[2019-09-05] MEDS ORDERED: METOPROLOL TART25 MG PO (19:55)
[2019-09-05] MEDS ORDERED: POTASSIUM CHLO10 ME1 PO (19:55)
[2019-09-05] MEDS ORDERED: LASIX40 MG PO (19:55)
[2019-09-05] MEDS ORDERED: NOVOLOG100 UNIT/1 SC (19:55)
[2019-09-05] MEDS ORDERED: LEVEMIR100 UNIT/1 (19:55)
[2019-09-05] MEDS ORDERED: LIPITOR20 MG (19:55)
[2019-09-05] MEDS ORDERED: ALBUTEROL/IPRATROPIUM 3 ML NEB NEB STA (20:10)
[2019-09-05] MEDS ORDERED: TICAGRELOR 90 MG TABLET PO STA (20:10)
[2019-09-05] MEDS ORDERED: ASPIRIN 81 MG CHEW TAB PO STA (20:10)
[2019-09-05] MEDS ORDERED: ATORVASTATIN 20 MG TAB PO SCH (21:00)
[2019-09-05] MEDS ORDERED: MELATONIN 5 MG TABLET PO SCH (21:00)
[2019-09-05] MEDS: ATORVASTATIN 40 MG TAB PO SCH (21:02)
[2019-09-05] MEDS: FUROSEMIDE INJ 100 MG in SODIUM CHLORIDE 0.9% 100 ML 90 ML IV SCH (21:02)
[2019-09-05] MEDS: INSULIN GLARGINE 100 UNITS/ML VIAL SQ SCH (21:12)
[2019-09-05] MEDS: ALBUTEROL/IPRATROPIUM 3 ML NEB NEB SCH (23:10)
[2019-09-06] VITALS (12 sets, daily range): BP systolic 104–122; BP diastolic 56–72
[2019-09-06] MEDS: PIPER-TAZ 3.375 GM 50 ML IV SCH ×4 (00:08→19:30)
[2019-09-06] MEDS: ALBUTEROL/IPRATROPIUM 3 ML NEB NEB SCH ×6 (03:02→23:45)
[2019-09-06 05:16] LABS: BASOPHILS % 0.4 % (0.0-1.0); EOSINOPHILS # (AUTO) 0.1 (0.0-0.4); EOSINOPHILS % 0.6 % (0.0-6.0); HEMATOCRIT 31.9 % (34.2-44.1); HEMOGLOBIN 10.8 g/dL (12.0-16.0); LYMPHOCYTES # (AUTO) 1.4 (1.0-3.2); LYMPHOCYTES % 17.5 % (18.0-39.1); MEAN CORPUSCULAR HEMOGLOBIN 29.3 pg (28-32); MEAN CORPUSCULAR HGB CONC 33.9 g/dL (31-35); MEAN CORPUSCULAR VOLUME 86.4 fL (81-99); MONOCYTES # (AUTO) 0.9 (0.2-0.8); MONOCYTES % 11.4 % (4.4-11.3); NEUTROPHILS # (AUTO) 5.7 (2.1-6.9); NEUTROPHILS % 69.7 % (38.7-80.0); PLATELET COUNT 359 x10e3/uL (140-360); RED BLOOD COUNT 3.69 x10e6/uL (3.6-5.1); RED CELL DISTRIBUTION WIDTH 12.7 % (11.7-14.4)
[2019-09-06] MEDS: FUROSEMIDE INJ 100 MG in SODIUM CHLORIDE 0.9% 100 ML 90 ML IV SCH ×3 (05:17→22:36)
--- NOTE | 2019-09-06 05:45 | NUR ---
PATIENT KEPT WANTING TO TRY PURWICK FOR VOIDING BUT SYSTEM WAS NOT WORKING AFTER SEVERAL ATTEMPTS BY NURSING THE PATIENT KEPT VOIDING AROUND INTO DIAPER AND WAS RETAINING OVER 600ML URINE. NURSE INSERTED RIGGS CATH 16FR AND GOT 900ML URINE IN BAG, CLEANED PATIENT AND EDUCATED PATIENT ON RIGGS CARE.
[2019-09-06 05:48] LABS: ALANINE AMINOTRANSFERASE 23 IU/L (0-55); ALBUMIN 2.3 g/dL (3.5-5.0); ALBUMIN/GLOBULIN RATIO 0.5 (0.8-2.0); ALKALINE PHOSPHATASE 222 IU/L (40-150); ANION GAP 14.4 mmol/L (8-16); BLOOD UREA NITROGEN 16 mg/dL (7-26); BUN/CREATININE RATIO 22 (6-25); CALCIUM 9.1 mg/dL (8.4-10.2); CARBON DIOXIDE 23 mmol/L (22-29); CHLORIDE 99 mmol/L (98-107); CREATININE, SERUM 0.74 mg/dL (0.57-1.11); EST GLOMERULAR FILTRATION RATE > 60 ML/MIN (60-); GLUCOSE 155 mg/dL (74-118); POTASSIUM 3.4 mmol/L (3.5-5.1); SODIUM 133 mmol/L (136-145)
--- NOTE | 2019-09-06 06:40 | Diagnostic Imaging Report ---
EXAMINATION: CHEST SINGLE (PORTABLE) INDICATION: ^fluid overload ^[id number] ^0450 COMPARISON: 09/05/2019 FINDINGS: AP view TUBES and LINES: Again seen multiple leads and monitoring devices are overlying chest and abdomen LUNGS: Low lung volumes. Moderate to severe pulmonary edema. PLEURA: No pneumothorax. Small to moderate bilateral pleural effusions. HEART AND MEDIASTINUM: The cardiomediastinal silhouette is obscured. BONES AND SOFT TISSUES: No acute osseous lesion. Soft tissues are unremarkable. UPPER ABDOMEN: No free air under the diaphragm. IMPRESSION: Moderate to severe pulmonary edema and bilateral pleural effusions, worsened when compared to prior exam. Signed by: Dr. Nathanael Ford MD on 09/06/2019 6:36 AM
--- NOTE | 2019-09-06 08:13 | NUR ---
called Dr. Aden's answering service, left page to Dr. Singh.
[2019-09-06] MEDS: INSULIN LISPRO 100 UNIT/1 ML 3ML VIAL SQ SCH ×4 (08:40→21:33)
[2019-09-06] MEDS: ASPIRIN 81 MG CHEW TAB PO SCH (08:44)
[2019-09-06] MEDS: TICAGRELOR 90 MG TABLET PO SCH ×2 (08:44→21:27)
[2019-09-06] MEDS: METOPROLOL TARTRATE 25 MG TAB PO SCH (08:45)
--- NOTE | 2019-09-06 08:59 | NUR ---
Placed call to Dr. Malathi Tejeda cell left message regarding elevated 3rd troponin wating for call back
[2019-09-06] MEDS ORDERED: HYDRALAZINE HCL 20 MG/ML VIAL IV PRN (12:30)
--- NOTE | 2019-09-06 13:51 | History and Physical ---
CHIEF COMPLAINT: Shortness of breath, lower extremity edema. HISTORY OF PRESENT ILLNESS: This is a 64-year-old female, who was recently discharged after having a STEMI, status post left heart catheterization with PCI and the LAD. Also subsequently developed acute left middle cerebral artery infarct, requiring both Cardiology and Neurology consultations at that time. Now, presents to the cardiology's office with shortness of breath, lower extremity edema and was brought in for further management and care. On her last discharge, she had a left heart catheterization with LAD PCI stent placement. At that time, she was discharged with a LifeVest due to a very low EF on 2D echo. She was discharged on cardioprotective medications, anti-platelet therapy, statins as well as diuretics. She reports upon discharge, she did well for few days, but then continued to get worse in terms of her lower extremity edema and shortness of breath. The patient reports she was very compliant with her diet, in terms of low-sodium diet and decreased fluid intake. The patient reports she was very compliant with her medications. The patient came into the ER yesterday due to worsening shortness of breath and was started on Lasix drip. The patient has had significant amount of urine output and currently, she is doing very well. The patient is seen and evaluated at bedside on the medical floor. She is currently doing good with no other issues at this time. REVIEW OF SYSTEMS: Pertinent positives: Shortness of breath, lower extremity edema. Pertinent negatives: Denies any chest pain, palpitation, nausea, vomiting, diarrhea, dysuria, hematuria, frequency, urgency, lightheadedness, dizziness, abdominal pain, headaches, cough, congestion, fever, or any other complaints. The rest of the 14-point review of systems have been reviewed with the patient and are negative. ALLERGIES: NO KNOWN DRUG ALLERGIES. HOME MEDICATIONS: 1. Aspirin 81 mg daily. 2. Lipitor 80 mg daily. 3. Lasix 40 mg daily. 4. Premeal Humalog. 5. Metoprolol tartrate 25 mg daily. 6. Potassium chloride 10 mEq p.o. b.i.d. 7. Brilinta 90 mg twice daily. 8. Levemir. PAST MEDICAL HISTORY: Recent acute CVA, left MCA infarct earlier this month August 2019, recent STEMI status post PCI to the LAD earlier August 2019, type 2 diabetes, hypertension, hyperlipidemia, CHF with a low EF, and hypertension. PAST SURGICAL HISTORY: Recent left heart catheterization PCI to the LAD. FAMILY HISTORY: Hypertension and diabetes. SOCIAL HISTORY: No drugs. No alcohol. Does not smoke. Good social support. She is . She has children. No other issues at this time. PHYSICAL EXAMINATION: VITAL SIGNS: Temperature is 98.9, pulse is 79, respiratory rate is 18, blood pressure 118/70, pulse ox 99%. She is on 2 L nasal cannula. GENERAL: Not in acute distress. Alert and oriented x3. Cooperative on examination. HEENT: Head; normocephalic, atraumatic. Eyes; pupils are equal, round, and reactive to light bilaterally. Extraocular movements intact bilaterally. Throat; no evidence of erythema or exudates in the posterior pharynx. Has poor dentition. NECK: Supple. Good range of motion. PULMONARY: She does have fine crackles and positive rales on examination. No wheezing appreciated. CARDIOVASCULAR: Positive S1 and S2. No murmurs, rubs, or gallops appreciated. ABDOMEN: Soft, nondistended, and nontender to palpation. Bowel sounds present. MUSCULOSKELETAL: Strength is 5/5 throughout. No evidence of any muscle deficits on examination. No weakness appreciated. NEUROLOGIC: Cranial nerve II through XII grossly intact. No evidence of any neurological deficits on exam. SKIN: Intact. Warm to touch. Good cap refill. PSYCHIATRIC: Normal affect and mood. EXTREMITIES: No edema. Good range of motion throughout. LABORATORY FINDINGS: Show white count 8.1, hemoglobin 10.8, hematocrit 31.9, platelets of 359. Coagulation; PT 13, INR 1, PTT 31. Chemistry; sodium 133, potassium 3.4, chloride 99, bicarb is 23, anion gap of 14, BUN is 16, creatinine is 0.74, glucose is 155, calcium 9.1. LFTs within normal range. Alkaline phosphatase 222. CK is 80, CK-MB 3, troponin was 2. BNP was 1034. Albumin is 2.3. MICROBIOLOGY: Blood cultures are pending. IMAGING STUDIES: Chest x-ray on admission shows no focal pneumonia or pulmonary edema. Repeat chest x-ray shows [id number] pulmonary edema and bilateral pleural effusions. Worsening when compared to prior chest x-ray. IMPRESSION: 1. Acute exacerbation of congestive heart failure with systolic dysfunction. 2. Type 2 diabetes. 3. Recent diagnosis of acute cerebrovascular accident. 4. Hypertension. 5. Hyperlipidemia. 6. Probable healthcare associated pneumonia. 7. Urinary retention. PLAN: At this time, continue with Lasix drip at 10 mg/hour. Continue with cardioprotective medications, anti-platelet therapy, statin, ETTA inhibitors, and Cardiology has been consulted and notified. As for her diabetes, we will continue with insulin sliding scale, long-acting Levemir, diabetic diet, and monitor closely. We will get PT and OT for a recent earlier in the month acute CVA. She will continue anti-platelet therapy and statins. This is not a current active issue at this time. Continue with antihypertensive medications, p.r.n. hydralazine. As for her probable pneumonia, she will be on IV antibiotics, azithromycin, and Zosyn. We will get a repeat chest x-ray in the morning. Monitor blood cultures. She does also have complaints of urinary retention. I feel that this is likely due to neurogenic bladder. The patient had long-standing type 2 diabetes for years, but was very noncompliant with her health. Last time on her admission, she did have some urinary retention, but resolved. At this time, she comes in with urinary retention, complaining of suprapubic pain, in which a Turk catheter was inserted. At this time, we will just go ahead and get Urology involved to come and evaluate her. She will likely go home with the Turk catheter and outpatient urodynamic studies as needed. Get PT and OT evaluation, heart healthy diet, and put her on Lovenox for DVT prophylaxis. Otherwise, the patient is currently in IMCU. I spent more than 40 minutes of critical care time on this case. MD SUKHJINDER Luna/ELVIRA /[id number]
[2019-09-06] MEDS: POTASSIUM CHLORIDE 20 MEQ TAB CR PO SCH ×2 (14:53→17:59)
[2019-09-06 16:11] LABS: CREATINE KINASE MB 2.2 ng/mL (0-5.0)
[2019-09-06] MEDS: AZITHROMYCIN 500MG/NS 250 ML 250 ML IV SCH (16:50)
[2019-09-06] MEDS: ENOXAPARIN 30 MG/0.3 ML SYR SC SCH (17:58)
[2019-09-06] MEDS: ATORVASTATIN 40 MG TAB PO SCH (21:27)
[2019-09-06] MEDS: INSULIN GLARGINE 100 UNITS/ML VIAL SQ SCH (21:29)
--- NOTE | 2019-09-06 23:03 | Consultation ---
DATE OF CONSULTATION: 09/06/2019 REASON FOR CONSULT: [id number] systolic heart failure, elevated troponin. CHIEF COMPLAINT: Shortness of breath. HISTORY OF PRESENT ILLNESS: The patient is a 64-year-old female, known to our service, had recent ST-elevation GA about a week ago, status post PCI. She been reduced significantly since her GA and was by 25% at the time of discharge. She presents with worsening shortness of breath and weakness. Denies any active chest pain, palpitations, or syncope. Says she has been drinking a lot of water at home and did not know that she was on salt and fluid restriction due to her congestive heart failure. PAST MEDICAL HISTORY: 1. Coronary artery disease, status post anterior GA recently. 2. Chronic systolic heart failure, EF of 25%. 3. Cerebrovascular accident. 4. Diabetes. FAMILY HISTORY: Noncontributory. SOCIAL HISTORY: The patient does not smoke, drink, or abuse drugs. REVIEW OF SYSTEMS: As per HPI, otherwise negative. OUTPATIENT MEDICATIONS: Reviewed. Please see MAR for details. ALLERGIES: REVIEWED. PLEASE SEE MAR FOR DETAILS. OBJECTIVE: VITAL SIGNS: Temperature afebrile, pulse 98, respiratory rate 18, blood pressure 100/70, and saturating 98% on nasal cannula. GENERAL: Middle-aged female, in no acute distress. CARDIOVASCULAR: Regular rate and rhythm. No murmurs, rubs, or gallops. LUNGS: Bibasilar crackles. ABDOMEN: Soft, nontender, nondistended. NEURO AND PSYCH: Alert and oriented to person, place, and time. Normal affect. INPATIENT MEDICATIONS: Reviewed. LABORATORY DATA: Reviewed. TELEMETRY DATA: Reviewed, shows normal sinus rhythm with sinus tachycardia. ASSESSMENT AND PLAN: 1. Coronary artery disease, status post recent PCI to the LAD after late-presenter ST-segment elevation myocardial infarction .. 2. Myaat-kz-xykjsym systolic heart failure with ejection fraction of 25%. 3. Elevated troponins. PLAN: Troponins elevated due to combination of type 2 GA in the setting of heart failure as well as likely still coming down from her massive anterior GA and she suffered last week, one suspect additional acute coronary syndrome. Continue her doing dual-antiplatelet therapy, otherwise no need for heparinization at this time. Continue IV diuretics. The patient had urinary retention, now status post Turk with good urine output. Thank you for this consult. We will continue to follow. MD AGNES Childs/ELVIRA /[id number]
[2019-09-07] VITALS (7 sets, daily range): BP systolic 112–130; BP diastolic 66–84
--- NOTE | 2019-09-07 | NUR ---
patient had bm
[2019-09-07] MEDS: PIPER-TAZ 3.375 GM 50 ML IV SCH ×4 (00:51→18:31)
[2019-09-07] MEDS: ALBUTEROL/IPRATROPIUM 3 ML NEB NEB SCH ×6 (03:30→23:00)
[2019-09-07 05:33] LABS: BASOPHILS # (AUTO) 0.1 (0.0-0.1); BASOPHILS % 0.5 % (0.0-1.0); EOSINOPHILS # (AUTO) 0.1 (0.0-0.4); EOSINOPHILS % 0.5 % (0.0-6.0); HEMATOCRIT 33.6 % (34.2-44.1); HEMOGLOBIN 10.7 g/dL (12.0-16.0); LYMPHOCYTES # (AUTO) 1.3 (1.0-3.2); LYMPHOCYTES % 12.9 % (18.0-39.1); MEAN CORPUSCULAR HEMOGLOBIN 28.5 pg (28-32); MEAN CORPUSCULAR HGB CONC 31.8 g/dL (31-35); MEAN CORPUSCULAR VOLUME 89.6 fL (81-99); MONOCYTES # (AUTO) 0.9 (0.2-0.8); MONOCYTES % 8.7 % (4.4-11.3); PLATELET COUNT 364 x10e3/uL (140-360); RED BLOOD COUNT 3.75 x10e6/uL (3.6-5.1)
[2019-09-07 05:54] LABS: ANION GAP 13.5 mmol/L (8-16); BLOOD UREA NITROGEN 16 mg/dL (7-26); BUN/CREATININE RATIO 20 (6-25); CALCIUM 9.2 mg/dL (8.4-10.2); CARBON DIOXIDE 27 mmol/L (22-29); CHLORIDE 102 mmol/L (98-107); CREATININE, SERUM 0.82 mg/dL (0.57-1.11); EST GLOMERULAR FILTRATION RATE > 60 ML/MIN (60-); GLUCOSE 150 mg/dL (74-118); POTASSIUM 3.5 mmol/L (3.5-5.1); SODIUM 139 mmol/L (136-145)
--- NOTE | 2019-09-07 06:58 | NUR ---
patient endorsed to next shift for continuity of care.
--- NOTE | 2019-09-07 07:01 | Diagnostic Imaging Report ---
EXAMINATION: CHEST SINGLE (PORTABLE) INDICATION: ^SOB ^[id number] ^[id number] COMPARISON: 09/06/2019 FINDINGS: AP view TUBES and LINES: Again seen multiple leads and monitoring devices overlying chest and abdomen LUNGS: Low lung volumes. Moderate to severe pulmonary edema. PLEURA: No pneumothorax. Small to moderate bilateral pleural effusions, slightly improved on the right side when compared to prior x-ray. HEART AND MEDIASTINUM: The cardiomediastinal silhouette is obscured. BONES AND SOFT TISSUES: No acute osseous lesion. Soft tissues are unremarkable. UPPER ABDOMEN: No free air under the diaphragm. IMPRESSION: Moderate to severe pulmonary edema. Bilateral pleural effusions, slightly decreased on the right side when compared to prior exam. Signed by: Dr. Nathanael Ford MD on 09/07/2019 6:58 AM
[2019-09-07] MEDS: INSULIN LISPRO 100 UNIT/1 ML 3ML VIAL SQ SCH ×4 (08:25→20:30)
[2019-09-07] MEDS: POTASSIUM CHLORIDE 20 MEQ TAB CR PO SCH ×3 (09:00→16:59)
[2019-09-07] MEDS: ASPIRIN 81 MG CHEW TAB PO SCH (09:25)
[2019-09-07] MEDS: TICAGRELOR 90 MG TABLET PO SCH ×2 (09:25→20:30)
[2019-09-07] MEDS: METOPROLOL TARTRATE 25 MG TAB PO SCH (09:27)
--- NOTE | 2019-09-07 11:23 | Progress Note ---
DATE: 09/07/2019 Medicine Progress Note SUBJECTIVE: The patient is doing much better today. She is off nasal cannula. She still cannot lie flat. No overnight events. She did have some difficulty sleeping, lying flat is what she reports to me. Her lower extremity edema has improved tremendously. PHYSICAL EXAMINATION: VITAL SIGNS: Temperature is 98.6, pulse 99, respiratory rate is 21, blood pressure is 127/67, pulse ox 100% and she is on room air. GENERAL: Not in acute distress. Alert and oriented x3. Cooperative on examination. HEENT: Head, normocephalic and atraumatic. Eyes, pupils are equal, round, and reactive to light bilaterally. Extraocular movements intact bilaterally. Throat, no evidence of erythema or exudates in the posterior pharynx. Has poor dentition. NECK: Supple. Good range of motion. PULMONARY: Clear to auscultation bilaterally. She has positive rales and mild crackles. No rhonchi. CARDIOVASCULAR: Positive S1 and S2. No murmurs, rubs, or gallops appreciated. ABDOMEN: Soft, nondistended, and nontender to palpation. Bowel sounds present. MUSCULOSKELETAL: Strength is 5/5 throughout. No evidence of any muscle deficits on examination. No weakness appreciated. NEUROLOGIC: Cranial nerves II through XII grossly intact. No evidence of any neurological deficits on exam. SKIN: Intact. Warm to touch. Good cap refill. PSYCHIATRIC: Normal affect and mood. EXTREMITIES: No edema. Good range of motion throughout. LABORATORY FINDINGS: Show white count 10.4, hemoglobin 10.7, hematocrit 34, and platelets of 364. Coagulation; PT 13, INR 1, and PTT 31. Chemistry; sodium 139, potassium 3.5, chloride 102, bicarb 27, anion gap of 13, BUN 16, creatinine is 0.82, glucose is 150, and calcium is 9.2. MICROBIOLOGY: Blood cultures, no growth to date. IMAGING STUDIES: Chest x-ray shows [id number] pulmonary edema. Bilateral pleural effusions. IMPRESSION: 1. Acute exacerbation of congestive heart failure with systolic dysfunction. 2. Type 2 diabetes. 3. Recent diagnosis of cerebrovascular accident. 4. Hypertension. 5. Hyperlipidemia. 6. Probable healthcare-associated pneumonia. 7. Urinary retention. PLAN: Continue with the Lasix drip at 10 mg/hour. Replace electrolytes. Get a.m. labs. Cardiology is following closely. Continue with insulin sliding scale, long-acting insulin, and Accu-Cheks. Continue with dual anti-platelet therapy, cardioprotective medications, and statins. Continue with antibiotics for now. As for her urinary retention, Urology evaluated the patient. She will continue with Turk catheter with outpatient followup for urodynamic studies. Continue working with Physical Therapy and Occupational Therapy. Lovenox for DVT prophylaxis. Heart-healthy diet. The patient continues to be in IMCU, still on drips. Critical care time 32 minutes. MD SUKHJINDER Luna/KAITLYNNL /[id number]
[2019-09-07] MEDS: FUROSEMIDE INJ 100 MG in SODIUM CHLORIDE 0.9% 100 ML 90 ML IV SCH ×2 (11:30→20:40)
--- NOTE | 2019-09-07 14:14 | Consultation ---
DATE OF CONSULTATION: 09/07/2019 Urologic Consultation Consultation is called by Dr. Keita. CHIEF COMPLAINT/REASON FOR CONSULTATION: Urinary retention. HISTORY OF PRESENT ILLNESS: Mrs. Trejo is a very pleasant 64-year-old female, admitted to the hospital after recent myocardial infarction with a CHF flare. The patient experienced acute urinary retention for over 800 mL. She denied dysuria. Denied gross hematuria. PAST MEDICAL HISTORY: Recent myocardial infarction, recent acute stroke, left MCA infarct on August 31, 2019; type 2 diabetes mellitus, hypertension, hyperlipidemia, CHF, low ejection fraction, hypertension. MEDICATIONS: Please see MAR. ALLERGIES: NKDA. SOCIAL HISTORY: No smoking or drinking. FAMILY HISTORY: Denied urologic stones or malignancies. REVIEW OF SYSTEMS: Noncontributory other than problems mentioned above for 12-organ systems. PHYSICAL EXAMINATION: GENERAL: Middle-aged female, in no acute distress currently. VITAL SIGNS: Her temperature is 98.6, pulse 80, respirations 19, and blood pressure 127/67. HEENT: Sclerae anicteric. NECK: Supple. BACK: Without costovertebral angle tenderness bilaterally. ABDOMEN: Soft. It is nontender. It is nondistended. No palpable mass. No palpable hernias. No palpable lymphadenopathy. : Normal female external genitalia. EXTREMITIES: No edema. NEURO: Moves all four extremities. PSYCH: Alert and mood appropriate. SKIN: Intact. Normal color. PERTINENT LABORATORY DATA: Sodium 139, potassium 3.5, chloride 102, bicarb 27, BUN 16, creatinine 0.82, glucose 150. Hemoglobin 10, hematocrit 33, and platelet count 364,000, white cell count 10,000. PT 13.7, PTT 31.3. IMPRESSION: 1. Urinary retention. 2. Hypokalemia. 3. Anemia. 4. Medically-induced coagulopathy. PLAN: Would continue Turk catheter. The patient should follow up as an outpatient for urodynamics. We will defer heme and lytes to the primary service. Thank you for allowing me to participate in the care of your patient. We will be happy to follow along with you. MD SRUTHI Mae/MODL /[id number] cc: MD Tarun Luna MD
--- NOTE | 2019-09-07 15:00 | NUR ---
Handoff report to nurse DARREN Torres, made aware leg bag teaching and Turk teaching needs to be done and demonstrated, per Dr. Tarun Nam and follow up with him outpatient for urodynamics study. Verbalized understanding.
--- NOTE | 2019-09-07 15:18 | NUR ---
Patient transferred to unit from [facility]. Patient arrived via wheelchair. Patient is AAOx3. Lung chavez diminished to auscultation. Bowel sounds present x4. Right hand 20G IV in place and left hand 22G in place. Lasix drip infusing. No s/s of distress noted
[2019-09-07] MEDS: AZITHROMYCIN 500MG/NS 250 ML 250 ML IV SCH (16:49)
[2019-09-07] MEDS: ENOXAPARIN 30 MG/0.3 ML SYR SC SCH (16:59)
--- NOTE | 2019-09-07 17:49 | NUR ---
Nutrition Screen Note RD Recommendation for Physician: - Recommend adding low sodium diet restriction, fluid restriction per MD Plan of Care: RD following, monitoring for tolerance and adequacy Nutrition reason for involvement: Nutrition Risk Trigger- dx CHF Primary Diagnose(s): CHF PMH: DM2, CVA, STEMI, HTN, HLD, CHF Ht: 62 in Wt: 167 lb BMI: 30.5 kg/m2 IBW: [address] Assessment: (09/07) 64 YOF admitted for CHF, seen today per dx screen. Pt recently D/C'd from hospital last week for CVA, STEMI, and CHF with extensive diet education provided to pt and daughter x 3. Pt reports decreased appetite currently, c/o SOB- currently on O2 per nasal canula. Noted significant wt/fluid gain from wt of 67.2 kg kg last week. Reviewed Na diet and fluid restriction with pt, reports good compliance at home. Pt denies GI distress. All questions and concerns addressed at time of visit. Chart reviewed. Labs and meds reviewed. Will monitor and continue to follow. Current Diet: 1600 ADA Malnutrition Evaluation (09/07/19) The patient does not meet criteria for a specified degree of malnutrition at this time. Will re-evaluate at follow-up as appropriate. Diet Education Needs Assessment: Diet education indicated, reviewed Na and fluid restriction. Diet tolerance: tolerating po Nutrition Care Level: low Signed: Molly Tirado RD, LD, [facility]
[2019-09-07] MEDS: ATORVASTATIN 40 MG TAB PO SCH (20:30)
[2019-09-07] MEDS: INSULIN GLARGINE 100 UNITS/ML VIAL SQ SCH (20:30)
[2019-09-07] MEDS: MELATONIN 5 MG TABLET PO PRN (20:30)
--- NOTE | 2019-09-07 23:45 | Progress Note ---
DATE: 09/07/2019 Cardiology Progress Note SUBJECTIVE: No major events overnight. Now transferred to the floor. OBJECTIVE: VITAL SIGNS: Temperature afebrile, pulse 103, respiratory rate 22, blood pressure 124/77, saturating 96% on nasal cannula. GENERAL: Middle-aged woman, in no acute distress. CARDIOVASCULAR: Regular rate and rhythm. No murmurs, rubs, or gallops. LUNGS: Bibasilar crackles. ABDOMEN: Soft, nontender, nondistended. NEURO AND PSYCH: Alert and oriented to person, place, and time. Normal affect. INPATIENT MEDICATIONS: Reviewed. LABORATORY DATA: Reviewed. TELEMETRY DATA: Reviewed, shows sinus tachycardia. ASSESSMENT: 1. Ywxgz-ai-doyuvrn systolic heart failure exacerbation. 2. Coronary artery disease status post recent STEMI and PCI to the LAD and diagonal. 3. Pulmonary edema. Continue aggressive IV diuretic, diuresing well and feeling better. Replete potassium as necessary. Continue aspirin and Brilinta. Metoprolol succinate 25 mg daily. We will up titrate as tolerated. We will add low-dose ETTA or ARB if blood pressure tolerates. Thank you for this consult. We will continue to follow. MD AGNES Childs/ELVIRA /[id number]
[2019-09-08] VITALS (7 sets, daily range): BP systolic 101–135; BP diastolic 53–70
[2019-09-08] MEDS ORDERED: SODIUM CHLORIDE 0.9% 250ML 250 ML ONE ×2 (00:07→19:20)
[2019-09-08] MEDS: PIPER-TAZ 3.375 GM 50 ML IV SCH ×4 (00:13→18:05)
[2019-09-08] MEDS: ALBUTEROL/IPRATROPIUM 3 ML NEB NEB SCH ×3 (03:00→10:30)
[2019-09-08 05:51] LABS: BASOPHILS # (AUTO) 0.1 (0.0-0.1); BASOPHILS % 0.5 % (0.0-1.0); EOSINOPHILS # (AUTO) 0.1 (0.0-0.4); EOSINOPHILS % 0.9 % (0.0-6.0); HEMATOCRIT 33.2 % (34.2-44.1); HEMOGLOBIN 10.6 g/dL (12.0-16.0); LYMPHOCYTES # (AUTO) 1.3 (1.0-3.2); LYMPHOCYTES % 14.4 % (18.0-39.1); MEAN CORPUSCULAR HEMOGLOBIN 28.6 pg (28-32); MEAN CORPUSCULAR HGB CONC 31.9 g/dL (31-35); MEAN CORPUSCULAR VOLUME 89.7 fL (81-99); MONOCYTES % 10.5 % (4.4-11.3); NEUTROPHILS # (AUTO) 6.7 (2.1-6.9); NEUTROPHILS % 73.4 % (38.7-80.0); PLATELET COUNT 381 x10e3/uL (140-360); RED CELL DISTRIBUTION WIDTH 13.1 % (11.7-14.4)
[2019-09-08 06:07] LABS: ANION GAP 14.3 mmol/L (8-16); BLOOD UREA NITROGEN 15 mg/dL (7-26); BUN/CREATININE RATIO 18 (6-25); CALCIUM 9.7 mg/dL (8.4-10.2); CARBON DIOXIDE 26 mmol/L (22-29); CHLORIDE 103 mmol/L (98-107); CREATININE, SERUM 0.84 mg/dL (0.57-1.11); EST GLOMERULAR FILTRATION RATE > 60 ML/MIN (60-); GLUCOSE 113 mg/dL (74-118); POTASSIUM 3.3 mmol/L (3.5-5.1); SODIUM 140 mmol/L (136-145)
[2019-09-08] MEDS: FUROSEMIDE INJ 100 MG in SODIUM CHLORIDE 0.9% 100 ML 90 ML IV SCH ×2 (06:30→18:05)
--- NOTE | 2019-09-08 07:00 | NUR ---
The pt. is awake and alert at bedside rounding and offers no complaint at this time.
--- NOTE | 2019-09-08 07:18 | Diagnostic Imaging Report ---
EXAMINATION: CHEST SINGLE (PORTABLE) INDICATION: ^SOB ^[id number] ^[id number] COMPARISON: 09/07/2019 FINDINGS: AP view TUBES and LINES: Again seen multiple leads and monitoring devices overlying chest and abdomen LUNGS: Low lung volumes. Moderate pulmonary edema. PLEURA: No pneumothorax. Small to moderate bilateral pleural effusions, unchanged. HEART AND MEDIASTINUM: The cardiomediastinal silhouette is obscured. BONES AND SOFT TISSUES: No acute osseous lesion. Soft tissues are unremarkable. UPPER ABDOMEN: No free air under the diaphragm. IMPRESSION: Moderate pulmonary edema and bilateral pleural effusions, not significantly changed from prior exam. Signed by: Dr. Nathanael Ford MD on 09/08/2019 7:15 AM
[2019-09-08] MEDS: INSULIN LISPRO 100 UNIT/1 ML 3ML VIAL SQ SCH ×4 (07:30→21:50)
[2019-09-08] MEDS: METOPROLOL SUCCINATE 25 MG TAB XL PO SCH (08:58)
[2019-09-08] MEDS: ASPIRIN 81 MG CHEW TAB PO SCH (08:58)
[2019-09-08] MEDS: TICAGRELOR 90 MG TABLET PO SCH ×2 (09:01→21:50)
[2019-09-08] MEDS: POTASSIUM CHLORIDE 20 MEQ TAB CR PO SCH (09:02)
[2019-09-08] MEDS ORDERED: POTASSIUM CHLORIDE 20 MEQ TAB CR PO SCH (12:00)
--- NOTE | 2019-09-08 12:00 | NUR ---
The pt. c/o nausea and the DrCayden is rounding and med was ordered for comp.
[2019-09-08] MEDS: ONDANSETRON HCL INJ 2MG/ML 2ML 2 MG/ML VIAL IV PRN (12:45)
--- NOTE | 2019-09-08 16:01 | Progress Note ---
DATE: 09/08/2019 Medicine Progress Note SUBJECTIVE: The patient is doing much better, but still has difficulty lying flat. Chest x-ray still shows pulmonary edema. PHYSICAL EXAMINATION: VITAL SIGNS: Temperature is 98.2, pulse is 111, respiratory rate is 18, blood pressure 115/55, and pulse ox 96% on room air. GENERAL: Not in acute distress. Alert and oriented x3. Cooperative on examination. HEENT: Head, normocephalic and atraumatic. Eyes, pupils are equal, round, and reactive to light bilaterally. Extraocular movements intact bilaterally. Throat, no evidence of erythema or exudates in the posterior pharynx. Has poor dentition. NECK: Supple. Good range of motion. PULMONARY: Clear to auscultation bilaterally. No wheezing, no rales, no rhonchi, and no crackles appreciated. CARDIOVASCULAR: Positive S1 and S2. No murmurs, rubs, or gallops appreciated. ABDOMEN: Soft, nondistended, and nontender to palpation. Bowel sounds present. MUSCULOSKELETAL: Strength is 5/5 throughout. No evidence of any muscle deficits on examination. No weakness appreciated. NEUROLOGIC: Cranial nerves II through XII grossly intact. No evidence of any neurological deficits on exam. SKIN: Intact. Warm to touch. Good cap refill. PSYCHIATRIC: Normal affect and mood. EXTREMITIES: No edema. Good range of motion throughout. LABORATORY FINDINGS: Show white count 9.1, hemoglobin 10.6, hematocrit 33, and platelets of 381. Chemistry; sodium 140, potassium 3.3, chloride 103, bicarb 26, anion gap of 14, BUN is 15, creatinine is 0.84, glucose is 113, and calcium is 9.7. Coagulations normal. Blood cultures were negative. Chest x-ray this morning shows moderate pulmonary edema, bilateral pleural effusions. ASSESSMENT: 1. Acute exacerbation of congestive heart failure with systolic dysfunction with the LifeVest. 2. Type 2 diabetes. 3. Recent diagnosis of cerebrovascular accident. 4. Hypertension. 5. Hyperlipidemia. 6. Probable healthcare-associated pneumonia. 7. Urinary retention. PLAN: At this time, continue Lasix drip at 10 mg per hour. Volume restriction. Replace electrolytes with potassium accordingly. Cardiology is following. Continue with cardioprotective medications and dual anti-platelet therapy. Continue with insulin sliding scale, long-acting insulin, and Accu-Cheks. I did go ahead and consult with Pulmonary due to her pulmonary edema in which a chest x-ray has been ordered, may need further intervention. She still has difficulty with orthopnea and not ready for discharge. She is off oxygen at this current moment. As for urinary retention, she needs to continue with the Turk as an outpatient. As per Urology recommendations, get urodynamic studies. She will work with PT and OT. Lovenox for DVT prophylaxis. Heart-healthy diet. The patient is now on the medical floor and is much more stable. Continue with same plan of care and monitor closely with all the consultants. Consultants; Pulmonary, Cardiology, and Urology. MD SUKHJINDER Luna/ELVIRA /[id number]
--- NOTE | 2019-09-08 17:00 | NUR ---
The pt. c/o nosebleed and a small amt blood noted on towel post blowing her nose.
[2019-09-08] MEDS: AZITHROMYCIN 500MG/NS 250 ML 250 ML IV SCH (17:20)
[2019-09-08] MEDS: ENOXAPARIN 30 MG/0.3 ML SYR SC SCH (17:21)
--- NOTE | 2019-09-08 19:56 | Consultation ---
DATE OF CONSULTATION: 09/08/2019 Pulmonary Consultation REASON FOR CONSULTATION: Abnormal chest x-ray, shortness of breath. HISTORY OF PRESENT ILLNESS: Ms. Hoyos is a 64-year-old woman, who was recently diagnosed with an ST-segment elevation VA earlier in August associated with stroke. She required 3 stents during PCI. She also was found to have diabetes and high blood pressure. Stent was placed in the LAD. She was subsequently discharged home. She was found to have a 25% ejection fraction at that time. She returns with increasing shortness of breath, increased swelling, and orthopnea. She denies sputum production, but she does have some minimal dry cough. PAST MEDICAL HISTORY: 1. Coronary artery disease with recent VA. 2. CHF, systolic with 25% ejection fraction. 3. Middle cerebral artery MCA. 4. Diabetes mellitus. 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 She is negative for tobacco, alcohol, or drug use. FAMILY HISTORY: Noncontributory. MEDICATIONS: An MAR reviewed. They include specifically Lasix infusion at 10 mg an hour. PHYSICAL EXAMINATION: VITAL SIGNS: Initially at arrival, her saturation was 93%. She was treated with nasal cannula oxygen. At this time, on 4 L, her saturation is 98%. Heart rate is 98, blood pressure 135/61, respiratory rate is 18. GENERAL APPEARANCE: This is a very pleasant woman, awake, alert, not in distress. HEENT: Head is normocephalic and atraumatic. Pupils are round and reactive. Mucous membranes are moist. NEUROLOGIC: She appears to have some issue with some word finding. NECK: Supple without JVD or lymphadenopathy. Trachea is midline. CHEST: Some basilar crackles. She is wearing a LifeVest. HEART: Regular rate and rhythm without murmurs, rubs, or gallops. ABDOMEN: Soft, nontender, nondistended. EXTREMITIES: MINI hose on, but she does have 1 to 2+ edema. DIAGNOSTIC DATA: I have reviewed her chest x-rays. The most recent appears to have an errant name on it, but I am not sure that it is hers. However, previous x-rays done on the shows significant pulmonary edema bilaterally with small bilateral effusions, which compared to when she arrived do show some improvement. LABORATORY DATA: White count was 9 at admission, hemoglobin and hematocrit were 11 and 34% with 393,000 platelets. Currently, her white count is stable at 9, hemoglobin and hematocrit are 10.6 and 33%. No left shift. Chemistry today, potassium is 3.3, creatinine of 0.84, glucose has been 119 to 177. Troponin was as high as 2.01. B-natriuretic peptide on the 15 was 1034. ASSESSMENT: 1. Acute hypoxemic respiratory failure. 2. Acute pulmonary edema, cardiogenic. 3. Acute systolic heart failure. 4. Coronary artery disease. 5. Diabetes mellitus. RECOMMENDATIONS AND PLAN: At this point, continue the Lasix infusion. I will change the nebulizers to as needed. She does not have much cough or wheezing. Continue antibiotics, although I think the likelihood of nosocomial pneumonia is low and I will repeat a 2-view chest x-ray, especially given the one in her jacket today is that is a different name on it. MD NAVDEEP Pope/ELVIRA /[id number]
--- NOTE | 2019-09-08 20:36 | Progress Note ---
DATE: 09/08/2019 SUBJECTIVE: No major events overnight. Breathing is better, however, still unable to lay flat. OBJECTIVE: VITAL SIGNS: Temperature afebrile, pulse 98, respiratory rate 20, blood pressure 117/70, saturating 96% on room air. GENERAL: Middle-aged female, well developed, well nourished, and appears thin and frail. CARDIOVASCULAR: Tachycardic,regular. No murmurs, rubs, or gallops. LUNGS: Clear to auscultation. Crackles at the bases. ABDOMEN: Soft, nontender, nondistended. NEURO AND PSYCH: Alert and oriented to person, place, and time. Normal affect. EXTREMITIES: Lower extremities without significant pitting edema, though has jugular venous distention to 14 cm. INPATIENT MEDICATIONS: Reviewed. LABORATORY DATA: Reviewed. TELEMETRY DATA: Reviewed shows sinus rhythm with sinus tachycardia. IMAGING DATA: Reviewed. Chest x-ray shows pulmonary edema, still slightly improved from admission. ASSESSMENT: 1. Acute on chronic systolic heart failure exacerbation. 2. Ischemic cardiomyopathy, EF of 25%. 3. Coronary artery disease, status post recent stenting and PCI to the LAD and diagonal. 4. Pulmonary edema. PLAN: Continue IV diuresis. We will add spironolactone. The patient is on aspirin, Brilinta, and high-intensity statin. Continue metoprolol succinate 25 mg daily. We will add ETTA or ARB if blood pressure tolerates. The patient has a LifeVest in place from previous admission given low EF and recent revascularization. She will need significant diuresis given pulmonary edema. Thank you for this consult. We will continue to follow. MD AGNES Childs/ELVIRA /[id number]
[2019-09-08] MEDS: INSULIN GLARGINE 100 UNITS/ML VIAL SQ SCH (21:50)
[2019-09-08] MEDS: ATORVASTATIN 40 MG TAB PO SCH (21:50)
[2019-09-09] VITALS (8 sets, daily range): BP systolic 105–137; BP diastolic 58–73
[2019-09-09] MEDS: PIPER-TAZ 3.375 GM 50 ML IV SCH ×5 (00:33→21:40)
[2019-09-09] MEDS: FUROSEMIDE INJ 100 MG in SODIUM CHLORIDE 0.9% 100 ML 90 ML IV SCH ×2 (03:24→14:58)
[2019-09-09 06:44] LABS: BASOPHILS # (AUTO) 0.1 (0.0-0.1); BASOPHILS % 0.6 % (0.0-1.0); EOSINOPHILS # (AUTO) 0.1 (0.0-0.4); EOSINOPHILS % 1.2 % (0.0-6.0); HEMATOCRIT 34.2 % (34.2-44.1); HEMOGLOBIN 10.7 g/dL (12.0-16.0); LYMPHOCYTES # (AUTO) 1.4 (1.0-3.2); LYMPHOCYTES % 16.6 % (18.0-39.1); MEAN CORPUSCULAR HEMOGLOBIN 28.8 pg (28-32); MEAN CORPUSCULAR HGB CONC 31.3 g/dL (31-35); MEAN CORPUSCULAR VOLUME 91.9 fL (81-99); MONOCYTES # (AUTO) 0.8 (0.2-0.8); MONOCYTES % 8.7 % (4.4-11.3); NEUTROPHILS # (AUTO) 6.2 (2.1-6.9); NEUTROPHILS % 72.4 % (38.7-80.0); PLATELET COUNT 358 x10e3/uL (140-360); RED BLOOD COUNT 3.72 x10e6/uL (3.6-5.1); RED CELL DISTRIBUTION WIDTH 13.2 % (11.7-14.4)
[2019-09-09 07:04] LABS: ANION GAP 15.3 mmol/L (8-16); CALCIUM 9.7 mg/dL (8.4-10.2); CREATININE, SERUM 1.02 mg/dL (0.57-1.11); POTASSIUM 3.3 mmol/L (3.5-5.1)
[2019-09-09] MEDS: ALBUTEROL/IPRATROPIUM 3 ML NEB NEB PRN ×2 (07:35→19:45)
--- NOTE | 2019-09-09 07:43 | NUR ---
Rounding completed and the pt. reports she feels better today.
--- NOTE | 2019-09-09 07:56 | Diagnostic Imaging Report ---
Examination: Single AP view of the chest. COMPARISON: 09/08/2019 INDICATION: Congestive heart failure DISCUSSION: Lines/tubes: Overlying defibrillator. Lungs: Pulmonary edema. Lung base atelectasis. Pleura: Small effusions. Heart and mediastinum: The heart and the mediastinum are unremarkable. Bones and soft tissues: No acute bony abnormalities. IMPRESSION: Stable pulmonary edema with small pleural effusions Signed by: Dr. Bernabe Miles M.D. on 09/09/2019 7:53 AM
[2019-09-09] MEDS: INSULIN LISPRO 100 UNIT/1 ML 3ML VIAL SQ SCH ×4 (08:02→21:13)
[2019-09-09] MEDS: SPIRONOLACTONE 25 MG TAB PO SCH (09:31)
[2019-09-09] MEDS: ASPIRIN 81 MG CHEW TAB PO SCH (09:31)
[2019-09-09] MEDS: TICAGRELOR 90 MG TABLET PO SCH ×2 (09:31→20:49)
[2019-09-09] MEDS: METOPROLOL SUCCINATE 25 MG TAB XL PO SCH (09:32)
[2019-09-09] MEDS: POTASSIUM CHLORIDE 20 MEQ TAB CR PO SCH ×2 (12:55→17:05)
[2019-09-09] MEDS ORDERED: CHLOROTHIAZIDE SODIUM 500 MG VIAL IV NR (13:45)
--- NOTE | 2019-09-09 15:30 | Progress Note ---
DATE: 09/09/2019 Medicine Progress Note SUBJECTIVE: The patient is doing well. She was back on oxygen though. She is approximately like 2 L nasal cannula. She will continue with the Lasix drip for now. Chest x-ray has improved tremendously. No overnight events. PHYSICAL EXAMINATION: VITAL SIGNS: Temperature is 97.5, pulse 98, respiratory rate is 18, blood pressure 113/58, pulse ox is 97% on 2 L nasal cannula. GENERAL: Not in acute distress. Alert and oriented x3. Cooperative on examination. HEENT: Head; normocephalic, atraumatic. Eyes; pupils are equal, round, and reactive to light bilaterally. Extraocular movements intact bilaterally. Throat; no evidence of erythema or exudates in the posterior pharynx. Has poor dentition. NECK: Supple. Good range of motion. PULMONARY: Clear to auscultation. Fine crackles appreciated in the lower bases. Positive rales, but much improved. CARDIOVASCULAR: Positive S1 and S2. No murmurs, rubs, or gallops appreciated. ABDOMEN: Soft, nondistended, and nontender to palpation. Bowel sounds present. MUSCULOSKELETAL: Strength is 5/5 throughout. No evidence of any muscle deficits on examination. No weakness appreciated. NEUROLOGIC: Cranial nerve II through XII grossly intact. No evidence of any neurological deficits on exam. SKIN: Intact. Warm to touch. Good cap refill. PSYCHIATRIC: Normal affect and mood. EXTREMITIES: No edema. Good range of motion throughout. LABORATORY FINDINGS: Show white count is 8.5, hemoglobin 10.2, hematocrit 34, platelets of 358. Chemistry; sodium 140, potassium 3.3, chloride 102, bicarb 26, anion gap of 15, BUN is 15, creatinine is 1.0, calcium is 9.7. Blood cultures, no growth to-date. Chest x-ray reviewed shows stable pulmonary edema with small pleural effusions. IMPRESSION: 1. Acute exacerbation of congestive heart failure with systolic dysfunction with a LifeVest. 2. Type 2 diabetes. 3. Recent diagnosis of cerebrovascular accident. 4. Hypertension. 5. Hyperlipidemia. 6. Probable healthcare associated pneumonia. 7. Urinary retention. PLAN: At this time, continue with Lasix drip at 10 mg/hour. Being monitored and managed by Cardiology and Pulmonary. Chest x-ray shows much improvement. Get a.m. labs. Chest x-ray in the morning. Continue with insulin sliding scale, Accu-Cheks, long-acting insulin. Continue with dual anti-platelet therapy, statins. Resume same antihypertensive medications. Monitor very closely. I will continue with IV antibiotics. Blood cultures were negative. As for urinary retention, she will continue with the Turk upon discharge to follow up with Urology as an outpatient. Consults Pulmonary, Cardiology, and Neurology. MD SUKHJINDER Luna/MODBriseyda /[id number]
--- NOTE | 2019-09-09 15:46 | Progress Note ---
DATE: 09/09/2019 Cardiology Progress Note SUBJECTIVE: The patient denies chest pain. She continues to have shortness of breath. She remains on Lasix drip. OBJECTIVE: VITAL SIGNS: Temperature 97.5 degrees, pulse 98, respiratory rate 18, blood pressure 113/58, and oxygen saturation 97% on 2 L nasal cannula. GENERAL: Awake and alert in no acute distress. LUNGS: Clear to auscultation bilaterally other than crackles at the bases. CARDIOVASCULAR: Normal rate, regular rhythm. No murmur. Normal S1, S2. ABDOMEN: Soft and nontender. EXTREMITIES: Trace edema. CARDIAC MEDICATIONS: 1. Metoprolol succinate 25 mg p.o. daily. 2. Furosemide 25 mg p.o. daily. 3. Aspirin 81 mg p.o. daily. 4. Furosemide 10 mg an hour. 5. Atorvastatin 80 mg p.o. at bedtime. 6. Enoxaparin 30 mg subcu daily. LABORATORY DATA: WBC 8.59, hemoglobin 10.7, hematocrit 35.2, and platelets 358. Sodium 140, potassium 3.3, chloride 102, CO2 of 26, BUN 15, creatinine 1.02. Chest x-ray, stable pulmonary edema with small pleural effusions. TELEMETRY: Normal sinus rhythm. IMPRESSION: 1. Acute on chronic systolic heart failure. 2. Ischemic cardiomyopathy, EF of 25%. 3. Coronary artery disease status post recent stenting and PCI of the LAD and diagonal. 4. Pulmonary edema. 5. Continue IV Lasix and spironolactone. Add one dose of chlorothiazide. Continue current cardiac medications, otherwise maintain on telemetry if she is not wearing her LifeVest. If blood pressure permits, we will attempt to add ETTA inhibitor. Thank you for this consult. We will continue to follow. Litzy Singh MD ABS/MODL /[id number]
[2019-09-09] MEDS: ENOXAPARIN 30 MG/0.3 ML SYR SC SCH (17:05)
[2019-09-09] MEDS: AZITHROMYCIN 500MG/NS 250 ML 250 ML IV SCH (17:08)
[2019-09-09] MEDS ORDERED: PROMETHAZINE 25MG/ NS 50ML (IV) IV PRN (19:45)
--- NOTE | 2019-09-09 20:30 | NUR ---
cliff langford for new consult, awaiting callback.
[2019-09-09] MEDS: ATORVASTATIN 40 MG TAB PO SCH (20:49)
[2019-09-09] MEDS: MELATONIN 5 MG TABLET PO PRN (20:49)
[2019-09-09] MEDS: INSULIN GLARGINE 100 UNITS/ML VIAL SQ SCH (21:00)
[2019-09-10] VITALS (7 sets, daily range): BP systolic 109–164; BP diastolic 56–66
[2019-09-10] MEDS: FUROSEMIDE INJ 100 MG in SODIUM CHLORIDE 0.9% 100 ML 90 ML IV SCH (01:55)
[2019-09-10 02:40] LABS: BILIRUBIN,URINE NEGATIVE (NEGATIVE); CLARITY,URINE CLEAR (CLEAR); COLOR,URINE YELLOW (YELLOW); KETONES,URINE NEGATIVE (NEGATIVE); LEUKOCYTE ESTERASE ,URINE TRACE (NEGATIVE); NITRITE,URINE NEGATIVE (NEGATIVE); PROTEIN,URINE DIPSTICK NEGATIVE (NEGATIVE); URINE UROBILINOGEN 0.2 mg/dL (0.2 - 1)
[2019-09-10 03:22] LABS: BACTERIA,URINE MANY /HPF; EPITHELIAL CELLS,URINE MANY /LPF; RBC,URINE >50 /HPF (0-5); WBC,URINE (MAN) >50 /HPF (0-5)
[2019-09-10] MEDS: PIPER-TAZ 3.375 GM 50 ML IV SCH ×3 (05:36→21:02)
[2019-09-10] MEDS: METOCLOPRAMIDE HCL 10 MG/2ML VIAL IV SCH ×3 (05:36→12:41)
[2019-09-10 06:06] LABS: ANION GAP 16.7 mmol/L (8-16); CALCIUM 10.2 mg/dL (8.4-10.2); CREATININE, SERUM 1.36 mg/dL (0.57-1.11); POTASSIUM 3.7 mmol/L (3.5-5.1)
[2019-09-10 06:20] LABS: AMYLASE 44 U/L (25-125); LIPASE 18 U/L (8-78)
--- NOTE | 2019-09-10 06:49 | Diagnostic Imaging Report ---
EXAMINATION: CHEST SINGLE (PORTABLE) INDICATION: ^SOB ^[id number] ^[id number] COMPARISON: 09/09/2019 FINDINGS: AP view TUBES and LINES: Again seen multiple leads and monitoring devices overlying chest and abdomen LUNGS: Low lung volumes. Moderate pulmonary edema. PLEURA: No pneumothorax. Small to moderate bilateral pleural effusions, unchanged. HEART AND MEDIASTINUM: The cardiomediastinal silhouette is obscured. BONES AND SOFT TISSUES: No acute osseous lesion. Soft tissues are unremarkable. UPPER ABDOMEN: No free air under the diaphragm. IMPRESSION: Moderate pulmonary edema and bilateral pleural effusions, not significantly changed from prior exam. Signed by: Dr. Nathanael Ford MD on 09/10/2019 6:45 AM
--- NOTE | 2019-09-10 07:16 | NUR ---
Received patient lying in bed. Respiration even and unlabored without SOB. Call light in reach.
[2019-09-10] MEDS: ASPIRIN 81 MG CHEW TAB PO SCH (08:17)
[2019-09-10] MEDS: METOPROLOL SUCCINATE 25 MG TAB XL PO SCH (08:17)
[2019-09-10] MEDS: PANTOPRAZOLE 40 MG 10ML VIAL IV SCH ×2 (08:17→15:57)
[2019-09-10] MEDS: SPIRONOLACTONE 25 MG TAB PO SCH (08:17)
[2019-09-10] MEDS: TICAGRELOR 90 MG TABLET PO SCH ×2 (08:18→21:02)
[2019-09-10] MEDS: INSULIN LISPRO 100 UNIT/1 ML 3ML VIAL SQ SCH ×4 (08:30→20:45)
--- NOTE | 2019-09-10 14:40 | NUR ---
Patient's ambulatory O2 sat is 97 without oxygen.
--- NOTE | 2019-09-10 14:51 | Progress Note ---
DATE: 09/10/2019 Medicine Progress Note SUBJECTIVE: The patient is feeling much better today. She does report that when she lies flat, she is still very short of breath. But she is otherwise sitting in a chair, breathing well. Oxygen was placed, but I am not sure if she truly needs it. We are going to try to wean her off oxygen. PHYSICAL EXAMINATION: VITAL SIGNS: Temperature is 97.8, pulse 97, respiratory rate is 20, blood pressure 164/66, pulse ox 99% on 2 L nasal cannula. GENERAL: Not in acute distress. Alert and oriented x3. Cooperative on examination. HEENT: Head; normocephalic, atraumatic. Eyes; pupils are equal, round, and reactive to light bilaterally. Extraocular movements intact bilaterally. Throat; no evidence of erythema or exudates in the posterior pharynx. Has poor dentition. NECK: Supple. Good range of motion. PULMONARY: Clear to auscultation bilaterally. No wheezing, no rales, no rhonchi, no crackles appreciated. CARDIOVASCULAR: Positive S1 and S2. No murmurs, rubs, or gallops appreciated. ABDOMEN: Soft, nondistended, and nontender to palpation. Bowel sounds present. MUSCULOSKELETAL: Strength is 5/5 throughout. No evidence of any muscle deficits on examination. No weakness appreciated. NEUROLOGIC: Cranial nerve II through XII grossly intact. No evidence of any neurological deficits on exam. SKIN: Intact. Warm to touch. Good cap refill. PSYCHIATRIC: Normal affect and mood. EXTREMITIES: No edema. Good range of motion throughout. LABORATORY FINDINGS: Show white count is 8.5, hemoglobin 10.9, hematocrit 34, platelets of 358. Chemistry; sodium 143, potassium 3.7, chloride 103, bicarb 27, anion gap of 16, BUN is 18, creatinine is 1.36, glucose is 130, and calcium is 10.2. MICROBIOLOGY: Urine cultures are pending. Blood cultures no growth today. IMAGING STUDIES: Chest x-ray this morning shows moderate pulmonary edema and bilateral pleural effusions not significantly changed from prior examination. IMPRESSION: 1. Acute exacerbation of congestive heart failure with systolic dysfunction with LifeVest placed. 2. Type 2 diabetes. 3. Recent diagnosis of cerebrovascular accident. 4. Hypertension. 5. Hyperlipidemia. 6. Probable healthcare associated pneumonia. 7. Urinary retention. 8. Acute kidney injury secondary to Lasix. PLAN: At this time, chest x-ray still shows some pulmonary edema, but her creatinine is elevated. The patient was on Lasix drip, but her creatinine was elevated, which now I had to discontinue it. I will put her on Bumex 2 mg p.o. b.i.d., Aldactone 25 mg daily. Replace potassium accordingly. I discussed this with Cardiology and Pulmonary as well. Chest x-ray was noted. We will get morning labs as well. Continue with cardioprotective medications. As for her nausea, it improved with oral Reglan and GI was consulted. All cultures were found to be negative. Consultants are Pulmonary, Cardiology, Urology, as well as GI. At this time, she will likely be here for several more days. Our goal is to wean her off oxygen and see if she can be discharged without, if she does, we will have to arrange for oxygen for home. MD SUKHJINDER Luna/ELVIRA /[id number]
[2019-09-10] MEDS: METOCLOPRAMIDE HCL 10 MG TAB PO SCH (15:57)
[2019-09-10] MEDS: BUMETANIDE 1 MG TAB PO SCH (15:57)
[2019-09-10] MEDS: ENOXAPARIN 30 MG/0.3 ML SYR SC SCH (15:57)
[2019-09-10] MEDS: AZITHROMYCIN 500MG/NS 250 ML 250 ML IV SCH (16:06)
--- NOTE | 2019-09-10 16:17 | Progress Note ---
DATE: 09/10/2019 Cardiology Progress Note SUBJECTIVE: The patient denies chest pain, however, she reports she continues to have orthopnea. OBJECTIVE: VITAL SIGNS: Temperature 97.8 degrees, pulse 97, respiratory rate is 20, blood pressure 164/66, and oxygen saturation 99% on 2 L nasal cannula. GENERAL: Awake and alert, in no distress. LUNGS: Clear to auscultation bilaterally other than crackles in the bases. CARDIOVASCULAR: Normal rate, regular rhythm. No murmur. Normal S1, S2. ABDOMEN: Soft, nontender. EXTREMITIES: 1+ pitting edema. CARDIAC MEDICATIONS: Metoprolol 25 mg p.o. daily, metoprolol succinate 25 mg p.o. daily, aspirin 81 mg p.o. daily, atorvastatin 80 mg p.o. at bedtime, and Bumex 2 mg p.o. b.i.d. LABORATORY DATA: Sodium 143, potassium 3.7, chloride 103, CO2 of 27, BUN 18, and creatinine 1.86. TELEMETRY: Normal sinus rhythm. IMPRESSION: 1. Gnomq-yw-ttxuats systolic heart failure. 2. Ischemic cardiomyopathy, EF 25%. 3. Coronary artery disease, status post recent stenting, percutaneous coronary intervention of left anterior descending and diagonal. 4. Pulmonary edema. RECOMMENDATIONS: Given rise in creatinine. The patient has been changed to p.o. Bumex. Monitor creatinine closely. Continue current cardiac medications. Continue LifeVest. If blood pressure permits and renal function stabilizes, add ETTA inhibitor. Thank you for this consult. We will continue to follow. Litzy Singh MD ABS/MODL /[id number]
[2019-09-10] MEDS ORDERED: BUMETANIDE 1 MG TAB PO SCH (17:00)
--- NOTE | 2019-09-10 18:57 | NUR ---
Report given to restaurant shift leader. Patient awake, alert .Respiration even and unlabored without SOB. Call light in reach.
--- NOTE | 2019-09-10 19:34 | NUR ---
Received bedside report from day nurse. Patient resting in bed, no s/s of distress or c/o pain at this time. All safety measures in place. Will continue to monitor.
[2019-09-10] MEDS ORDERED: SODIUM CHLORIDE 0.9% 250ML 250 ML ONE (20:58)
[2019-09-10] MEDS: INSULIN GLARGINE 100 UNITS/ML VIAL SQ SCH (21:00)
[2019-09-10] MEDS: ATORVASTATIN 40 MG TAB PO SCH (21:02)
[2019-09-11] VITALS (7 sets, daily range): BP systolic 112–131; BP diastolic 56–65
[2019-09-11] MEDS: PIPER-TAZ 3.375 GM 50 ML IV SCH ×3 (05:40→21:24)
[2019-09-11 05:59] LABS: BASOPHILS # (AUTO) 0.1 (0.0-0.1); BASOPHILS % 0.6 % (0.0-1.0); EOSINOPHILS # (AUTO) 0.3 (0.0-0.4); EOSINOPHILS % 2.7 % (0.0-6.0); HEMATOCRIT 34.5 % (34.2-44.1); HEMOGLOBIN 11.1 g/dL (12.0-16.0); LYMPHOCYTES # (AUTO) 1.3 (1.0-3.2); LYMPHOCYTES % 13.5 % (18.0-39.1); MEAN CORPUSCULAR HEMOGLOBIN 29.2 pg (28-32); MEAN CORPUSCULAR HGB CONC 32.2 g/dL (31-35); MEAN CORPUSCULAR VOLUME 90.8 fL (81-99); MONOCYTES # (AUTO) 0.7 (0.2-0.8); MONOCYTES % 7.3 % (4.4-11.3); NEUTROPHILS # (AUTO) 7.1 (2.1-6.9); NEUTROPHILS % 75.5 % (38.7-80.0); PLATELET COUNT 335 x10e3/uL (140-360); RED CELL DISTRIBUTION WIDTH 13.3 % (11.7-14.4)
[2019-09-11 06:08] LABS: ALBUMIN 2.4 g/dL (3.5-5.0); ALBUMIN/GLOBULIN RATIO 0.5 (0.8-2.0); ANION GAP 17.3 mmol/L (8-16); CALCIUM 9.7 mg/dL (8.4-10.2); CREATININE, SERUM 1.48 mg/dL (0.57-1.11); POTASSIUM 3.3 mmol/L (3.5-5.1)
--- NOTE | 2019-09-11 07:05 | NUR ---
Bedside report given to night nurse. Patient in stable condition, no s/s of distress at this time. All safety measures in place.
[2019-09-11] MEDS: INSULIN LISPRO 100 UNIT/1 ML 3ML VIAL SQ SCH ×4 (08:00→21:30)
--- NOTE | 2019-09-11 09:11 | Diagnostic Imaging Report ---
EXAM: Renal Ultrasound INDICATION: ^ARF ^[id number] ^[id number] COMPARISON: None TECHNIQUE: Transverse and longitudinal images of the kidneys and bladder were obtained. FINDINGS: Right Kidney: Length: 10.8 cm Appearance: Normal echogenicity. Collecting system: No hydronephrosis Stones: None Cyst/Mass: None Left Kidney: Length: 11.6 cm Appearance: Normal echogenicity. Collecting system: No hydronephrosis Stones: None Cyst/Mass: None Bladder: Turk catheter in the decompressed bladder. IMPRESSION: No hydronephrosis or renal calculi. Signed by: Chau Dorman MD on 09/11/2019 9:07 AM
[2019-09-11] MEDS: TICAGRELOR 90 MG TABLET PO SCH ×2 (09:53→21:24)
[2019-09-11] MEDS: ASPIRIN 81 MG CHEW TAB PO SCH (09:53)
[2019-09-11] MEDS: METOPROLOL SUCCINATE 25 MG TAB XL PO SCH (09:54)
[2019-09-11] MEDS: BUMETANIDE 1 MG TAB PO SCH ×2 (09:54→16:59)
[2019-09-11] MEDS: SPIRONOLACTONE 25 MG TAB PO SCH (09:55)
[2019-09-11] MEDS: METOCLOPRAMIDE HCL 10 MG TAB PO SCH ×3 (09:56→16:59)
[2019-09-11] MEDS: PANTOPRAZOLE 40 MG 10ML VIAL IV SCH ×2 (09:58→16:59)
--- NOTE | 2019-09-11 13:59 | Progress Note ---
DATE: 09/11/2019 Medicine Progress Note SUBJECTIVE: The patient reportedly complains of some shortness of breath, but I feel like there is a component of anxiety as well. She does have some trace edema, but it was much improved yesterday. I feel like the patient is probably noncompliant with her diet as well as her fluid intake despite me discussing this with her several times. She is on room air currently. We are going to try to ambulate her and see how she does with ambulation. She still has difficulty with laying flat, but she has significant heart failure, which this was discussed with her at bedside. PHYSICAL EXAMINATION: VITAL SIGNS: Temperature is 97.7, pulse 97, respiratory rate 28 prior to that was 18, but the patient is resting comfortably and does not looked tachypneic on exam. Blood pressure is 119/58, and pulse ox is 98% on room air. GENERAL: Not in acute distress. Alert and oriented x3. Cooperative on examination. HEENT: Normocephalic and atraumatic. Eyes; pupils are equal, round, and reactive to light bilaterally. Extraocular movements intact bilaterally. Neck: Supple, good range of motion. Throat; no evidence of erythema or exudates in the posterior pharynx. Has poor dentition. PULMONARY: Clear to auscultation bilaterally. No wheezing, rales, or rhonchi. No crackles appreciated. CARDIOVASCULAR: S1 and S2. No murmurs, rubs, or gallops. ABDOMEN: Soft, nontender, and nontender to palpation. Bowel sounds present. MUSCULOSKELETAL: Strength is 5/5 throughout. No evidence of any muscle deficits on examination. No weakness appreciated. NEUROLOGIC: Cranial nerves II through XII are grossly intact. No evidence of neurological deficits on exam. SKIN: Intact. Warm to touch. Good cap refill. PSYCHIATRIC: Normal affect and mood. EXTREMITIES: She has trace edema in bilateral lower extremities. LABORATORY DATA: Show white count is 9.4, hemoglobin 11.4, hematocrit is 34.5, and platelets of 335. Chemistry; sodium 141, potassium 3.3, chloride 101, bicarbonate 26, anion gap of 17, BUN is 18, creatinine is 1.48, glucose is 139, and calcium is 9.7, alkaline phosphatase 239, ALT 38, AST 39, total bilirubin 0.4, albumin 2.4, lipase is 18. Blood cultures no growth. Urine cultures are pending. IMAGING STUDIES: None today. IMPRESSION: 1. Acute exacerbation of congestive heart failure with systolic dysfunction with the LifeVest placed. 2. Type 2 diabetes. 3. Recent diagnosis of cerebrovascular accident. 4. Hypertension. 5. Hyperlipidemia. 6. Healthcare-associated pneumonia, probable. 7. Urinary retention. We will continue with Turk upon discharge. 8. Acute kidney injury, secondary to diuretics. PLAN: At this time, labs show elevated creatinine at 1.4. We did continue with Aldactone and oral Bumex. She reportedly states occasionally she is short of breath, but she is on room air. We are going to get her up and ambulate her to see if she short of breath upon ambulation or if she has any desaturations. She did not have any desaturation or hypoxia when ambulating. We will continue with Bumex and Aldactone cardioprotective medications. She is also followed by Cardiology. We will get a.m. labs and chest x-ray. Pulmonary is following as well. She will continue with the Turk upon discharge per Urology. Her nausea has improved with scheduled Reglan, likely has underlying gastroparesis, where GI is following as well. Continue follow with the senior market intelligence consultant's recommendations. I plan to see her back and discharge her tomorrow. She looks very stable right now, but want to see when she ambulates if she gets any hypoxia. I will go ahead and add a low-dose Ativan to see if that will help with her anxiety as I feels that part of this is also anxiety component as well. MD SUKHJINDER Luan/ELVIRA /[id number]
[2019-09-11] MEDS: LORAZEPAM 0.5 MG TAB PO PRN (14:22)
[2019-09-11] MEDS: AZITHROMYCIN 500MG/NS 250 ML 250 ML IV SCH (16:59)
[2019-09-11] MEDS: ENOXAPARIN 30 MG/0.3 ML SYR SC SCH (16:59)
--- NOTE | 2019-09-11 18:10 | Progress Note ---
DATE: 09/11/2019 Cardiology Progress Note SUBJECTIVE: The patient reports shortness of breath. No chest pain. OBJECTIVE: VITAL SIGNS: Temperature is 96.9, heart rate is 102, respirations are 18, blood pressure is 115/58, oxygen saturation 98% on 2 L nasal cannula. GENERAL: She is well appearing, no apparent distress. CARDIOVASCULAR: Tachycardic, regular rhythm. LUNGS: Diminished breath sounds at bases with scattered rales. ABDOMEN: Soft, nontender. EXTREMITIES: 2+ edema. LABORATORY DATA: Reviewed. Hemoglobin is 11.1. Creatinine is 1.48. TELEMETRY: Monitoring revealed normal sinus rhythm to sinus tachycardia. IMPRESSION: 1. Rzcbg-bv-tgmzkqg systolic congestive heart failure. 2. Ischemic cardiomyopathy. 3. Coronary artery disease, status post percutaneous coronary intervention the left anterior descending coronary artery. 4. Pulmonary edema. 5. Acute on chronic kidney disease. 6. Diabetes mellitus. 7. Hypertension. 8. Hyperlipidemia. RECOMMENDATIONS: Continue p.o. Bumex and Aldactone. Continue all other current cardiovascular medications. If she is stable, we will add Entresto; however, this can be done as an outpatient. Continue LifeVest. DO LE Cervantes/KAITLYNNL /[id number]
[2019-09-11] MEDS: ATORVASTATIN 40 MG TAB PO SCH (21:24)
[2019-09-11] MEDS: INSULIN GLARGINE 100 UNITS/ML VIAL SQ SCH (21:30)
[2019-09-12] VITALS (7 sets, daily range): BP systolic 96–140; BP diastolic 52–66
[2019-09-12 05:57] LABS: BASOPHILS # (AUTO) 0.1 (0.0-0.1); BASOPHILS % 0.8 % (0.0-1.0); EOSINOPHILS # (AUTO) 0.2 (0.0-0.4); EOSINOPHILS % 2.7 % (0.0-6.0); HEMATOCRIT 35.7 % (34.2-44.1); HEMOGLOBIN 11.4 g/dL (12.0-16.0); LYMPHOCYTES # (AUTO) 1.3 (1.0-3.2); LYMPHOCYTES % 14.6 % (18.0-39.1); MEAN CORPUSCULAR HEMOGLOBIN 29.2 pg (28-32); MEAN CORPUSCULAR HGB CONC 31.9 g/dL (31-35); MEAN CORPUSCULAR VOLUME 91.3 fL (81-99); MONOCYTES # (AUTO) 0.7 (0.2-0.8); MONOCYTES % 8.3 % (4.4-11.3); NEUTROPHILS # (AUTO) 6.5 (2.1-6.9); NEUTROPHILS % 73.4 % (38.7-80.0); PLATELET COUNT 305 x10e3/uL (140-360); RED BLOOD COUNT 3.91 x10e6/uL (3.6-5.1); RED CELL DISTRIBUTION WIDTH 13.3 % (11.7-14.4)
[2019-09-12] MEDS: PIPER-TAZ 3.375 GM 50 ML IV SCH ×2 (05:58→14:34)
[2019-09-12 06:06] LABS: ANION GAP 15.2 mmol/L (8-16); CALCIUM 9.5 mg/dL (8.4-10.2); CREATININE, SERUM 1.75 mg/dL (0.57-1.11); POTASSIUM 3.2 mmol/L (3.5-5.1)
[2019-09-12] MEDS: ALBUTEROL/IPRATROPIUM 3 ML NEB NEB PRN ×4 (07:05→19:35)
[2019-09-12] MEDS: INSULIN LISPRO 100 UNIT/1 ML 3ML VIAL SQ SCH ×4 (07:30→21:00)
--- NOTE | 2019-09-12 08:31 | NUR ---
Dr. Keita notified on potassium level 3.2 and creatinine level 1.75. New orders received.
--- NOTE | 2019-09-12 08:49 | Diagnostic Imaging Report ---
EXAMINATION: CHEST SINGLE (PORTABLE) INDICATION: Shortness of breath COMPARISON: Multiple prior chest radiographs, most recently of 09/10/2019 FINDINGS: LINES/TUBES:EKG leads and support devices as before. LUNGS:The lung volumes remain low. No significant interval change in multifocal airspace opacities at the left midlung zone and both lung bases. PLEURA:Small bilateral pleural effusions. No pneumothorax. MEDIASTINUM:The cardiomediastinal silhouette appears unchanged in size and shape. BONES/SOFT TISSUES:No acute osseous injury. ABDOMEN:No free air under the diaphragm. IMPRESSION: No significant interval change in low lung volumes with bibasilar patchy airspace opacities and multifocal left midlung zone patchy opacities concerning for aspiration and/or pneumonia in the proper clinical setting. Small bilateral pleural effusions. Signed by: Chau Dorman MD on 09/12/2019 8:45 AM
[2019-09-12] MEDS: SPIRONOLACTONE 25 MG TAB PO SCH (08:53)
[2019-09-12] MEDS: BUMETANIDE 1 MG TAB PO SCH (08:53)
[2019-09-12] MEDS ORDERED: POTASSIUM CHLORIDE 20 MEQ TAB CR PO STA (08:53)
--- NOTE | 2019-09-12 08:54 | NUR ---
Dr. Keita notified of chest x ray result.
[2019-09-12] MEDS: PANTOPRAZOLE 40 MG 10ML VIAL IV SCH ×2 (09:27→17:00)
[2019-09-12] MEDS: METOCLOPRAMIDE HCL 10 MG TAB PO SCH ×3 (09:27→17:00)
[2019-09-12] MEDS: ASPIRIN 81 MG CHEW TAB PO SCH (09:27)
[2019-09-12] MEDS: TICAGRELOR 90 MG TABLET PO SCH ×2 (09:27→23:56)
[2019-09-12] MEDS: METOPROLOL SUCCINATE 25 MG TAB XL PO SCH (09:27)
--- NOTE | 2019-09-12 10:30 | NUR ---
Received order to set up home oxygen for pt. CM spoke to pt at bedside. States to use any company that is in network with her insurance. Choice letter signed for [facility] and [employer]. Signed letter placed in chart. Copy to pt. LALY informed Hans Garcia with [facility] of referral. He will be by to machine pecan picker clinicals and deliver portables.
--- NOTE | 2019-09-12 11:35 | NUR ---
Hans Deras is here to deliver portable tank to pt's bedside.
--- NOTE | 2019-09-12 12:34 | Progress Note ---
DATE: 09/12/2019 Cardiology Progress Note SUBJECTIVE: The patient still reports significant shortness of breath with ambulation. No chest pain. OBJECTIVE: VITAL SIGNS: Temperature is 96.3, heart rate is 97, respirations are 18, blood pressure is 140/60, ox saturation is 100% on 2 L nasal cannula. GENERAL: She is an anxious-appearing woman, lying comfortably in bed. HEAD: Normocephalic, atraumatic. CARDIOVASCULAR: She has regular rate and rhythm. No significant murmur. Normal S1 and S2. LUNGS: Scattered rales at bases. ABDOMEN: Soft, nontender, nondistended. EXTREMITIES: 1+ edema. CARDIOVASCULAR MEDICATIONS: Reviewed. LABORATORY DATA: Reviewed. Creatinine is 1.75, potassium is 3.2. TELEMETRY: Monitoring reveals normal sinus rhythm. IMPRESSION: 1. Lmivo-kn-njwkohx systolic congestive heart failure. 2. Ischemic cardiomyopathy. 3. Coronary artery disease status post percutaneous coronary intervention. 4. Pulmonary edema. 5. Acute on chronic kidney disease. 6. Hypertension. 7. Hyperlipidemia. 8. Diabetes mellitus. 9. Anxiety. RECOMMENDATIONS: Continue p.o. Bumex and Aldactone. Unable to add Entresto given acute kidney injury. We will change Toprol to Coreg for better blood pressure reduction. Continue LifeVest. We will need to monitor creatinine. Jordan Tejeda DO BM/MODL /[id number]
--- NOTE | 2019-09-12 13:59 | Progress Note ---
DATE: 09/12/2019 Medicine Progress Note SUBJECTIVE: The patient now has her oxygen at bedside. Creatinine is elevated 1.73. The patient will stay overnight to monitor the creatinine level. Hold diuretics for today. PHYSICAL EXAMINATION: VITAL SIGNS: Temperature is 96.3, pulse 97, respiratory rate is 18, blood pressure 140/60, pulse ox 100% on 2 L nasal cannula. GENERAL: Not in acute distress. Alert and oriented x3. Cooperative on examination. HEENT: Head; normocephalic, atraumatic. Eyes; pupils are equal, round, and reactive to light bilaterally. Extraocular movements are intact bilaterally. Throat; no evidence of erythema or exudates in the posterior pharynx. Has poor dentition. NECK: Supple. Good range of motion. PULMONARY: Clear to auscultation bilaterally. No wheezing, no rales, no rhonchi, no crackles appreciated. CARDIOVASCULAR: Positive S1 and S2. No murmurs, rubs, or gallops appreciated. ABDOMEN: Soft, nondistended, and nontender to palpation. Bowel sounds present. MUSCULOSKELETAL: Strength is 5/5 throughout. No evidence of any muscle deficits on examination. No weakness appreciated. NEUROLOGIC: Cranial nerve II through XII grossly intact. No evidence of any neurological deficits on exam. SKIN: Intact. Warm to touch. Good cap refill. PSYCHIATRIC: Normal affect and mood. EXTREMITIES: No edema. Good range of motion throughout. LABORATORY FINDINGS: Show white count 8.9, hemoglobin 9.4, hematocrit 35.7, platelets of 305. Chemistry; sodium 143, potassium 3.2, chloride 103, bicarb 20, anion gap of 15, BUN is 20, creatinine is 1.75, glucose is 124, calcium 9.5. MICROBIOLOGY: None. IMAGING STUDIES: Chest x-ray from this morning showed no significant interval change and low lung volumes. Bibasilar patchy airspace opacity with multifocal mid lung zone patchy opacities. Small bilateral pleural effusion. IMPRESSION: 1. Acute exacerbation of congestive heart failure with systolic dysfunction with a LifeVest placed. 2. Type 2 diabetes. 3. Recent diagnosis of cerebrovascular accident. 4. Hypertension. 5. Hyperlipidemia. 6. Health care associated pneumonia, probable. 7. Urinary retention. We will continue with Turk on discharge. 8. Acute kidney injury secondary to diuretics. PLAN: At this time, we will hold all diuretics. Continue cardioprotective medications. Cardiology was following very closely. Continue with insulin sliding scale, long-acting insulin. Accu-Cheks. Blood pressure is better controlled, but the antihypertensive medications were adjusted accordingly recently today by Cardiology. Antibiotics were discontinued by Pulmonary. She will continue with the Turk upon discharge. Creatinine was elevated at 1.75. Hold diuretics for now. Replace potassium. Get repeat labs in the morning. Oxygen has been arranged for home. MD SUKHJINDER Luna/MODL /[id number]
[2019-09-12] MEDS: CARVEDILOL 12.5 MG TAB PO SCH (17:00)
[2019-09-12] MEDS: ENOXAPARIN 30 MG/0.3 ML SYR SC SCH (17:00)
[2019-09-12] MEDS: AZITHROMYCIN 500MG/NS 250 ML 250 ML IV SCH (17:17)
[2019-09-12] MEDS: LORAZEPAM 0.5 MG TAB PO PRN (18:55)
--- NOTE | 2019-09-12 19:30 | NUR ---
Patient visited in room during nursing rounds. Patient alert and oriented x3. Daughter at bedside. Turk in place for urinary retention. Pt ambulatory with assist prn. Pt on Lasix drip. Pt wearing life vest. Ambulatory in room with assist prn. Call roche within reach.
[2019-09-12] MEDS: INSULIN GLARGINE 100 UNITS/ML VIAL SQ SCH (21:00)
[2019-09-12] MEDS: ATORVASTATIN 40 MG TAB PO SCH (23:56)
[2019-09-13] VITALS (30 sets, daily range): BP systolic 88–165; BP diastolic 45–99
[2019-09-13 06:00] LABS: BASOPHILS # (AUTO) 0.1 (0.0-0.1); BASOPHILS % 0.6 % (0.0-1.0); EOSINOPHILS # (AUTO) 0.2 (0.0-0.4); EOSINOPHILS % 1.7 % (0.0-6.0); HEMATOCRIT 34.2 % (34.2-44.1); HEMOGLOBIN 10.7 g/dL (12.0-16.0); LYMPHOCYTES # (AUTO) 1.2 (1.0-3.2); LYMPHOCYTES % 12.5 % (18.0-39.1); MEAN CORPUSCULAR HEMOGLOBIN 28.7 pg (28-32); MEAN CORPUSCULAR HGB CONC 31.3 g/dL (31-35); MEAN CORPUSCULAR VOLUME 91.7 fL (81-99); MONOCYTES # (AUTO) 0.6 (0.2-0.8); MONOCYTES % 6.7 % (4.4-11.3); NEUTROPHILS # (AUTO) 7.4 (2.1-6.9); NEUTROPHILS % 78.1 % (38.7-80.0); PLATELET COUNT 270 x10e3/uL (140-360); RED BLOOD COUNT 3.73 x10e6/uL (3.6-5.1); RED CELL DISTRIBUTION WIDTH 13.3 % (11.7-14.4)
[2019-09-13 06:08] LABS: ANION GAP 17.5 mmol/L (8-16); CALCIUM 9.3 mg/dL (8.4-10.2); CREATININE, SERUM 1.89 mg/dL (0.57-1.11); POTASSIUM 3.5 mmol/L (3.5-5.1)
--- NOTE | 2019-09-13 06:48 | NUR ---
Called and left message for Dr. Tejeda/Dr. Aldridge to inform runs and beats (9) of Vtach. Pt currently in stable condition. Denies any discomfort except for minor shortness of breath. Awaiting on MD call back.
--- NOTE | 2019-09-13 07:00 | NUR ---
RECEIVED AM REPORT FROM RN AND MORNING ROUNDS DONE. PT IS ALERT RESTING IN BED, NO S/S OF DISTRESS. CALL LIGHT WITHIN REACH AND INSTRUCTED PT TO CALL RN FOR HELP, SIDE RAILS ARE UP AND BED IN LOWEST POSITION. DAUGHTER IS AT THE BEDSIDE.
[2019-09-13] MEDS: INSULIN LISPRO 100 UNIT/1 ML 3ML VIAL SQ SCH ×4 (07:30→21:56)
[2019-09-13] MEDS: TICAGRELOR 90 MG TABLET PO SCH ×2 (08:14→21:50)
[2019-09-13] MEDS: ASPIRIN 81 MG CHEW TAB PO SCH (08:15)
[2019-09-13] MEDS: CARVEDILOL 12.5 MG TAB PO SCH ×2 (08:15→17:00)
[2019-09-13] MEDS: METOCLOPRAMIDE HCL 10 MG TAB PO SCH ×3 (08:15→17:00)
[2019-09-13] MEDS: PANTOPRAZOLE 40 MG 10ML VIAL IV SCH ×2 (08:19→19:23)
[2019-09-13] MEDS: ONDANSETRON HCL INJ 2MG/ML 2ML 2 MG/ML VIAL IV PRN (10:40)
--- NOTE | 2019-09-13 11:00 | NUR ---
SPOKE WITH DR. CALIXTO OVER THE PHONE AND HE EXPLAINED THAT DR. GALLEGO WANTS TO START TREATING THE PATIENT WITH CARDIAC DRIPS, HE REQUESTED THAT WE GET A ROOM FOR THE PATIENT IN ICU SO THE PT CAN BE MONITORED ON THE DRIPS.
--- NOTE | 2019-09-13 11:45 | NUR ---
PT WAS TRANSFERRED TO ICU. PT LEFT THE UNIT VIA HOSPITAL BED IN STABLE CONDITION WITH THE NURSE AND TECH. ICU NURSE RECEIVED THE PT IN ROOM 192
--- NOTE | 2019-09-13 11:49 | Progress Note ---
DATE: 09/13/2019 Medicine Progress Note SUBJECTIVE: The patient is doing much better, but creatinine is elevated. She does look dehydrated on examination. I encouraged her to drink little bit more fluid. She may have been over-diuresed. PHYSICAL EXAMINATION: VITAL SIGNS: Temperature is 97.8, pulse is 107, respiratory rate is 19, blood pressure is 113/59, and pulse ox is 95%. She is on 2 L nasal cannula. GENERAL: Not in acute distress. Alert and oriented x3. Cooperative on examination. HEENT: Normocephalic, atraumatic. Eyes; pupils are equal, round, and reactive to light bilaterally. Extraocular movements are intact bilaterally. Neck; supple, good range of motion. Throat; no evidence of erythema or exudates in the posterior pharynx. Has poor dentition. PULMONARY: Clear to auscultation bilaterally. No wheezing, rales, or rhonchi. No crackles appreciated. CARDIOVASCULAR: Positive S1 and S2. No murmurs, rubs, or gallops appreciated. ABDOMEN: Soft, nondistended, and nontender to palpation. Bowel sounds present. MUSCULOSKELETAL: Strength is 5/5 throughout. No evidence of any muscle deficits on examination. No weakness appreciated. NEUROLOGIC: Cranial nerves II through XII grossly intact. No evidence of any neurological deficits on exam. SKIN: Intact. Warm to touch. Good cap refill. PSYCHIATRIC: Normal affect and mood. EXTREMITIES: No edema. Good range of motion throughout. LABORATORY DATA: CBC; reviewed, stable. Chemistry; sodium 142, potassium 3.5, chloride 103, bicarb 25, anion gap is 17. BUN is 20. Creatinine is 1.89 from 1.75. Glucose is 143, calcium 9.3. MICROBIOLOGY: None. IMAGING STUDIES: None. IMPRESSION: 1. Acute exacerbation of congestive heart failure with systolic dysfunction with a LifeVest placed. 2. Type 2 diabetes. 3. Recent diagnosis of cerebrovascular accident. 4. Hypertension. 5. Hyperlipidemia. 6. Healthcare-associated pneumonia. 7. Urinary retention. We will continue with Turk upon discharge. 8. Acute kidney injury, secondary to diuretics. 9. Hypoxia, requiring oxygen. PLAN: At this time, we will continue to hold all diuretics at this time. Get a.m. labs. Cardioprotective medications. She already has home oxygen at bedside. The reason why she will not be discharged today is her creatinine went up to 1.89. She does look dehydrated on examination. We will continue to hold diuretics. I encouraged her to drink little bit more fluid and we repeat labs tomorrow. If the creatinine does downtrend tomorrow, we will consider discharging home. I discussed this with the patient and the nursing staff. MD SUKHJINDER Luna/ELVIRA /[id number]
[2019-09-13 15:34] LABS: ANION GAP 14.4 mmol/L (8-16); CALCIUM 9.3 mg/dL (8.4-10.2); CREATININE, SERUM 2.01 mg/dL (0.57-1.11); POTASSIUM 3.4 mmol/L (3.5-5.1)
[2019-09-13] MEDS ORDERED: POTASSIUM CHLORIDE 20 MEQ TAB CR PO ONE (17:02)
[2019-09-13] MEDS ORDERED: AMIODARONE HCL 100 ML IV ONE (17:04)
[2019-09-13] MEDS ORDERED: AMIODARONE 900MG 500 ML IV ONE (17:06)
[2019-09-13] MEDS ORDERED: ASPIRIN 81 MG CHEW TAB PO ONE (17:15)
[2019-09-13] MEDS ORDERED: MAGNESIUM SULFATE 2GM/50ML 50 ML IV ONE (17:15)
[2019-09-13] MEDS ORDERED: FUROSEMIDE INJ 10 MG/ML 4 ML VIAL ONE (17:56)
[2019-09-13] MEDS ORDERED: FUROSEMIDE INJ 100 MG in SODIUM CHLORIDE 0.9% 100 ML 90 ML IV SCH (18:00)
[2019-09-13] MEDS ORDERED: POTASSIUM CHLORIDE 20MEQ/100ML 200 ML IV ONE (18:15)
[2019-09-13] MEDS ORDERED: AMIODARONE HCL 150 MG in DEXTROSE 5% 100ML 100 ML IV ONE (18:45)
[2019-09-13] MEDS ORDERED: AMIODARONE HCL 900 MG in DEXTROSE 5% 500ML 500 ML IV SCH (18:45)
--- NOTE | 2019-09-13 18:45 | NUR ---
LATE ENTRY: PATIENT HAD MULTIPLE RUNS OF VTACH. NOTIFIED. LABS OBTAINED AND GIVEN TO MD. THEN VTACH BECAME SUSTAINED AT APPROXIMATELY 1700. LIFE VEST ON AND SHOCKING PATIENT. VEST STATING "DO NOT TOUCH PATIENT" WILDLAND FIRE FIGHTER SPECIALIST CALLED DURING THIS TIME. PT LETHARGIC AFTER EPISODE. DR. GALLEGO AT BEDSIDE. NEW ORDERS RECEIVED AND PLACED. SOON AFTER PT BEGAN WITH RUNS OF VTACH THEN SUSTAINED WITH THE VEST. DR. GALLEGO AT BEDSIDE. PT RECOVERED AFTER EPISODES BACK TO BASELINE. AMIODARONE AND LASIX GTTS INITIATED. VTACH 200'S
--- NOTE | 2019-09-13 18:47 | Diagnostic Imaging Report ---
Examination: Single AP view of the chest. COMPARISON: None. INDICATION: Line placement DISCUSSION: Lines/tubes: Right IJ catheter with tip overlying the high right atrium. Lungs: Stable multifocal airspace consolidations and effusions. Pulmonary venous congestion. Heart and mediastinum: The heart and the mediastinum are unremarkable. Bones and soft tissues: No acute bony abnormalities. IMPRESSION: 1. Right IJ catheter with tip overlying the right atrium Signed by: Dr. Bernabe Miles M.D. on 09/13/2019 6:43 PM
[2019-09-13] MEDS ORDERED: AMIODARONE HCL 900 MG in DEXTROSE 5 % 500ML BOTTLE 500 ML IV ONE (19:00)
--- NOTE | 2019-09-13 19:17 | Progress Note ---
DATE: 09/13/2019 Cardiology Progress Note SUBJECTIVE: The patient feeling very short of breath with chest pain. The patient had a ventricular tachycardia episode where she was shocked by her LifeVest. OBJECTIVE: VITAL SIGNS: Temperature is 98.5, heart rate is 102, respirations are 24, blood pressure is 144/70, and oxygen saturation is 100% on non-rebreather. GENERAL: She is a well-appearing woman, in respiratory distress. CARDIOVASCULAR: Tachycardic. Regular rhythm with ectopy. LUNGS: Diminished breath sounds with rales. ABDOMEN: Distended, soft, nontender. EXTREMITIES: 2+ pitting edema. CARDIOVASCULAR MEDICATIONS: Reviewed. LABORATORY DATA: Reviewed. Hemoglobin is 10.7. Creatinine is 2.01, potassium 3.4, magnesium 1.9. Telemetry monitoring revealed ventricular tachycardia, which resolved with one shock from her LifeVest. IMPRESSION: 1. Msmtk-mj-fzuaobj systolic congestive heart failure. 2. Ventricular tachycardia. 3. Ischemic cardiomyopathy. 4. Coronary artery disease, status post percutaneous coronary intervention. 5. Pulmonary edema. 6. Alroq-ew-geowzvs kidney disease. 7. Hypertension. 8. Hyperlipidemia. 9. Diabetes mellitus. 10. Cerebrovascular accident. RECOMMENDATIONS: The patient had ventricular tachycardia with decline in her respiratory status. We will start amiodarone infusion. Start Lasix drip at 5 mg. Continue monitor creatinine and daily labs. Continue monitor in ICU. We will avoid dobutamine at this point in time given ventricular tachycardia. Also Milrinone should be avoided given elevated creatinine. I would like to perform a right and left heart catheterization to evaluate filling pressures. Jordan Tejeda DO BM/MODL /[id number]
--- NOTE | 2019-09-13 20:14 | NUR ---
right ij cvc placed by lewis pierre. emergent at bedside. pt in vtach hr 220's. pt okay with line placement. per dr. fischer okay to use cvc line. xray obtained for placement. family at bedside and updated with recent events of this evening.
[2019-09-13] MEDS: INSULIN GLARGINE 100 UNITS/ML VIAL SQ SCH (21:00)
[2019-09-13] MEDS: ATORVASTATIN 40 MG TAB PO SCH (21:51)
--- NOTE | 2019-09-13 22:44 | NUR ---
Notified Dr. Keita of urine output of 30 cc in past 2 hours and that patient is on Lasix gtt. MD stated to continue Lasix gtt and gave orders for AM labs. MD stated he will discuss with patient and family tomorrow the possibility of dialysis.
[2019-09-14] VITALS (26 sets, daily range): BP systolic 85–119; BP diastolic 41–104
[2019-09-14] MEDS: MELATONIN 5 MG TABLET PO PRN (00:30)
[2019-09-14 04:49] LABS: BASOPHILS % 0.3 % (0.0-1.0); EOSINOPHILS % 0.3 % (0.0-6.0); HEMATOCRIT 32.3 % (34.2-44.1); LYMPHOCYTES # (AUTO) 1.1 (1.0-3.2); LYMPHOCYTES % 11.4 % (18.0-39.1); MEAN CORPUSCULAR HEMOGLOBIN 28.6 pg (28-32); MEAN CORPUSCULAR VOLUME 92.3 fL (81-99); MONOCYTES # (AUTO) 0.7 (0.2-0.8); MONOCYTES % 7.3 % (4.4-11.3); NEUTROPHILS # (AUTO) 7.6 (2.1-6.9); NEUTROPHILS % 80.3 % (38.7-80.0); PLATELET COUNT 216 x10e3/uL (140-360); RED CELL DISTRIBUTION WIDTH 13.5 % (11.7-14.4)
[2019-09-14 05:21] LABS: ALBUMIN 2.4 g/dL (3.5-5.0); ALBUMIN/GLOBULIN RATIO 0.6 (0.8-2.0); ANION GAP 18.2 mmol/L (8-16); CALCIUM 9.3 mg/dL (8.4-10.2); CREATININE, SERUM 2.43 mg/dL (0.57-1.11); PHOSPHORUS 3.3 MG/DL (2.3-4.7); POTASSIUM 4.2 mmol/L (3.5-5.1)
[2019-09-14 05:47] LABS: MAGNESIUM 4.4 MG/DL (1.3-2.1)
[2019-09-14 06:53] LABS: BASOPHILS % 0.2 % (0.0-1.0); EOSINOPHILS # (AUTO) 0.1 (0.0-0.4); EOSINOPHILS % 0.6 % (0.0-6.0); HEMATOCRIT 32.7 % (34.2-44.1); HEMOGLOBIN 10.3 g/dL (12.0-16.0); LYMPHOCYTES # (AUTO) 1.1 (1.0-3.2); LYMPHOCYTES % 12.7 % (18.0-39.1); MEAN CORPUSCULAR HEMOGLOBIN 28.9 pg (28-32); MEAN CORPUSCULAR HGB CONC 31.5 g/dL (31-35); MEAN CORPUSCULAR VOLUME 91.9 fL (81-99); MONOCYTES # (AUTO) 0.7 (0.2-0.8); MONOCYTES % 7.5 % (4.4-11.3); NEUTROPHILS % 78.6 % (38.7-80.0); PLATELET COUNT 211 x10e3/uL (140-360); RED BLOOD COUNT 3.56 x10e6/uL (3.6-5.1); RED CELL DISTRIBUTION WIDTH 13.4 % (11.7-14.4)
[2019-09-14 07:21] LABS: ALBUMIN 2.4 g/dL (3.5-5.0); ALBUMIN/GLOBULIN RATIO 0.5 (0.8-2.0); ANION GAP 17.2 mmol/L (8-16); CALCIUM 9.3 mg/dL (8.4-10.2); CREATININE, SERUM 2.18 mg/dL (0.57-1.11); MAGNESIUM 2.5 MG/DL (1.3-2.1); POTASSIUM 4.2 mmol/L (3.5-5.1)
[2019-09-14] MEDS: INSULIN LISPRO 100 UNIT/1 ML 3ML VIAL SQ SCH ×4 (07:30→22:49)
[2019-09-14] MEDS: METOCLOPRAMIDE HCL 10 MG TAB PO SCH ×3 (08:00→17:00)
[2019-09-14] MEDS: CARVEDILOL 12.5 MG TAB PO SCH ×2 (08:57→17:00)
--- NOTE | 2019-09-14 08:58 | NUR ---
PER CARDIOLOGY, OKAY TO GIVE ASA AND BRILANTA THIS MORNING. HOLD COREG
[2019-09-14] MEDS: FUROSEMIDE INJ 100 MG in SODIUM CHLORIDE 0.9% 100 ML 90 ML IV SCH ×2 (09:15→19:30)
--- NOTE | 2019-09-14 09:20 | NUR ---
ASSESSMENT: Spiritual concern Pt "surprised" by sudden change in illness. Pt's daughter at bedside. Pt hopeful for improvement in health. Intervention: Provided empathic listening. Facilitated illness review. Provided prayer and reminded pt of availability of hog worker, Outcome: Will continue to follow. SUSHMA URENA Manufacturing Systems Engineer Spiritual Care Department O: [phone] Pager: [phone] ([phone] number calling from)
[2019-09-14] MEDS: ASPIRIN 81 MG CHEW TAB PO SCH (09:31)
[2019-09-14] MEDS: PANTOPRAZOLE 40 MG 10ML VIAL IV SCH ×2 (09:31→18:00)
[2019-09-14] MEDS: TICAGRELOR 90 MG TABLET PO SCH ×2 (09:31→22:10)
--- NOTE | 2019-09-14 11:00 | Diagnostic Imaging Report ---
EXAMINATION: CHEST SINGLE (PORTABLE) INDICATION: Shortness of breath COMPARISON: Multiple prior chest radiograph, most recently of 09/13/2019 FINDINGS: LINES/TUBES:Right IJ central venous catheter terminates at the superior cavoatrial junction. LUNGS:The lung volumes remain low. Again seen and slightly increased from the prior radiograph of 09/13/2019 are multifocal airspace opacities involving the left mid to upper lung zone and both lung bases. PLEURA:Small bilateral pleural effusions. No pneumothorax. MEDIASTINUM:The cardiomediastinal silhouette appears unchanged in size and shape. BONES/SOFT TISSUES:No acute osseous injury. ABDOMEN:No free air under the diaphragm. IMPRESSION: Slight interval increase in multifocal patchy opacities concerning for aspiration and/or pneumonia. Unchanged small bilateral pleural effusions. Signed by: Chau Dorman MD on 09/14/2019 10:57 AM
--- NOTE | 2019-09-14 13:44 | NUR ---
Nutrition Screen Note RD Recommendation for Physician: - Recommend adding low sodium diet restriction, fluid restriction per MD Plan of Care: RD following, monitoring for tolerance and adequacy Nutrition reason for involvement: follow up Primary Diagnose(s): CHF PMH: DM2, CVA, STEMI, HTN, HLD, CHF Ht: 62 in Wt: 167 lb BMI: 30.5 kg/m2 IBW: [address] Assessment: 09/14: Follow up. Pt transferred to ICU 2/2 SOB and v-tach, received shock from LifeVest. Appetite and intake improving, 50-100% of meals recently. No GI distress, LBM 09/14. Chart reviewed. Labs and meds noted. Skin intact. Will monitor and continue to follow. (09/07) 64 YOF admitted for CHF, seen today per dx screen. Pt recently D/C'd from hospital last week for CVA, STEMI, and CHF with extensive diet education provided to pt and daughter x 3. Pt reports decreased appetite currently, c/o SOB- currently on O2 per nasal canula. Noted significant wt/fluid gain from wt of 67.2 kg kg last week. Reviewed Na diet and fluid restriction with pt, reports good compliance at home. Pt denies GI distress. All questions and concerns addressed at time of visit. Chart reviewed. Labs and meds reviewed. Will monitor and continue to follow. Current Diet: 1800 ADA Malnutrition Evaluation (09/07/19) The patient does not meet criteria for a specified degree of malnutrition at this time. Will re-evaluate at follow-up as appropriate. Diet Education Needs Assessment: Diet education indicated, reviewed Na and fluid restriction. 09/07 Diet tolerance: tolerating po Nutrition Care Level: low Signed: Molly Tirado RD, LD, [facility]
--- NOTE | 2019-09-14 14:02 | Progress Note ---
DATE: 09/14/2019 Medicine Progress Note SUBJECTIVE: The patient yesterday ended up having sustained ventricular tachycardia requiring transfer to the ICU. Initially, the patient was being transferred to start on a dopamine drip as well as Lasix drip. While in the ICU, the patient developed sustained ventricular tachycardia requiring amiodarone drip. The broadband technician was present when this occurred. She had two episodes of sustained ventricular tachycardia. She had a central line placed by Cardiology. She was started on amiodarone drip as well as Lasix drip. She is currently anuric. She is alert, awake, talking to me with no issues. Daughter was at bedside with no issues at this time. I had a long discussion with her about the need for hemodialysis and also ultrafiltration and she has agreed to a dialysis catheter initiation of hemodialysis later today with increased ultrafiltration. I feel that this is all temporary in nature and does not need to be long-term dialysis. PHYSICAL EXAMINATION: VITAL SIGNS: Temperature is 98.3, pulse 76, respiratory rate is 23, blood pressure 109/59, pulse ox is 100% on 2 L nasal cannula. GENERAL: Not in acute distress, alert and oriented x3, cooperative on examination. HEENT: Head is normocephalic and atraumatic. Eyes; pupils are equal, round, and reactive to light bilaterally. Extraocular movements intact bilaterally. Throat; no evidence of erythema or exudates in the posterior pharynx. Has poor dentition. NECK: Supple. Good range of motion. PULMONARY: Clear to auscultation bilaterally. No wheezing, no rales, no rhonchi, no crackles appreciated. CARDIOVASCULAR: Positive S1, S2. No murmurs, rubs, or gallops appreciated. ABDOMEN: Soft, nondistended, and nontender to palpation. Bowel sounds present. MUSCULOSKELETAL: Strength is 5/5 throughout. No evidence of any muscle deficits on examination. No weakness appreciated. NEUROLOGICAL: Cranial nerves II through XII grossly intact. No evidence of any neurological deficits on exam. SKIN: Intact. Warm to touch. Good cap refill. PSYCHIATRIC: Normal affect and mood. EXTREMITIES: No edema. Good range of motion throughout. LABORATORY FINDINGS: Show white count 8.9, hemoglobin 10.3, hematocrit is 33, platelets of 211. Chemistry; sodium 141, potassium is 4.2, chloride 103, bicarb 25, anion gap of 17, BUN is 29, creatinine is 2.1, glucose 169, calcium 9.3, magnesium 2.5. LFTs normal. Alkaline phosphatase 159, albumin 2.4. Urinalysis noted. MICROBIOLOGY: Blood cultures negative. Urine culture negative. IMAGING STUDIES: Chest x-ray, slight interval increase in the multifocal patchy opacities concerning for aspiration and/or pneumonia. There is some evidence of small bilateral pleural effusion. IMPRESSION: 1. Acute exacerbation of congestive heart failure with systolic dysfunction with a LifeVest. 2. Sustained ventricular tachycardia with the LifeVest, triggering x2 yesterday, 09/13/2019. 3. Recent diagnosis of a cerebrovascular accident. 4. Hypertension. 5. Recent ST-elevation myocardial infarction, status post PCI earlier this month, August 2019. 6. Hyperlipidemia. 7. Healthcare associated pneumonia. 8. Urinary retention. We will continue with Turk on discharge. 9. Acute kidney injury secondary from hypotension and underlying diuretic. 10. Hypoxia requiring increased diuresis. PLAN: At this time, the patient had sustained ventricular tachycardia yesterday. Her LifeVest went off twice. She received amiodarone, currently on Lasix drip at 10 mg/hour. She is making very little urine at this time, and her creatinine did slightly elevated. Her electrolytes are stable. I had a long discussion with the patient at bedside. I feel like that the patient's underlying renal function is slightly elevated from cardiorenal as well as underlying diuretics. The only best option for this patient to have increased ultrafiltration, to place a dialysis catheter and to do ultrafiltration and remove as much fluid as possible. It seems that every time we have on diuretics, the creatinine continues to go up and it will be very difficult for us to have adequate diuresis by holding the diuretics. She has agreed to the dialysis catheter, has agreed to dialysis. I have discussed this with Cardiology and Pulmonary and they agree with plan of care. She will get a dialysis temporary catheter placement today by IR and hopefully later today, we will have increased ultrafiltration with dialysis and see if this will help her breathe better. The only issue is that the patient have difficulty of lying flat and Radiology hopefully is able to place the catheter, but we will see what Radiology is able to do. We will get morning labs as well. Consultants are Urology, Cardiology, and Pulmonary, who are following. We will continue with same medications with no changes. Repeat labs in the morning. Monitor urine output very closely. Once again, I answered all the questions with the family, the patient, and the patient's daughter at bedside about hemodialysis in relation to risks versus benefits. They understand the risks and benefits involved with hemodialysis and have agreed to proceed with a dialysis catheter and to begin dialysis. I discussed with them that this is a temporary measure and not long-term and they verbalized understanding. MD SUKHJINDER Luna/MODL /[id number]
[2019-09-14] MEDS ORDERED: ETOMIDATE 2 MG/ML 10 ML INJ IV ONE (14:23)
[2019-09-14] MEDS ORDERED: LIDOCAINE HCL 1% LOCAL INJ 20 ML VIAL ONE (16:06)
--- NOTE | 2019-09-14 17:44 | Progress Note ---
DATE: 09/14/2019 Cardiology Progress Note SUBJECTIVE: The patient is feeling better than yesterday. Her shortness of breath is still present, however, has improved. She denies any chest pain. OBJECTIVE: VITAL SIGNS: Temperature is 98.3, heart rate is 81, respirations are 18, blood pressure is 109/59, oxygen saturation is 100% on 2 L nasal cannula. GENERAL: She is well-appearing woman, seated upright, in mild respiratory distress. CARDIOVASCULAR: Regular rate and rhythm. No murmurs. LUNGS: Scattered rales throughout all lung chavez. ABDOMEN: Soft, distended, nontender. EXTREMITIES: 2+ pitting edema. SKIN: Warm, dry, intact. CARDIOVASCULAR MEDICATIONS: Reviewed, include Lasix drip at 5 mg, which was then increased to 10 mg. LABORATORY DATA: Creatinine was 2.18, magnesium 2.5. Chest x-ray shows slight interval increase in multifocal patchy opacities. IMPRESSION: 1. Yrrzu-we-uqegavg systolic congestive heart failure. 2. Ventricular tachycardia. 3. Ischemic cardiomyopathy. 4. Coronary artery disease, status post percutaneous coronary intervention. 5. Pulmonary edema. 6. Acute on chronic kidney disease. 7. Hypertension. 8. Hyperlipidemia. 9. Diabetes mellitus. 10. History of cerebrovascular accident. RECOMMENDATIONS: The patient's creatinine continues to rise with low urine output despite a Lasix drip. Her pulmonary edema is increased. Agree with dialysis catheter placement for volume removal. Continue to monitor daily labs. No further ventricular tachycardia was noted. Continue LifeVest as she required defibrillation x2 yesterday. We will hold off on right and left heart catheterization at this point in time. Continue dual-antiplatelet therapy for her recent percutaneous coronary intervention. Jordan Tejeda DO BM/MODL /[id number]
[2019-09-14] MEDS ORDERED: AMIODARONE 900MG 500 ML IV ONE (18:02)
[2019-09-14] MEDS ORDERED: ALBUMIN 25% 12.5GM 0.25 GM/ML BTL IV PRN (18:30)
[2019-09-14] MEDS ORDERED: SODIUM CHLORIDE 0.9% 250ML 500 ML IV PRN (18:30)
[2019-09-14] MEDS ORDERED: SODIUM CHLORIDE 0.9% 1000ML 2,000 ML IV PRN (18:30)
[2019-09-14] MEDS ORDERED: MANNITOL 25% 12.5GM/50 ML VIAL IV PRN (18:30)
[2019-09-14] MEDS ORDERED: HEPARIN SOD (PORCINE) 1000 UNIT/ML SDV IV PRN (18:30)
--- NOTE | 2019-09-14 18:35 | Diagnostic Imaging Report ---
EXAMINATION: CHEST XRAY LINE PLACEMENT INDICATION: Congestive heart failure ^LINE PLACEMENT ^[id number] ^[id number] COMPARISON: 09/14/2018 FINDINGS: LINES/TUBES:Right IJ central venous catheter with distal tip over the low right heart. Metallic devices and leads overlie the lower chest and abdomen obscuring fine detail LUNGS:The lung volumes remain low. Again seen and essentially slightly worsened multifocal airspace opacities involving the left mid to upper lung zone and both lung bases. PLEURA:Small bilateral pleural effusions. No pneumothorax. MEDIASTINUM:The cardiomediastinal silhouette appears unchanged in size and shape. BONES/SOFT TISSUES:No acute osseous injury. ABDOMEN:No free air under the diaphragm. IMPRESSION: Right IJ central venous catheter with distal tip over the low right heart. Metallic devices and leads overlie the lower chest and abdomen obscuring fine detail Multiple focal patchy opacities concerning for aspiration and/or pneumonia. Unchanged small bilateral pleural effusions. Signed by: Dr. Daquan Valerio M.D. on 09/14/2019 6:31 PM
[2019-09-14] MEDS: ATORVASTATIN 40 MG TAB PO SCH (22:10)
[2019-09-14] MEDS: INSULIN GLARGINE 100 UNITS/ML VIAL SQ SCH (22:49)
[2019-09-14] MEDS: ALBUTEROL/IPRATROPIUM 3 ML NEB NEB PRN (23:45)
[2019-09-15] VITALS (24 sets, daily range): BP systolic 82–118; BP diastolic 47–83
[2019-09-15 05:05] LABS: BASOPHILS % 0.3 % (0.0-1.0); EOSINOPHILS % 0.3 % (0.0-6.0); HEMATOCRIT 29.9 % (34.2-44.1); HEMOGLOBIN 9.4 g/dL (12.0-16.0); LYMPHOCYTES # (AUTO) 0.9 (1.0-3.2); LYMPHOCYTES % 7.8 % (18.0-39.1); MEAN CORPUSCULAR HGB CONC 31.4 g/dL (31-35); MEAN CORPUSCULAR VOLUME 92.3 fL (81-99); MONOCYTES # (AUTO) 0.6 (0.2-0.8); MONOCYTES % 5.4 % (4.4-11.3); NEUTROPHILS # (AUTO) 10.1 (2.1-6.9); NEUTROPHILS % 85.8 % (38.7-80.0); PLATELET COUNT 117 x10e3/uL (140-360); RED BLOOD COUNT 3.24 x10e6/uL (3.6-5.1); RED CELL DISTRIBUTION WIDTH 13.2 % (11.7-14.4)
[2019-09-15] MEDS: FUROSEMIDE INJ 100 MG in SODIUM CHLORIDE 0.9% 100 ML 90 ML IV SCH (05:46)
[2019-09-15 05:49] LABS: ANION GAP 17.8 mmol/L (8-16); CALCIUM 8.5 mg/dL (8.4-10.2); CREATININE, SERUM 2.54 mg/dL (0.57-1.11); MAGNESIUM 2.3 MG/DL (1.3-2.1); PHOSPHORUS 3.6 MG/DL (2.3-4.7); POTASSIUM 3.8 mmol/L (3.5-5.1)
[2019-09-15] MEDS: PANTOPRAZOLE 40 MG 10ML VIAL IV SCH ×2 (08:02→16:12)
[2019-09-15] MEDS: METOCLOPRAMIDE HCL 10 MG TAB PO SCH ×3 (08:02→16:12)
[2019-09-15] MEDS: TICAGRELOR 90 MG TABLET PO SCH ×2 (08:02→21:51)
[2019-09-15] MEDS: ASPIRIN 81 MG CHEW TAB PO SCH (08:02)
[2019-09-15] MEDS: CARVEDILOL 12.5 MG TAB PO SCH ×2 (08:04→16:02)
[2019-09-15] MEDS: INSULIN LISPRO 100 UNIT/1 ML 3ML VIAL SQ SCH ×4 (08:07→21:54)
--- NOTE | 2019-09-15 08:52 | Diagnostic Imaging Report ---
PROCEDURE: Non-tunneled central venous catheter placement Procedural Personnel Attending physician(s): Chau Dorman MD Fellow physician(s): None Resident physician(s): None Advanced practice provider(s): None Pre-procedure diagnosis: Acute kidney injury Post-procedure diagnosis: Same Indication: Performance of hemodialysis Additional clinical history: None Complications: No immediate complications. IMPRESSION: Removal of indwelling right IJ central venous catheter and placement of right-sided non-tunneled triple-lumen temporary dialysis catheter. Plan: Immediate post-procedural chest radiograph to confirm positioning PROCEDURE SUMMARY: - Existing right IJ venous access. Right IJ evaluated to be patent by ultrasound. - Removal of indwelling small bore right IJ central venous catheter. - Non-tunneled central venous catheter insertion via existing access - Additional procedure(s): None PROCEDURE DETAILS: Pre-procedure Consent: Informed consent for the procedure including risks, benefits and alternatives was obtained and time-out was performed prior to the procedure. Preparation (MIPS): The site was prepared and draped using all elements of maximal sterile barrier technique including sterile gloves, sterile gown, cap, mask, large sterile sheet, sterile ultrasound probe cover, hand hygiene and cutaneous antisepsis with 2% chlorhexidine. Medical reason for site preparation exception (MIPS): Not applicable Anesthesia/sedation Level of anesthesia/sedation: No sedation Access Local anesthesia was administered. The vessel was sonographically evaluated and determined to be patent. The indwelling catheter was removed over a wire. Vein accessed: Internal jugular vein Access technique: Existing access Catheter placement The access site was dilated and the catheter was placed into the vein over a wire. A sterile dressing was applied. Catheter placed: Bard Trialysis Catheter size (Vietnamese): 13 Catheter length (cm): 15 Catheter flush: Normal saline Catheter securement technique: Non-absorbable suture Contrast Contrast agent: None Radiation Dose None. Ultrasound only. Additional Details Additional description of procedure: None Equipment details: None Specimens removed: None Estimated blood loss (mL): Less than 10 Standardized report: [email or web address] Attestation Signer name: Chau Dorman MD I attest that I was present for the entire procedure. I reviewed the stored images and agree with the report as written. Signed by: Chau Dorman MD on 09/15/2019 8:49 AM
[2019-09-15 09:30] LABS: PLATELET ESTIMATE SLIGHTLY DECREASED; PLATELET MORPHOLOGY COMMENT FEW LARGE
[2019-09-15 09:31] LABS: RBC MORPHOLOGY COMMENT NORMAL
[2019-09-15] MEDS: LORAZEPAM 0.5 MG TAB PO PRN ×2 (09:53→19:00)
--- NOTE | 2019-09-15 15:07 | NUR ---
PT DISCUSSED IN BARRIER ROUNDS ON O2 NECTAR THICK BUT NON COMPLIANT, IS INCONT, DIALYSIS , AND FRIDAYS, DOING 10 FT WITH PT AND 2 PERSON ASSIST, DENIAL WAS UPHELD AND APPEAL WAS FILED, SHOULD GET ANSWER FOR WEDNESDAY. Addendum: 09/15/19 at 1521 by Ann Marie Graves CM WRONG PT; INCORRECT INFORMATION ENTERED IN ERROR
--- NOTE | 2019-09-15 15:21 | NUR ---
DISCUSSED IN BARRIER ROUNDS PT ON ALISHA RAY YESTERDAY, AND TODAY CONTINUE CARE, SHOCKED 2 TIMES BY VEST, LEFT ADVANCED DIRECTIVE BY BEDSIDE FOR FAMILY.
[2019-09-15] MEDS ORDERED: SODIUM CHLORIDE 0.9% 250ML 500 ML IV PRN (15:30)
[2019-09-15] MEDS ORDERED: ALBUMIN 25% 12.5GM 0.25 GM/ML BTL IV PRN (15:30)
[2019-09-15] MEDS ORDERED: HEPARIN SOD (PORCINE) 1000 UNIT/ML SDV IV PRN (15:30)
[2019-09-15] MEDS ORDERED: MANNITOL 25% 12.5GM/50 ML VIAL IV PRN (15:30)
[2019-09-15] MEDS ORDERED: SODIUM CHLORIDE 0.9% 1000ML 2,000 ML IV PRN (15:30)
--- NOTE | 2019-09-15 15:43 | Progress Note ---
DATE: 09/15/2019 Medicine Progress Note SUBJECTIVE: The patient had pure ultrafiltration yesterday with 2 liters removed. She states feeling a little better. She is scheduled for pure ultrafiltration later today for 3 liters and scheduled dialysis tomorrow. No overnight events. PHYSICAL EXAMINATION: VITAL SIGNS: Temperature is 98, pulse 74, respiratory rate is 23, blood pressure 108/57, and pulse ox 99%. She is on 3 liters nasal cannula now. GENERAL: Not in acute distress. Alert and oriented x3. Cooperative on examination. HEENT: Head, normocephalic and atraumatic. Eyes, pupils are equal, round, and reactive to light bilaterally. Extraocular movements are intact bilaterally. Throat, no evidence of erythema or exudates in the posterior pharynx. Has poor dentition. NECK: Supple. Good range of motion. PULMONARY: Clear to auscultation bilaterally. No wheezing, no rales, no rhonchi, and no crackles appreciated. CARDIOVASCULAR: Positive S1 and S2. No murmurs, rubs, or gallops appreciated. ABDOMEN: Soft, nondistended, and nontender to palpation. Bowel sounds present. MUSCULOSKELETAL: Strength is 5/5 throughout. No evidence of any muscle deficits on examination. No weakness appreciated. NEUROLOGIC: Cranial nerves II through XII grossly intact. No evidence of any neurological deficits on exam. SKIN: Intact. Warm to touch. Good cap refill. PSYCHIATRIC: Normal affect and mood. EXTREMITIES: No edema. Good range of motion throughout. LABORATORY DATA: White count 11.7, hemoglobin 9.4, hematocrit is 29, and platelets of 117. Chemistry; sodium 138, potassium 3.8, chloride 101, bicarb 23, anion gap of 17, BUN is 33, creatinine is 2.54, glucose is 214, calcium 8.5, phosphorus is 3.6, and magnesium is 2.3. IMPRESSION: 1. Acute exacerbation of congestive heart failure with systolic dysfunction. Ejection fraction of less than 20% with a LifeVest. 2. Sustained ventricular tachycardia with LifeVest triggering x2 on 09/13/2019. 3. Recent diagnosis of cerebrovascular accident. 4. Hypertension. 5. Recent ST-elevation myocardial infarction, status post percutaneous coronary intervention in early August 2019. 6. Hyperlipidemia. 7. Healthcare-associated pneumonia. 8. Urinary retention - we will continue with Turk on discharge. 9. Acute kidney injury secondary from hypertension and underlying diuretics, likely acute kidney injury. 10. Hypoxia, still on 3 liters nasal cannula. PLAN: At this time, the patient had pure ultrafiltration yesterday with 2 liters removed. She will have pure ultrafiltration today with 3 liters and get dialysis in the morning. I have already talked to the dialysis nurse about that as well. We will continue with amiodarone drip and Lasix drip as well. Continue with anti-platelet therapy including Brilinta and statins. As for her hypertension, her blood pressure is a little on the low side, we will monitor that very closely. Cardiology is following as well. Pulmonary is following as well. She will continue with the Turk upon discharge. She will get hemodialysis. I do see some recovery in her renal function as her urine output has increased a little bit. We will get hemodialysis tomorrow as well. We will try to wean her off oxygen as we will continue to do pure ultrafiltration and dialysis daily. I had a long discussion with the patient at bedside and I discussed overall findings and the plan of care with the patient and the patient's daughter at bedside with the nurse present throughout the entire conversation and she verbalized understanding. We will continue to follow with the consultants; Urology, Cardiology, and Pulmonary. We will get a.m. labs. MD SUKHJINDER Luna/KAITLYNNL /[id number]
[2019-09-15] MEDS ORDERED: PROMETHAZINE 25MG/SOD CHL 0.9% 50 ML IV PRN (16:30)
[2019-09-15] MEDS: ATORVASTATIN 40 MG TAB PO SCH (21:51)
[2019-09-15] MEDS: INSULIN GLARGINE 100 UNITS/ML VIAL SQ SCH (21:55)
--- NOTE | 2019-09-15 22:25 | Progress Note ---
DATE: 09/15/2019 Cardiology Progress Note SUBJECTIVE: The patient denies chest pain or shortness of breath next. OBJECTIVE: VITAL SIGNS: Temperature 97.9 degrees, pulse 71, respiratory rate 16, blood pressure 92/47, and oxygen saturation 98% on 5 L nasal cannula. GENERAL: Awake, alert, in no acute distress. LUNGS: Clear to auscultation bilaterally. No wheezes or crackles. CARDIAC: Normal rate and regular rhythm. No murmur. Normal S1 and S2. ABDOMEN: Soft and nontender. EXTREMITIES: 2+ pitting edema. CARDIAC MEDICATIONS: Aspirin 81 mg p.o. daily, atorvastatin 80 mg p.o. at bedtime, and metoprolol 25 mg p.o. b.i.d. LABORATORY DATA: WBC 11.79, hemoglobin 9.4, hematocrit 29.9, and platelets 117. Sodium 138, potassium 3.8, chloride 101, CO2 of 23, BUN 33, and creatinine 2.54. TELEMETRY: Normal sinus rhythm. IMPRESSION: 1. Whxyy-ee-edfgbuv systolic heart failure. 2. Ventricular tachycardia. 3. Ischemic cardiomyopathy. 4. Coronary artery disease status post percutaneous coronary intervention. 5. Pulmonary edema. 6. Acute on chronic kidney disease. 7. Hypertension. 8. Hyperlipidemia. 9. Diabetes mellitus. 10. History of cerebrovascular accident. RECOMMENDATIONS: Continued volume management per Nephrology. Plan for further ultrafiltration today. Continue current cardiac medications. Monitor the patient closely on telemetry. Continue the patient on LifeVest given need for defibrillation. She will need coronary angiogram once her renal function improves. Continue current cardiac medications including dual antiplatelet therapy given her very recent stent. Thank you for this consult. We will continue to follow. Litzy Singh MD ABS/MODL /[id number]
[2019-09-16] VITALS (25 sets, daily range): BP systolic 83–121; BP diastolic 48–99
[2019-09-16] MEDS: MELATONIN 3 MG TAB PO PRN (01:11)
[2019-09-16] MEDS ORDERED: AMIODARONE HCL 900 MG in DEXTROSE 5% 500ML 500 ML IV SCH (03:00)
[2019-09-16] MEDS ORDERED: AMIODARONE 900MG 500 ML IV SCH (03:00)
[2019-09-16] MEDS ORDERED: AMIODARONE 900MG 500 ML IV ONE (03:00)
[2019-09-16 05:37] LABS: BASOPHILS % 0.2 % (0.0-1.0); EOSINOPHILS # (AUTO) 0.2 (0.0-0.4); EOSINOPHILS % 2.6 % (0.0-6.0); HEMATOCRIT 30.2 % (34.2-44.1); HEMOGLOBIN 9.6 g/dL (12.0-16.0); LYMPHOCYTES # (AUTO) 0.9 (1.0-3.2); LYMPHOCYTES % 10.5 % (18.0-39.1); MEAN CORPUSCULAR HEMOGLOBIN 28.8 pg (28-32); MEAN CORPUSCULAR HGB CONC 31.8 g/dL (31-35); MEAN CORPUSCULAR VOLUME 90.7 fL (81-99); MONOCYTES # (AUTO) 0.6 (0.2-0.8); MONOCYTES % 6.9 % (4.4-11.3); NEUTROPHILS % 79.6 % (38.7-80.0); PLATELET COUNT 72 x10e3/uL (140-360); RED BLOOD COUNT 3.33 x10e6/uL (3.6-5.1); RED CELL DISTRIBUTION WIDTH 13.2 % (11.7-14.4)
[2019-09-16 05:51] LABS: ALBUMIN 2.8 g/dL (3.5-5.0); ALBUMIN/GLOBULIN RATIO 0.7 (0.8-2.0); ANION GAP 16.7 mmol/L (8-16); CALCIUM 8.6 mg/dL (8.4-10.2); CREATININE, SERUM 2.89 mg/dL (0.57-1.11); POTASSIUM 3.7 mmol/L (3.5-5.1)
[2019-09-16] MEDS: INSULIN LISPRO 100 UNIT/1 ML 3ML VIAL SQ SCH ×4 (08:22→20:47)
[2019-09-16] MEDS: TICAGRELOR 90 MG TABLET PO SCH ×2 (09:47→20:47)
[2019-09-16] MEDS: PANTOPRAZOLE 40 MG 10ML VIAL IV SCH ×2 (09:47→17:16)
[2019-09-16] MEDS: METOCLOPRAMIDE HCL 10 MG TAB PO SCH ×3 (09:47→17:16)
[2019-09-16] MEDS: ASPIRIN 81 MG CHEW TAB PO SCH (09:47)
[2019-09-16] MEDS: CARVEDILOL 12.5 MG TAB PO SCH ×2 (09:47→17:00)
[2019-09-16] MEDS: LORAZEPAM 0.5 MG TAB PO PRN (11:29)
[2019-09-16] MEDS ORDERED: SODIUM CHLORIDE 0.9% 1000ML 2,000 ML ONE (11:48)
--- NOTE | 2019-09-16 12:08 | Progress Note ---
DATE: 09/16/2019 Cardiology Progress Note SUBJECTIVE: The patient is without any new complaints this morning. She states that she feels much better. Denies any chest pain, shortness of breath or palpitations. CARDIOVASCULAR MEDICATIONS: Carvedilol 6.25 mg p.o. b.i.d., aspirin 81 mg p.o. daily, atorvastatin 80 mg p.o. at bedtime, amiodarone IV titrate. LABORATORY DATA: WBC 8.74, hemoglobin 9.6, hematocrit 30.2, platelets 72. Sodium 136, potassium 3.7, BUN 43, creatinine 2.89, GFR 16, glucose 130, alkaline phosphatase 154. TELEMETRY: Normal sinus rhythm. OBJECTIVE: VITAL SIGNS: Temperature 98.2, pulse 76, respiratory rate 18, blood pressure 121/69, oxygen saturation 99% on 3 L nasal cannula. GENERAL: Alert and oriented x3. Resting on the side of the bed. Does not appear to be in any acute distress. at the bedside. NECK: Supple. No JVD noted. LUNGS: Clear to auscultation throughout. No wheezing, no rhonchi or crackles. CARDIOVASCULAR: Normal rate and rhythm. Normal S1 and S2. No murmurs. No gallops. ABDOMEN: Soft, nontender. EXTREMITIES: Lower extremities, trace edema bilaterally. IMPRESSION: 1. Acute on chronic systolic heart failure. 2. Ventricular tachycardia. 3. Ischemic cardiomyopathy. 4. Coronary artery disease status post PCI. 5. Pulmonary edema. 6. Acute on chronic kidney disease, on hemodialysis. 7. Hypertension. 8. Hyperlipidemia. 9. Diabetes mellitus. 10. History of CVA. RECOMMENDATIONS: Continue volume management per Nephrology. Continue ultrafiltration today. Continue the above-listed cardiac medication. Continue to monitor the patient on telemetry. Transition from IV amiodarone to oral. Continue to wear a LifeVest given need for defibrillation. When her renal function improves, she will require coronary angiogram. We will plan on this likely next week. Continue dual anti-platelet therapy given recent stent. Thank you for this consult. We will continue to follow this patient closely. Dictated by Anna Marie Sarabia NP MD KELSEY Muniz/MODL /[id number]
--- NOTE | 2019-09-16 14:24 | NUR ---
Consult called to Dr Sarkar.
--- NOTE | 2019-09-16 16:19 | Progress Note ---
DATE: 09/16/2019 Medicine Progress Note SUBJECTIVE: The patient is receiving hemodialysis today. She states she is breathing much better today. Our goal is to get an additional 3 L ultrafiltration on HD. OBJECTIVE: VITAL SIGNS: Temperature is 98.5, pulse 76, respiratory rate is 18, blood pressure 121/69, pulse ox 99% on nasal cannula. GENERAL: No acute distress. Alert and oriented x3. Cooperative on examination. HEENT: Head is normocephalic and atraumatic. Eyes; pupils are equal, round, and reactive to light bilaterally. Extraocular movements are intact bilaterally. Throat; no evidence of erythema or exudates in the posterior pharynx. Has poor dentition. NECK: Supple. Good range of motion PULMONARY: Clear to auscultation bilaterally. No wheezing, no rales, no rhonchi, no crackles appreciated. CARDIOVASCULAR: Positive S1 and S2. No murmurs, rubs, or gallops appreciated. ABDOMEN: Soft, nondistended, and nontender to palpation. Bowel sounds present. MUSCULOSKELETAL: Strength is 5/5 throughout. No evidence of any muscle deficits on examination. No weakness appreciated. NEUROLOGIC: Cranial nerve II through XII grossly intact. No evidence of any neurological deficits on exam. SKIN: Intact. Warm to touch. Good cap refill. PSYCHIATRIC: Normal affect and mood. EXTREMITIES: No edema. Good range of motion throughout. LABORATORY FINDINGS: Show white count 8.7, hemoglobin 9.6, hematocrit is 30, platelets of 72. Coagulation, PT 13, INR 1, PTT 31. Chemistry; sodium 136, potassium 3.7, chloride 101, bicarb 23, anion gap of 16, BUN 43, creatinine is 2.89, glucose is 130, calcium is 8.6. Total bilirubin is 0.6, AST 20, ALT 37, alkaline phosphatase is 154, albumin is 2.8. Urinalysis, none. MICROBIOLOGY: None. IMAGING: None. IMPRESSION: 1. Acute exacerbation of congestive heart failure with systolic dysfunction with an EF of 20% on the LifeVest. 2. Nonsustained ventricular tachycardia with LifeVest triggering x2 on 09/13/2019. 3. Recent diagnosis of cerebrovascular accident. 4. Hypertension. 5. Recent ST-elevation myocardial infarction, status post percutaneous coronary intervention in early August 2019. 6. Hyperlipidemia. 7. Healthcare-associated pneumonia. 8. Urinary retention - we will continue with Turk on discharge. 9. Acute kidney injury secondary to hypertension, acute tubular necrosis. 10. Hypoxia, improving. 11. Thrombocytopenia. PLAN: At this time, she is receiving hemodialysis with 3 L ultrafiltration as tolerated. We are going to give her break tomorrow, start dialysis on Wednesday again and try to do increased ultrafiltration. I discussed this with the patient and the daughter at bedside and they verbalized understanding. We will continue with anti-platelet therapy and cardioprotective medications as per Cardiology. Her blood pressure is on the lower end. We will monitor that very closely. Pulmonary is following in terms of her respiratory status. She does have home oxygen arranged. She does have some thrombocytopenia. I am not sure of the etiology. I will go ahead and get the Hematology consultation. We will follow with all the consultants including Urology, Cardiology, Pulmonary, and Hematology. The patient is not ready for discharge at this time. Once we were able to wean her off oxygen if possible and remove increased ultrafiltration during dialysis and she is breathing better and ambulating better, then the patient be ready for discharge to home. She is currently not ready for discharge at this time. MD SUKHJINDER Luna/ELVIRA /[id number]
[2019-09-16] MEDS: AMIODARONE HCL 200 MG TAB PO SCH (17:16)
[2019-09-16 17:21] LABS: RETICULOCYTE % 1.9 % (0.8-2.2)
[2019-09-16 17:32] LABS: INR 1.09; PROTHROMBIN TIME 14.6 seconds (11.9-14.5)
[2019-09-16 17:33] LABS: PARTIAL THROMBOPLASTIN TIME 29.2 seconds (23.8-35.5)
[2019-09-16 18:07] LABS: FERRITIN 224.55 ng/mL (4.63-204.00)
--- NOTE | 2019-09-16 19:00 | NUR ---
Report received. Assumed care. Assessment done. See interventions.
[2019-09-16] MEDS: ATORVASTATIN 40 MG TAB PO SCH (20:47)
[2019-09-16] MEDS: INSULIN GLARGINE 100 UNITS/ML VIAL SQ SCH (20:55)
--- NOTE | 2019-09-16 23:32 | Consultation ---
DATE OF CONSULTATION: 09/16/2019 REQUESTING PHYSICIAN: Dwayne Keita MD. CONSULTING PHYSICIAN: Yolis Sarkar MD, Hematology and Oncology Service. REASON FOR CONSULTATION: Evaluation and management of patient with thrombocytopenia. HISTORY OF PRESENTING ILLNESS: Ms. Hoyos is a very pleasant 64-year-old female with known history of hypertension, diabetes mellitus, history of middle cerebral artery stroke, congestive heart failure and coronary artery disease, admitted to the hospital due to progressive shortness of breath and congestive heart failure exacerbation. Workup revealed respiratory failure secondary to pulmonary edema. The patient was started on IV diuretics. She was seen and evaluated by Cardiology as well as Nephrology. She was also noted to have sustained ventricular tachycardia that triggered LifeVest on September 13. Of note, the patient has a recent ST-elevation TN requiring percutaneous intervention in early August. Now Hematology-Oncology has been consulted due to worsening thrombocytopenia. Presently, the patient is sitting comfortably not in acute distress. She is getting dialysis. She is going to be transferred to the floor. PAST MEDICAL HISTORY: 1. Hypertension. 2. Hyperlipidemia. 3. Coronary artery disease, status post ST-elevation TN requiring PCI to the LAD in early August. 4. Type 2 diabetes mellitus. 5. Congestive heart failure with ejection fraction 20%-30%. 6. History of left MCA infarction. PAST SURGICAL HISTORY: Related to left heart catheterization. FAMILY HISTORY: Positive for diabetes and hypertension. SOCIAL HISTORY: No reported history of alcohol use, illicit drug use or history of smoking. She is , has children. ALLERGIES: NO KNOWN DRUG ALLERGIES. CURRENT MEDICATIONS: Reviewed as per electronic medical record. REVIEW OF SYSTEMS: A 14-point review of systems negative except as mentioned per history of presenting illness. PHYSICAL EXAMINATION: VITAL SIGNS: Reviewed as per electronic medical record. HEENT: PERRLA. Extraocular movements are intact. Head is atraumatic and normocephalic. NECK: Supple. CVS: S1, S2 audible. RESPIRATORY: Decreased bilateral air entry. ABDOMEN: Soft. Positive bowel sounds. EXTREMITIES: Negative cyanosis. NEURO: The patient is alert and awake. LABORATORY DATA: White blood cell count of 8.7, hemoglobin 9.6, hematocrit 30.2, platelets 72, BUN 43, creatinine 2.8. ASSESSMENT AND PLAN: Ms. Hoyos is a very pleasant 64-year-old female with multiple medical problems including known history of hypertension, hyperlipidemia, diabetes mellitus, and recent history of ST-elevation TN requiring cardiac catheterization and PCI. During recent hospitalization, she also developed a left middle cerebral artery infarction. Apparently, she was discharged on antiplatelet therapy and now readmitted due to acute on chronic CHF. She was treated with IV diuretics. She was noted to have a significant drop in platelet count. Subsequently, Hematology-Oncology has been consulted to assist with the management. I have reviewed the records and discussed at length with the patient about her current disease and importance of further workup. Cause of the acute thrombocytopenia, which is very significant as she has a more than 50% drop is very concerning. The patient has been exposed to heparin. At this point, I will get baseline workup including heparin-induced thrombocytopenia antibody panel. I will also get workup for the anemia as patient has a gradual decline in hemoglobin. Depending on the result, we will provide further recommendation. Meanwhile, avoid heparin and heparin-containing products. Thank you for the consult. I will continue to be available. Please call with questions. MD EVAN Díaz/ELVIRA /[id number]
[2019-09-17] VITALS (14 sets, daily range): BP systolic 98–117; BP diastolic 50–67
[2019-09-17] MEDS: ONDANSETRON HCL INJ 2MG/ML 2ML 2 MG/ML VIAL IV PRN ×2 (01:18→10:25)
--- NOTE | 2019-09-17 01:18 | NUR ---
Medicated for c/o nausea.
[2019-09-17 05:07] LABS: BASOPHILS % 0.3 % (0.0-1.0); EOSINOPHILS # (AUTO) 0.4 (0.0-0.4); EOSINOPHILS % 3.8 % (0.0-6.0); HEMATOCRIT 30.3 % (34.2-44.1); HEMOGLOBIN 9.7 g/dL (12.0-16.0); LYMPHOCYTES # (AUTO) 0.8 (1.0-3.2); MEAN CORPUSCULAR HEMOGLOBIN 28.9 pg (28-32); MEAN CORPUSCULAR VOLUME 90.2 fL (81-99); MONOCYTES # (AUTO) 0.9 (0.2-0.8); MONOCYTES % 8.7 % (4.4-11.3); NEUTROPHILS % 78.7 % (38.7-80.0); PLATELET COUNT 58 x10e3/uL (140-360); RED BLOOD COUNT 3.36 x10e6/uL (3.6-5.1); RED CELL DISTRIBUTION WIDTH 13.2 % (11.7-14.4)
[2019-09-17 05:22] LABS: ANION GAP 18.9 mmol/L (8-16); CALCIUM 8.3 mg/dL (8.4-10.2); CREATININE, SERUM 2.71 mg/dL (0.57-1.11); POTASSIUM 3.9 mmol/L (3.5-5.1)
[2019-09-17] MEDS: METOCLOPRAMIDE HCL 10 MG/2ML VIAL IV SCH ×4 (06:03→23:47)
[2019-09-17] MEDS: INSULIN LISPRO 100 UNIT/1 ML 3ML VIAL SQ SCH ×4 (08:59→21:35)
[2019-09-17] MEDS: CARVEDILOL 12.5 MG TAB PO SCH ×2 (09:00→17:00)
[2019-09-17] MEDS: TICAGRELOR 90 MG TABLET PO SCH ×2 (09:20→21:35)
[2019-09-17] MEDS: PANTOPRAZOLE 40 MG 10ML VIAL IV SCH ×2 (09:20→17:03)
[2019-09-17] MEDS: ASPIRIN 81 MG CHEW TAB PO SCH (09:20)
[2019-09-17] MEDS: AMIODARONE HCL 200 MG TAB PO SCH ×2 (09:20→17:03)
--- NOTE | 2019-09-17 14:04 | Progress Note ---
DATE: 09/17/2019 Cardiology Progressive Note SUBJECTIVE: The patient is without any new complaints this morning. However, she is a bit drowsy. She received some recent pain medication. She denies any chest pain or shortness of breath. LABORATORY DATA: WBC 10.11, hemoglobin 9.7, hematocrit 30.3, platelets 58. Sodium 137, potassium 39, BUN 27, creatinine 2.71. TELEMETRY: Normal sinus rhythm. OBJECTIVE: VITAL SIGNS: Temperature 98.6, pulse 75, oxygen saturation 98% on room air, respiratory rate 20, blood pressure 109/62. GENERAL: Drowsy. Family at the bedside. Appears to be resting comfortably in bed. NECK: Supple. No JVD noted. CARDIOVASCULAR: Normal rate and rhythm. No murmurs. No gallops. LUNGS: Clear to auscultation throughout. No wheezing. No rhonchi or crackles. ABDOMEN: Soft, nontender. EXTREMITIES: Lower extremity, trace edema bilaterally. IMPRESSION: 1. Acute on chronic systolic heart failure. 2. Ventricular tachycardia. 3. Ischemic cardiomyopathy. 4. Coronary artery disease, status post percutaneous coronary intervention. 5. Pulmonary edema. 6. Acute on chronic kidney disease, nonhemodialysis. 7. Hyperlipidemia. 8. Diabetes mellitus. 9. History of cerebrovascular accident. RECOMMENDATIONS: Continue volume management per Nephrology. Continue the above-listed cardiac medication. Monitor the patient on telemetry and patient is to wear her LifeVest at all time given the need for defibrillation. She will require another coronary angiogram. We will plan on the timing. Continue dual anti-platelet therapy. Dictated by Anna Marie Sarabia NP MD KELSEY Muniz/ELVIRA /[id number]
--- NOTE | 2019-09-17 14:19 | Progress Note ---
DATE: 09/17/2019 SUBJECTIVE: The patient states breathing much better today. She is on room air. She has had increased ultrafiltration yesterday during dialysis. Vital signs are stable. Scheduled for dialysis tomorrow. OBJECTIVE: VITAL SIGNS: Her temperature is 98.6, pulse 75, respiratory rate is 20, blood pressure 109/62, pulse ox 98% on room air. GENERAL: Not in acute distress. Alert and oriented x3. Cooperative on examination. HEENT: Head; normocephalic, atraumatic. Eyes; pupils are equal, round, and reactive to light bilaterally. Extraocular movements intact bilaterally. Throat; no evidence of erythema or exudates in the posterior pharynx. Has poor dentition. NECK: Supple. Good range of motion. PULMONARY: Clear to auscultation bilaterally. No wheezing, no rales, no rhonchi, no crackles appreciated. CARDIOVASCULAR: Positive S1 and S2. No murmurs, rubs, or gallops appreciated. ABDOMEN: Soft, nondistended, and nontender to palpation. Bowel sounds present. MUSCULOSKELETAL: Strength is 5/5 throughout. No evidence of any muscle deficits on examination. No weakness appreciated. NEUROLOGIC: Cranial nerve II through XII grossly intact. No evidence of any neurological deficits on exam. SKIN: Intact. Warm to touch. Good cap refill. PSYCHIATRIC: Normal affect and mood. EXTREMITIES: No edema. Good range of motion throughout. LABORATORY FINDINGS: Show white count 10.1, hemoglobin 9.7, and hematocrit is 30, platelets are still downtrending to 58. Coagulation; PT 14, INR 1, PTT is 29. Chemistry; sodium 137, potassium 3.9, chloride 109, bicarb 22, anion gap of 18, BUN is 27, creatinine is 2.7, glucose is 125, calcium is 8.3. Iron saturation 30%. HIT antibody pending. IMPRESSION: 1. Acute exacerbation of congestive heart failure with systolic dysfunction with EF of 20%, on the LifeVest. 2. Nonsustained ventricular tachycardia with LifeVest triggering x2 on 09/13/2019. 3. Recent diagnosis of cerebrovascular accident. 4. Hypertension. 5. Recent ST-elevation myocardial infarction, status post PCI in early August 2019. 6. Hyperlipidemia. 7. Healthcare-associated pneumonia, resolved. 8. Urinary retention-continue with Turk on discharge. 9. Acute kidney injury secondary to acute tubular necrosis and hypotension. 10. Hypoxia, improved. 11. Thrombocytopenia concerning for heparin-induced thrombocytopenia. PLAN: At this time, she is being followed by Cardiology. She is on amiodarone. She will receive hemodialysis tomorrow with increased ultrafiltration. She will continue with the LifeVest. She is on anti-platelet therapy and statin. Blood pressure better controlled and monitoring very closely. Pulmonary is also following as well. She will continue with the Turk upon discharge. As for her thrombocytopenia, there is a HIT antibody has been ordered, pending final results. Overall plan of care, get a.m. labs. I will get dialysis tomorrow. Once she improves, she can be discharged to home. She will be transferred to the medical floor today. She will probably be here throughout the week until she improves much better clinically. She has improved tremendously while she has been here. MD SUKHJINDER Luna/ELVIRA /[id number]
--- NOTE | 2019-09-17 19:00 | NUR ---
RECEIVED PATIENT IN BEDSIDE REPORT. PATIENT REPORTS SHE HAD A BM WHILE SITTING IN WHEELCHAIR. PATIENT CHANGED. REDNESS TO GLUTEAL CLEFT NOTED, APPLIED ALLEVYN PATCH, WILL INITIATE Q2 TURNS. PROVIDED PERICARE AROUND RIGGS. ELEVATED HEELS OFF BED TO PREVENT SKIN BREAKDOWN, NO REDNESS NOTED TO HEELS. NO PAIN REPORTED. NO S&S OF DISTRESS NOTED. BED LOCKED IN LOWEST POSITION, SIDE RAILS UPX2, CALL LIGHT IN REACH. DAUGHTER AT BEDSIDE.
[2019-09-17] MEDS: ALBUTEROL/IPRATROPIUM 3 ML NEB NEB PRN (19:21)
--- NOTE | 2019-09-17 19:30 | Progress Note ---
DATE: 09/17/2019 SUBJECTIVE: The patient looks stable. She is currently on albuterol and Atrovent q.4 hours, ticagrelor 90 mg q.12 hours, lorazepam 0.5 b.i.d., atorvastatin 80 mg at bed time, Protonix 40 mg b.i.d., Coreg 6.25 b.i.d., insulin lispro before meals and at bedtime, insulin glargine 10 units at bedtime, bumetanide 2 mg b.i.d., melatonin 3 mg at bedtime, amiodarone 200 mg b.i.d., aspirin 81 mg a day, hydralazine 10 mg q.4 hours, spironolactone 25 mg daily, heparin 5000 units p.r.n., and metoclopramide 10 mg q.6 hours. OBJECTIVE: VITAL SIGNS: Blood pressure 108/50, pulse 85, oxygen saturation 100, respiratory rate 28. HEENT: Atraumatic. NECK: No tenderness. LUNGS: Aerating well. HEART: No murmurs. ABDOMEN: Soft. No pedal edema. LABORATORY DATA: In terms of the lab, sodium 137, potassium 3.9, chloride 100, BUN 27, creatinine 2.71, and sugar 125. WBC 10.1, hemoglobin 9.7, platelets 58,000. Lipase 18. PT 14.6 and PTT 29.2. AST 28, total bilirubin 0.6, ALT 37, and alkaline phosphatase 154. IMPRESSION: 1. Acute hypoxemic respiratory failure. 2. Pulmonary edema. 3. Acute systolic heart failure. 4. Coronary artery disease with recent non-ST elevation myocardial infarction. 5. Acute kidney injury. RECOMMENDATION: Continue with the same medication, but hold heparin due to the presence of thrombocytopenia. Dictated by Cody Hernandez MD MD LUCIANO Pope/ELVIRA /[id number] this encounter was performed and documented by dr hernandez. CYNTHIA
[2019-09-17] MEDS: ATORVASTATIN 40 MG TAB PO SCH (21:35)
[2019-09-17] MEDS: INSULIN GLARGINE 100 UNITS/ML VIAL SQ SCH (21:36)
[2019-09-18] VITALS (8 sets, daily range): BP systolic 95–121; BP diastolic 53–70
[2019-09-18] MEDS: METOCLOPRAMIDE HCL 10 MG/2ML VIAL IV SCH ×3 (05:41→16:23)
[2019-09-18 06:30] LABS: BASOPHILS % 0.2 % (0.0-1.0); EOSINOPHILS # (AUTO) 0.7 (0.0-0.4); EOSINOPHILS % 6.2 % (0.0-6.0); HEMOGLOBIN 10.6 g/dL (12.0-16.0); LYMPHOCYTES # (AUTO) 1.2 (1.0-3.2); MEAN CORPUSCULAR HEMOGLOBIN 29.1 pg (28-32); MEAN CORPUSCULAR HGB CONC 32.1 g/dL (31-35); MEAN CORPUSCULAR VOLUME 90.7 fL (81-99); MONOCYTES # (AUTO) 1.3 (0.2-0.8); MONOCYTES % 12.3 % (4.4-11.3); NEUTROPHILS # (AUTO) 7.6 (2.1-6.9); PLATELET COUNT 96 x10e3/uL (140-360); RED BLOOD COUNT 3.64 x10e6/uL (3.6-5.1); RED CELL DISTRIBUTION WIDTH 13.5 % (11.7-14.4)
[2019-09-18 06:48] LABS: ANION GAP 15.6 mmol/L (8-16); CALCIUM 8.5 mg/dL (8.4-10.2); CREATININE, SERUM 3.25 mg/dL (0.57-1.11); POTASSIUM 3.6 mmol/L (3.5-5.1)
--- NOTE | 2019-09-18 07:00 | NUR ---
Received patient lying in bed with eyes closed. Family member at bedside. Respiration even and unlabored without SOB. Call light in reach.
[2019-09-18] MEDS: INSULIN LISPRO 100 UNIT/1 ML 3ML VIAL SQ SCH ×4 (07:51→20:29)
[2019-09-18] MEDS: ASPIRIN 81 MG CHEW TAB PO SCH (08:13)
[2019-09-18] MEDS: PANTOPRAZOLE 40 MG 10ML VIAL IV SCH ×2 (08:13→16:22)
[2019-09-18] MEDS: TICAGRELOR 90 MG TABLET PO SCH ×2 (08:13→20:29)
[2019-09-18] MEDS: AMIODARONE HCL 200 MG TAB PO SCH ×2 (09:00→16:22)
[2019-09-18] MEDS: CARVEDILOL 12.5 MG TAB PO SCH ×2 (09:00→16:23)
--- NOTE | 2019-09-18 12:48 | NUR ---
ORDERS REC'D TODAY FOR LTAC EVAL CHOICE LETTER SIGNED BY PT FOR [facility] MOT INITIATED ARGENIS ALTAMIRANO WITH [facility] NOTIFIED OF CONSULT
--- NOTE | 2019-09-18 13:30 | Progress Note ---
DATE: 09/16/2019 SUBJECTIVE: The patient is a 64-year-old female, who is known of having diagnosis of congestive heart failure, renal failure, coronary artery disease, type 2 diabetes mellitus, and systemic cardiomyopathy with ejection fraction in the 20s. The patient had hemodialysis today and 3 liters of fluid were removed. Currently, she is alert, cooperative. Blood pressure 99/69, pulse 69, O2 saturation 100, respiratory rate 22. The patient is on albuterol and Atrovent nebulization q.4 , Ondansetron 4 mg q.6, metoclopramide 10 mg t.i.d., heparin 5000 p.r.n., atorvastatin 80 mg at bedtime, Protonix 40 mg b.i.d., lorazepam 0.5 mg b.i.d., insulin 10 units at bedtime, Bumex 10 mg b.i.d., Coreg 6.25 mg b.i.d., aspirin 81 mg a day, , spironolactone 25 mg daily, amiodarone 200 mg b.i.d. LABORATORY DATA: In terms of labs, hemoglobin is 9.6, platelets 72. BUN 43, creatinine 2.89 albumin 2.8. Sodium 136, potassium 3.7. WBC 8.74. Total bilirubin 0.6. AST 28, ALT 37, alkaline phosphatase 154. IMPRESSION: 1. Ischemic cardiomyopathy. 2. Congestive heart failure. 3. Coronary artery disease. 4. Type 2 diabetes mellitus. 5. Renal failure. 6. Hyperlipidemia state after recent coronary artery disease. 7. Severe ejection fraction in the 20s. RECOMMENDATIONS: Continue with the current medications. MD LUCIANO Pardo/MODL /[id number]
--- NOTE | 2019-09-18 16:06 | Progress Note ---
DATE: 09/18/2019 Medicine Progress Note SUBJECTIVE: The patient is doing well today with no complaints. She had hemodialysis today. She is breathing much better now. She is off oxygen. She is on room air. No overnight events. OBJECTIVE: VITAL SIGNS: Temperature 96.9, pulse 82, respiratory rate is 16, last blood pressure recorded 95/54. She is doing well. She is saturating 92% on room air. GENERAL: Not in acute distress. Alert and oriented x3. Cooperative on examination. HEENT: Head; normocephalic, atraumatic. Eyes; pupils are equal, round, and reactive to light bilaterally. Extraocular movements intact bilaterally. Throat; no evidence of erythema or exudates in the posterior pharynx. Has poor dentition. NECK: Supple. Good range of motion. PULMONARY: Clear to auscultation bilaterally. No wheezing, no rales, no rhonchi, no crackles appreciated. CARDIOVASCULAR: Positive S1 and S2. No murmurs, rubs, or gallops appreciated. ABDOMEN: Soft, nondistended, and nontender to palpation. Bowel sounds present. MUSCULOSKELETAL: Strength is 5/5 throughout. No evidence of any muscle deficits on examination. No weakness appreciated. NEUROLOGIC: Cranial nerve II through XII grossly intact. No evidence of any neurological deficits on exam. SKIN: Intact. Warm to touch. Good cap refill. PSYCHIATRIC: Normal affect and mood. EXTREMITIES: No edema. Good range of motion throughout. LABORATORY FINDINGS: Show white count was 10.8, hemoglobin 10.6, hematocrit is 33, platelets of 96. Chemistry; sodium 134, potassium 3.6, chloride 100, bicarb 22, anion gap of 15, BUN is 29, creatinine is 3.25 glucose 121, calcium 8.5. HIT antibodies pending. MICROBIOLOGY: Blood cultures, urine cultures were negative. IMPRESSION: 1. Acute exacerbation of congestive heart failure with systolic dysfunction with an ejection fraction of 20% with a LifeVest. 2. Nonsustained ventricular tachycardia with LifeVest x2 triggers on 09/13/2019. 3. Recent cerebrovascular accident earlier this month. 4. Hypertension. 5. Recent ST-elevation myocardial infarction, status post percutaneous coronary intervention in early August 2019. 6. Hyperlipidemia. 7. Associated pneumonia-resolved. 8. Urinary retention-continue with Turk on discharge. 9. Acute kidney injury secondary to acute tubular necrosis and hypotension. 10. Hypoxia, improved. 11. Thrombocytopenia concerning for heparin-induced thrombocytopenia, improving. PLAN: At this time, continue with cardioprotective medications. She did receive hemodialysis today with 3 L ultrafiltration. She will likely receive some dialysis tomorrow. Repeat labs in the morning. Cardiology and Pulmonary are following closely. She will continue with the Turk upon discharge with Urology. As for her platelets, it has improved tremendously compared to yesterday, were still pending HIT antibody Hematology is following. The patient will likely need LTAC as her acute kidney injury has not resolved at this time and may be longer before she improves clinically. Order has been placed for Case Management to initiate the process. I discussed this with the patient, nursing staff, and bottle caser. MD SUKHJINDER Luna/KAITLYNNL /[id number]
--- NOTE | 2019-09-18 19:12 | Progress Note ---
DATE: 09/18/2019 Cardiology progress note SUBJECTIVE: The patient denies chest pain. She does continue some shortness of breath. She said she had hemodialysis today. OBJECTIVE: VITAL SIGNS: Temperature 96.9 degrees, pulse 82, respiratory rate 16, blood pressure 95/54, oxygen saturation 96% on room air. GENERAL: Awake, alert, in no acute distress. LUNGS: Clear to auscultation bilaterally. No wheezes or crackles. CARDIOVASCULAR: Normal rate. Regular rhythm. No murmur. Normal S1, S2. ABDOMEN: Soft, nontender. EXTREMITIES: Trace edema. CARDIAC MEDICATIONS: Carvedilol 6.25 mg p.o. b.i.d., amiodarone 200 mg p.o. b.i.d., aspirin 81 mg p.o. daily, atorvastatin 80 mg p.o. at bedtime. LABORATORY DATA: WBC 10.83, hemoglobin 10.6, hematocrit 33, and platelets 96. Sodium 134, potassium 3.6, chloride 100, CO2 of 22 BUN 39, and creatinine 3.25. TELEMETRY: Normal sinus rhythm IMPRESSION: 1. Pshii-af-zozoujm systolic heart failure. 2. Ventricular tachycardia. 3. Ischemic cardiomyopathy. 4. Coronary artery disease status post PCI. 5. Pulmonary edema. 6. Chronic kidney disease, currently on hemodialysis. 7. Hypertension. 8. Diabetes mellitus. 9. History of cerebrovascular accident. RECOMMENDATIONS: Volume management per Nephrology. Ultrafiltration as tolerated. Continue current cardiac medications otherwise. Monitor the patient closely on telemetry. Continue to wear LifeVest given prior ventricular tachycardia requiring defibrillation. Once her renal function improves, she will require coronary angiogram. We will continue to monitor closely. Continue dual antiplatelet therapy given very recent stent. Thank you for this consult. We will continue to follow. Litzy Singh MD ABS/MODL /[id number]
--- NOTE | 2019-09-18 19:14 | NUR ---
PT IS RESTING IN BED. RESPIRATION IS EVEN AND UNLABORED, NO DISTRESS NOTED. BED IN THE LOWEST POSITION, LOCKED, AND CALL LIGHT WITHIN REACH. WILL CONTINUE TO MONITOR.
--- NOTE | 2019-09-18 19:21 | NUR ---
Report given to shift production supervisor. respiration even and unlabored without SOB.Family at bedside. Call light in reach.
[2019-09-18] MEDS: INSULIN GLARGINE 100 UNITS/ML VIAL SQ SCH (20:29)
[2019-09-18] MEDS: ATORVASTATIN 40 MG TAB PO SCH (20:29)
[2019-09-19] VITALS (8 sets, daily range): BP systolic 91–114; BP diastolic 50–59
[2019-09-19] MEDS: METOCLOPRAMIDE HCL 10 MG/2ML VIAL IV SCH ×4 (05:25→16:42)
[2019-09-19 06:31] LABS: BASOPHILS % 0.3 % (0.0-1.0); EOSINOPHILS # (AUTO) 0.5 (0.0-0.4); EOSINOPHILS % 4.8 % (0.0-6.0); HEMATOCRIT 30.8 % (34.2-44.1); HEMOGLOBIN 9.8 g/dL (12.0-16.0); LYMPHOCYTES % 10.5 % (18.0-39.1); MEAN CORPUSCULAR HEMOGLOBIN 28.9 pg (28-32); MEAN CORPUSCULAR HGB CONC 31.8 g/dL (31-35); MEAN CORPUSCULAR VOLUME 90.9 fL (81-99); MONOCYTES # (AUTO) 1.1 (0.2-0.8); MONOCYTES % 11.3 % (4.4-11.3); NEUTROPHILS # (AUTO) 6.7 (2.1-6.9); NEUTROPHILS % 72.7 % (38.7-80.0); PLATELET COUNT 77 x10e3/uL (140-360); RED BLOOD COUNT 3.39 x10e6/uL (3.6-5.1); RED CELL DISTRIBUTION WIDTH 13.7 % (11.7-14.4)
[2019-09-19 06:55] LABS: ANION GAP 15.8 mmol/L (8-16); CREATININE, SERUM 3.12 mg/dL (0.57-1.11); POTASSIUM 3.8 mmol/L (3.5-5.1)
--- NOTE | 2019-09-19 07:10 | NUR ---
Received patient lying in bed with eyes closed. Respiration even and unlabored without SOB. Turk catheter in placed, intact, draining yellow colored urine to bag. Family member at bedside. Call light in reach.
[2019-09-19] MEDS: INSULIN LISPRO 100 UNIT/1 ML 3ML VIAL SQ SCH ×4 (07:30→21:00)
[2019-09-19 08:03] LABS: PLATELET ESTIMATE MARKEDLY DECREASED; PLATELET MORPHOLOGY COMMENT FEW LARGE
[2019-09-19] MEDS: PANTOPRAZOLE 40 MG 10ML VIAL IV SCH ×2 (08:45→16:41)
[2019-09-19] MEDS: TICAGRELOR 90 MG TABLET PO SCH ×2 (08:45→21:17)
[2019-09-19] MEDS: ASPIRIN 81 MG CHEW TAB PO SCH (08:45)
[2019-09-19] MEDS: CARVEDILOL 12.5 MG TAB PO SCH ×2 (08:46→16:42)
[2019-09-19] MEDS: AMIODARONE HCL 200 MG TAB PO SCH ×2 (08:46→16:41)
--- NOTE | 2019-09-19 10:45 | NUR ---
Follow up visit. Pt states she is waiting for possible transfer. Pt's at bedside. Will continue to follow as able. SUSHMA URENA [employer] Supervisor Spiritual Care Department O: [phone] Pager: [phone] ([phone] calling from)
--- NOTE | 2019-09-19 13:00 | NUR ---
Indwelling Turk catheter discontinued as ordered, catheter intact. Respiration even and unlabored without SOB.
--- NOTE | 2019-09-19 14:06 | Diagnostic Imaging Report ---
EXAMINATION: CHEST 2 VIEWS INDICATION: Shortness of breath COMPARISON: Chest are graft of 09/14/2019 FINDINGS: LINES/TUBES:EKG leads overlie the chest. Right IJ central venous catheter in unchanged position, terminating at the superior cavoatrial junction. LUNGS:The lung volumes are improved compared to the prior chest radiographs. Bibasilar patchy opacities silhouette both hemidiaphragms. PLEURA:Small bilateral pleural effusions. No pneumothorax. MEDIASTINUM:The cardiomediastinal silhouette appears unchanged in size and shape. Status post coronary artery stent placement. BONES/SOFT TISSUES:No acute osseous injury. ABDOMEN:No free air under the diaphragm. IMPRESSION: Interval improvement in lung volumes. Bibasilar patchy opacities most likely represent subsegmental atelectasis. Small bilateral pleural effusions. Signed by: Chau Dorman MD on 09/19/2019 2:02 PM
--- NOTE | 2019-09-19 14:13 | NUR ---
Spoke with Barbara Sanchez with [facility]. Still pending insurance auth
[2019-09-19 15:10] LABS: FERRITIN 272.5 ng/mL (4.63-204.00)
--- NOTE | 2019-09-19 17:23 | Progress Note ---
DATE: 09/19/2019 Cardiology Progress Note SUBJECTIVE: The patient denies chest pain or shortness of breath. OBJECTIVE: VITAL SIGNS: Temperature 98.1 degrees, pulse 82, respiratory rate 16, blood pressure 107/56, and oxygen saturation 96% on room air. GENERAL: Awake, alert, in no acute distress. LUNGS: Clear to auscultation bilaterally. No wheezes or crackles. CARDIOVASCULAR: Normal rate and regular rhythm. No murmur. Normal S1 and S2. ABDOMEN: Soft and nontender. EXTREMITIES: No edema. CARDIAC MEDICATIONS: 1. Amiodarone 200 mg p.o. b.i.d. 2. Carvedilol 6.25 mg p.o. b.i.d. 3. Aspirin 81 mg p.o. daily. 4. Atorvastatin 80 mg p.o. at bedtime. LABORATORY DATA: Sodium 135, potassium 3.8, chloride 99, CO2 of 24, BUN 23, and creatinine 3.12. WBC 9.28, hemoglobin 9.8, hematocrit 30.8, and platelets 77. Chest x-ray, interval improvement in lung volumes. Bibasilar patchy opacities, most likely represent subsegmental atelectasis. Small bilateral pleural effusions. TELEMETRY: Normal sinus rhythm. IMPRESSION: 1. Acute on chronic systolic heart failure. 2. Ventricular tachycardia. 3. Ischemic cardiomyopathy. 4. Coronary artery disease, status post percutaneous coronary intervention. 5. Pulmonary edema. 6. Acute kidney disease, currently on hemodialysis. 7. Hypertension. 8. Diabetes mellitus. 9. History of cerebrovascular accident. RECOMMENDATIONS: Volume management per Nephrology given initiation of hemodialysis. Continue to monitor the patient on telemetry. The patient was instructed to continue to wear her LifeVest given prior ventricular tachycardia requiring defibrillation during this admission. The patient will need re-evaluation of her coronary arteries once her renal function improves. If there is no indication for revascularization, she will need ICD implantation for secondary prevention at that point. Continue dual antiplatelet therapy given her very recent stent. Prognosis is guarded. Thank you for this consult. We will continue to follow. Litzy Singh MD ABS/MODL /[id number]
--- NOTE | 2019-09-19 18:35 | NUR ---
Bladder scanned patient. 8 ml residual noted.
--- NOTE | 2019-09-19 19:09 | NUR ---
PT IS RESTING IN BED WITH FAMILY AT BEDSIDE. RESPIRATION IS EVEN AND UNLABORED, NO DISTRESS NOTED. BED IN THE LOWEST POSITION, LOCKED, AND CALL LIGHT WITHIN REACH. WILL CONTINUE TO MONITOR.
--- NOTE | 2019-09-19 19:12 | NUR ---
Report given to shiftman. Respiration even and unlabored without SOB. Call light in reach.
--- NOTE | 2019-09-19 20:06 | NUR ---
PER DR Harika ARGUETA GIVE PT ONE TIME DOSE OF VENOFER 100MG IV. WILL CONTINUE TO MONITOR.
[2019-09-19] MEDS: INSULIN GLARGINE 100 UNITS/ML VIAL SQ SCH (21:00)
[2019-09-19] MEDS: ATORVASTATIN 40 MG TAB PO SCH (21:17)
[2019-09-19] MEDS ORDERED: IRON SUCROSE 100 MG in SODIUM CHLORIDE 0.9% 100 ML 100 ML IV ONE (22:00)
[2019-09-19] MEDS: MELATONIN 3 MG TAB PO PRN (23:19)
[2019-09-20] VITALS (8 sets, daily range): BP systolic 106–119; BP diastolic 53–72
[2019-09-20] MEDS: METOCLOPRAMIDE HCL 10 MG/2ML VIAL IV SCH ×5 (00:20→23:37)
[2019-09-20 06:26] LABS: BASOPHILS % 0.3 % (0.0-1.0); EOSINOPHILS # (AUTO) 0.6 (0.0-0.4); HEMOGLOBIN 10.3 g/dL (12.0-16.0); LYMPHOCYTES # (AUTO) 1.3 (1.0-3.2); LYMPHOCYTES % 14.8 % (18.0-39.1); MEAN CORPUSCULAR HEMOGLOBIN 28.9 pg (28-32); MEAN CORPUSCULAR HGB CONC 32.2 g/dL (31-35); MEAN CORPUSCULAR VOLUME 89.9 fL (81-99); MONOCYTES # (AUTO) 1.1 (0.2-0.8); NEUTROPHILS # (AUTO) 5.6 (2.1-6.9); NEUTROPHILS % 64.4 % (38.7-80.0); PLATELET COUNT 118 x10e3/uL (140-360); RED BLOOD COUNT 3.56 x10e6/uL (3.6-5.1); RED CELL DISTRIBUTION WIDTH 13.5 % (11.7-14.4)
[2019-09-20 06:48] LABS: CALCIUM 8.9 mg/dL (8.4-10.2); CREATININE, SERUM 4.03 mg/dL (0.57-1.11)
[2019-09-20] MEDS: CARVEDILOL 12.5 MG TAB PO SCH ×2 (09:00→17:00)
[2019-09-20] MEDS: PANTOPRAZOLE 40 MG 10ML VIAL IV SCH ×2 (09:00→19:12)
[2019-09-20] MEDS ORDERED: HEPARIN SOD (PORCINE) 1000 UNIT/ML SDV IV PRN (09:00)
[2019-09-20] MEDS: INSULIN LISPRO 100 UNIT/1 ML 3ML VIAL SQ SCH ×4 (09:02→20:27)
--- NOTE | 2019-09-20 09:09 | NUR ---
REC'D AUTH FOR [facility] TODAY ROOM [address] [place] ATTENDING MOT COMPLETE AND GIVEN TO BRITTNEE PHONE NUMBER AND ROOM NUMBER GIVEN TO NURSE BRITTNEE TO CALL REPORT
--- NOTE | 2019-09-20 11:00 | NUR ---
Made Dr. Keita aware of patients wishes to be a DNR, showed him per Dr. Keita he will speak wit the patient and change the status. Addendum: 09/20/19 at 1954 by Katya Eng RN Showed him Palliative Care COSMETICIAN APPRENTICE note and per Neela he himself will speak to the patient and change the code status.
--- NOTE | 2019-09-20 13:01 | NUR ---
Nutrition Screen Note RD Recommendation for Physician: - Continue current diet, fluid restriction per MD Plan of Care: RD following, monitoring for tolerance and adequacy Nutrition reason for involvement: follow up Primary Diagnose(s): CHF PMH: DM2, CVA, STEMI, HTN, HLD, CHF Ht: 62 in Wt: 167 lb BMI: 30.5 kg/m2 IBW: [address] Assessment: 09/20: Follow up. Medical providers at bedside and bedside testing at time of visits. Pt discussed during am rounds, plan for heart cath placement tomorrow with discharge to [facility] after procedure. Pt with poor intake yesterday, previously eating 50-100% of meals. No GI distress reported in rounds. Labs and meds reviewed, pt remains hyponatremic, Cr elevated, and continues on insulin. Chart reviewed. HD initiated- volume olverload improving per MD notes. Will monitor and continue to follow. 09/14: Follow up. Pt transferred to ICU 2/2 SOB and v-tach, received shock from LifeVest. Appetite and intake improving, 50-100% of meals recently. No GI distress, LBM 09/14. Chart reviewed. Labs and meds noted. Skin intact. Will monitor and continue to follow. (09/07) 64 YOF admitted for CHF, seen today per dx screen. Pt recently D/C'd from hospital last week for CVA, STEMI, and CHF with extensive diet education provided to pt and daughter x 3. Pt reports decreased appetite currently, c/o SOB- currently on O2 per nasal canula. Noted significant wt/fluid gain from wt of 67.2 kg kg last week. Reviewed Na diet and fluid restriction with pt, reports good compliance at home. Pt denies GI distress. All questions and concerns addressed at time of visit. Chart reviewed. Labs and meds reviewed. Will monitor and continue to follow. Current Diet: 1800 ADA Malnutrition Evaluation (09/07/19) The patient does not meet criteria for a specified degree of malnutrition at this time. Will re-evaluate at follow-up as appropriate. Diet Education Needs Assessment: Diet education indicated, reviewed Na and fluid restriction. 09/07 Diet tolerance: tolerating po Nutrition Care Level: low Signed: Molly Tirado RD, LD, [facility]
[2019-09-20] MEDS: ASPIRIN 81 MG CHEW TAB PO SCH (14:14)
[2019-09-20] MEDS: AMIODARONE HCL 200 MG TAB PO SCH ×2 (14:14→19:12)
[2019-09-20] MEDS: TICAGRELOR 90 MG TABLET PO SCH ×2 (14:14→21:09)
--- NOTE | 2019-09-20 14:42 | Diagnostic Imaging Report ---
EXAMINATION: CHEST SINGLE (PORTABLE) INDICATION: Shortness of breath COMPARISON: Multiple prior chest radiograph, most recently 09/19/2019 FINDINGS: LINES/TUBES:Numerous support lines and tubes overlie the patient. Right IJ central venous catheter terminates at the superior cavoatrial junction. LUNGS:The lungs are moderately inflated. There is perihilar fullness and indistinctness of the pulmonary vasculature. PLEURA:Likely small left pleural effusion. No pneumothorax. MEDIASTINUM:The cardiomediastinal silhouette appears unchanged in size and shape. BONES/SOFT TISSUES:No acute osseous injury. ABDOMEN:No free air under the diaphragm. IMPRESSION: Mild interstitial pulmonary edema. Otherwise, no significant change. Signed by: Chau Dorman MD on 09/20/2019 2:39 PM
--- NOTE | 2019-09-20 19:00 | NUR ---
RECEIVED PATIENT IN BEDSIDE REPORT. PATIENT RESTING AT THIS TIME. NO PAIN REPORTED. NO S&S OF DISTRESS NOTED. BED LOCKED IN LOWEST POSITION, SIDE RAILS UPX2, CALL LIGHT IN REACH.
[2019-09-20] MEDS: ATORVASTATIN 40 MG TAB PO SCH (21:09)
[2019-09-20] MEDS: INSULIN GLARGINE 100 UNITS/ML VIAL SQ SCH (21:10)
[2019-09-20] MEDS: MELATONIN 3 MG TAB PO PRN (23:36)
[2019-09-21] VITALS (7 sets, daily range): BP systolic 83–120; BP diastolic 50–67
--- NOTE | 2019-09-21 01:04 | Progress Note ---
DATE: 09/20/2019 Cardiology Progress Note SUBJECTIVE: The patient denies chest pain or shortness of breath. OBJECTIVE: VITAL SIGNS: Temperature 96 degrees, pulse 80, respiratory rate 18, blood pressure 119/53, and oxygen saturation 98%. GENERAL: Awake and alert, in no acute distress. LUNGS: Clear to auscultation bilaterally. No wheezes or crackles. CARDIOVASCULAR: Normal rate. Regular rhythm. No murmur. Normal S1 and S2. ABDOMEN: Soft and nontender. EXTREMITIES: No edema. CARDIAC MEDICATIONS: Atorvastatin 80 mg p.o. at bedtime, amiodarone 50 mg p.o. b.i.d., aspirin 81 mg p.o. daily, and carvedilol 6.25 mg p.o. b.i.d. LABORATORY DATA: WBC 8.63, hemoglobin 10.3, hematocrit 32, and platelets 118. Sodium 132, potassium 4, chloride 97, CO2 of 22, BUN 30, creatinine 4.03. TELEMETRY: Normal sinus rhythm. IMPRESSION: 1. Mszar-zi-efkojbl systolic heart failure. 2. Ventricular tachycardia and ischemic cardiomyopathy. 3. Coronary artery disease, status post percutaneous coronary intervention. 4. Pulmonary edema. 5. Acute kidney injury, currently on hemodialysis. 6. Hypertension. 7. Diabetes mellitus. 8. History of cerebrovascular accident. RECOMMENDATIONS: Volume management per Nephrology. Initiation of hemodialysis. Per discussion with Nephrology, they feel her acute kidney injury secondary to ATN and there is still chance of renal recovery. We will hold off on cardiac catheterization to rule out coronary anatomy at this time. Continue current cardiac medications. Monitor the patient closely on telemetry. The patient to continue wearing her LifeVest. Given prior ventricular tachycardia requiring defibrillation. Plan for right heart catheterization tomorrow to evaluate her cardiac output and cardiac index is low. She will need transfer to the [facility] for mechanical circulatory support as well as evaluation for advanced heart failure therapy. Otherwise, plan for transfer to LTAC to monitor for renal recovery and dialysis. The patient will need a fibrillator placed after coronary angiogram and she does not require any further revascularization. Continue dual anti-platelet therapy at this time. Her prognosis is guarded. Thank you for this consult. We will continue to follow. Litzy Singh MD ABS/MODL /[id number]
[2019-09-21] MEDS: METOCLOPRAMIDE HCL 10 MG/2ML VIAL IV SCH (06:02)
[2019-09-21 06:16] LABS: BASOPHILS % 0.5 % (0.0-1.0); EOSINOPHILS # (AUTO) 0.4 (0.0-0.4); HEMATOCRIT 33.6 % (34.2-44.1); HEMOGLOBIN 10.9 g/dL (12.0-16.0); LYMPHOCYTES # (AUTO) 1.1 (1.0-3.2); LYMPHOCYTES % 12.5 % (18.0-39.1); MEAN CORPUSCULAR HEMOGLOBIN 28.9 pg (28-32); MEAN CORPUSCULAR HGB CONC 32.4 g/dL (31-35); MEAN CORPUSCULAR VOLUME 89.1 fL (81-99); MONOCYTES # (AUTO) 1.1 (0.2-0.8); MONOCYTES % 12.5 % (4.4-11.3); NEUTROPHILS # (AUTO) 5.8 (2.1-6.9); NEUTROPHILS % 69.1 % (38.7-80.0); PLATELET COUNT 125 x10e3/uL (140-360); RED BLOOD COUNT 3.77 x10e6/uL (3.6-5.1); RED CELL DISTRIBUTION WIDTH 13.9 % (11.7-14.4)
[2019-09-21 06:31] LABS: ANION GAP 17.1 mmol/L (8-16); CALCIUM 9.4 mg/dL (8.4-10.2); CREATININE, SERUM 3.78 mg/dL (0.57-1.11); POTASSIUM 4.1 mmol/L (3.5-5.1)
[2019-09-21] MEDS: INSULIN LISPRO 100 UNIT/1 ML 3ML VIAL SQ SCH ×4 (07:30→21:00)
[2019-09-21] MEDS: TICAGRELOR 90 MG TABLET PO SCH ×2 (09:00→21:29)
[2019-09-21] MEDS: AMIODARONE HCL 200 MG TAB PO SCH ×2 (09:00→18:43)
[2019-09-21] MEDS: CARVEDILOL 12.5 MG TAB PO SCH ×2 (09:00→18:46)
[2019-09-21] MEDS: METOCLOPRAMIDE HCL 10 MG TAB PO SCH ×3 (12:00→23:43)
[2019-09-21] MEDS ORDERED: MIDAZOLAM HCL 2 MG/2 ML VIAL ONE (13:05)
[2019-09-21] MEDS ORDERED: LIDOCAINE HCL 2% LOCAL 20 ML VIAL ONE (13:05)
[2019-09-21] MEDS ORDERED: FENTANYL CITRATE/PF 100MCG/2 ML INJ ONE (13:05)
[2019-09-21] MEDS ORDERED: SODIUM CHLORIDE 0.9% 1000ML 1,000 ML ONE (13:06)
[2019-09-21] MEDS ORDERED: HEPARIN SOD/SOD CHLORIDE 2,000 ML ONE (13:06)
--- NOTE | 2019-09-21 16:33 | Progress Note ---
DATE: 09/21/2019 Medicine Progress Note SUBJECTIVE: The patient is scheduled for a right heart catheterization today. She had pure ultrafiltration today with 1.5 L removed. She is breathing well on room air, even laid flat with no issues. The patient had voiced to the palliative care team about DNR and which I spoke with her at bedside as well and she did state that she wants to be DNR. Nurse and family were present throughout this conversation. DNR has been changed in computer, information has been provided. PHYSICAL EXAMINATION: VITAL SIGNS: Temperature 96.5, pulse 73, respiratory rate is 20, blood pressure 101/60, pulse ox 99% on 2 L nasal cannula. GENERAL: Not in acute distress. Alert and oriented x3. Cooperative on examination. HEENT: Head; normocephalic, atraumatic. Eyes; pupils are equal, round, and reactive to light bilaterally. Extraocular movements are intact bilaterally. Throat; no evidence of erythema or exudates in the posterior pharynx. Has poor dentition. NECK: Supple. Good range of motion. PULMONARY: Clear to auscultation bilaterally. No wheezing, no rales, no rhonchi, no crackles appreciated. CARDIOVASCULAR: Positive S1 and S2. No murmurs, rubs, or gallops appreciated. ABDOMEN: Soft, nondistended, and nontender to palpation. Bowel sounds present. MUSCULOSKELETAL: Strength is 5/5 throughout. No evidence of any muscle deficits on examination. No weakness appreciated. NEUROLOGIC: Cranial nerve 2 through 12 were grossly intact. No evidence of any neurological deficits on exam. SKIN: Intact. Warm to touch. Good cap refill. PSYCHIATRIC: Normal affect and mood. EXTREMITIES: No edema. Good range of motion throughout. LABORATORY FINDINGS: Show white count 8.3, hemoglobin 10.9, hematocrit 33.6, platelets of 125. Coagulation noted. Chemistry; sodium 134, potassium 4.1, chloride 97, bicarbonate 24, anion gap of 17, BUN is 20, creatinine is 3.7, glucose is 127, calcium is 9.4. IMAGING STUDIES: Chest x-ray from 09/20/2019, shows mild interstitial pulmonary edema. IMPRESSION: 1. Acute exacerbation of congestive heart failure, systolic dysfunction with an ejection fraction of 20% with a LifeVest. 2. Nonsustained ventricular tachycardia with LifeVest x2 triggers on 09/13/2019. 3. Recent diagnosis of cerebrovascular accident. 4. Hypertension. 5. Recent ST-elevation myocardial infarction, status post percutaneous coronary intervention in early August 2019. 6. Hyperlipidemia. 7. Pneumonia, resolved. 8. Urinary retention-continue with Turk catheter. 9. Acute kidney injury secondary to acute tubular necrosis, hypotension, still on dialysis. 10. Hypoxemia, improved. 11. Thrombocytopenia, improved. PLAN: At this time, she did receive pure ultrafiltration today with 1.5 L ultrafiltration. She is able to lay flat now. No evidence of any shortness of breath. Continue with cardioprotective medications. She is scheduled for right heart catheterization today by Cardiology. Her platelets improved, which Hematology is following closely. Plan is if the patient needs any kind of mechanical support after the right heart cath, the patient will be transferred to [facility] for further management and care. But if the patient does not on the mechanical support according to Cardiology, the patient can be discharged to [facility] for further management and care. This was discussed with the patient at bedside and she verbalized understanding. In relation to her code status, apparently Palliative Care has spoken to the patient about code status change. I walked into the room and spoke with the patient with nurse Shea present throughout the entire conversation and the patient voiced that she wants to be DNR/DNI. She reports that she does not want to be resuscitated. She does not want chest compressions, does not want any chemical interventions and does not want to be intubated. At this time, DNR has been initiated. It is placed in the chart in the computer and also bracelet was provided to the patient. The patient verbalized understanding and agrees with plan of care. She was alert and oriented x4. No cough, no issues. The patient otherwise will continue with same plan of care and monitor closely. She is now DNR. MD SUHKJINDER Luna/ELVIRA /[id number]
[2019-09-21] MEDS: ASPIRIN 81 MG CHEW TAB PO SCH (18:45)
--- NOTE | 2019-09-21 20:00 | NUR ---
PATIENT'S BP NOTED TO BE 83/50. PATIENT EXPERIENCING NO SYMPTOMS, RECENTLY GOT BP MEDS DURING DAY SHIFT. TOLD PATIENT AND FAMILY MEMBER TO MAKE SURE STAFF IS CALLED TO BEDSIDE IF PATIENT WANTS TO GET OUT OF BED. WILL CONTINUE TO MONITOR BP. DRESSING TO RIGHT GROIN C/D/I. SURROUNDING TISSUE IS SOFT. WILL CONTINUE TO MONITOR.
--- NOTE | 2019-09-21 21:20 | NUR ---
BP REASSESSED MANUALLY, /52. REMINDED PATIENT TO CALL FOR ASSISTANCE. WILL CONTINUE TO MONITOR.
[2019-09-21] MEDS: ATORVASTATIN 40 MG TAB PO SCH (21:29)
[2019-09-21] MEDS: PANTOPRAZOLE SOD 40 MG TABEC PO SCH (21:30)
[2019-09-21] MEDS: INSULIN GLARGINE 100 UNITS/ML VIAL SQ SCH (21:36)
[2019-09-22] VITALS: BP 107/57
--- NOTE | 2019-09-22 02:06 | Progress Note ---
DATE: 09/21/2019 Cardiology Progress Note SUBJECTIVE: The patient denies chest pain or shortness of breath. She underwent right heart catheterization today. OBJECTIVE: VITAL SIGNS: Temperature 96.5 degrees, pulse 73, respiratory rate 20, blood pressure 101/60, oxygen saturation 99%. GENERAL: Awake, alert, in no acute distress. LUNGS: Clear to auscultation bilaterally. No wheezes or crackles. CARDIOVASCULAR: Normal rate, regular rhythm. No murmur. Normal S1, S2. ABDOMEN: Soft, nontender. EXTREMITIES: No edema. CARDIAC MEDICATIONS: Atorvastatin 80 mg p.o. at bedtime, carvedilol 6.25 mg p.o. b.i.d., aspirin 81 mg p.o. daily, amiodarone 200 mg p.o. b.i.d. LABORATORY DATA: WBC 8.37, hemoglobin 10.9, hematocrit 33.6, platelets 125. Sodium 134, potassium 4.1, chloride 97, CO2 24, BUN 20, creatinine 3.78. TELEMETRY: Sinus tachycardia. IMPRESSION: 1. Xnsvz-ep-epaqxoe systolic heart failure. 2. Ventricular tachycardia. 3. Ischemic cardiomyopathy. 4. Coronary artery disease, status post percutaneous coronary intervention. 5. Pulmonary edema. 6. Acute kidney injury, currently on hemodialysis. 7. Hypertension. 8. Diabetes mellitus. 9. History of cerebrovascular accident. RECOMMENDATIONS: Volume management per Nephrology, given initiation of hemodialysis. Per discussion with Nephrology, they given her acute kidney injury secondary to ATN. There is still chance of renal recovery. Hold off coronary angiography to evaluate for ischemia at this time. Continue LifeVest. The patient had right heart catheterization performed today. Her cardiac output and cardiac index were discrepant with low cardiac index by Adry, but normal cardiac index by thermodilution. She is euvolemic based on her wedge pressure. Given she is currently asymptomatic, recommendation of current cardiac medications. At this time, if she has further decompensation, would recommend [facility] for mechanical circulatory support as well as evaluation for advanced heart failure therapy. In the meantime, continue dual antiplatelet therapy. Continue current cardiac medications, wear LifeVest at all times. She will need coronary angiography once her renal function improves, followed by ICD implantation if she requires no further revascularization. Her prognosis is guarded. Thank you for this consult. We will continue to follow. MD RAND Dutta/ELVIRA /[id number]
[2019-09-22 04:00] VITALS: BP 108/55
[2019-09-22 05:32] LABS: BASOPHILS % 0.5 % (0.0-1.0); EOSINOPHILS # (AUTO) 0.5 (0.0-0.4); EOSINOPHILS % 5.8 % (0.0-6.0); HEMATOCRIT 32.5 % (34.2-44.1); HEMOGLOBIN 10.8 g/dL (12.0-16.0); LYMPHOCYTES # (AUTO) 1.4 (1.0-3.2); LYMPHOCYTES % 16.9 % (18.0-39.1); MEAN CORPUSCULAR HEMOGLOBIN 29.4 pg (28-32); MEAN CORPUSCULAR HGB CONC 33.2 g/dL (31-35); MEAN CORPUSCULAR VOLUME 88.6 fL (81-99); MONOCYTES # (AUTO) 1.1 (0.2-0.8); MONOCYTES % 13.5 % (4.4-11.3); NEUTROPHILS # (AUTO) 5.2 (2.1-6.9); NEUTROPHILS % 62.8 % (38.7-80.0); PLATELET COUNT 128 x10e3/uL (140-360); RED BLOOD COUNT 3.67 x10e6/uL (3.6-5.1); RED CELL DISTRIBUTION WIDTH 13.8 % (11.7-14.4)
[2019-09-22 05:56] LABS: ANION GAP 19.3 mmol/L (8-16); CALCIUM 9.4 mg/dL (8.4-10.2); POTASSIUM 4.3 mmol/L (3.5-5.1)
[2019-09-22 05:59] LABS: CREATININE, SERUM 5.71 mg/dL (0.57-1.11)
[2019-09-22] MEDS: METOCLOPRAMIDE HCL 10 MG TAB PO SCH ×4 (06:57→16:47)
--- NOTE | 2019-09-22 07:00 | NUR ---
RECEIVED PATIENT RESTING IN BED NO SIGNS OF DISTRESS. FAMILY AT BEDSIDE. BED LOW, WHEELS LOCKED, SIDE RAILS X2. CALL LIGHT IN REACH WILL CONTINUE TO MONITOR PATIENT.
[2019-09-22] MEDS: INSULIN LISPRO 100 UNIT/1 ML 3ML VIAL SQ SCH ×3 (07:30→16:48)
[2019-09-22 07:32] VITALS: BP 110/57
[2019-09-22] MEDS: CARVEDILOL 12.5 MG TAB PO SCH ×2 (09:00→16:46)
[2019-09-22] MEDS: TICAGRELOR 90 MG TABLET PO SCH (09:10)
[2019-09-22] MEDS: PANTOPRAZOLE SOD 40 MG TABEC PO SCH (09:10)
[2019-09-22] MEDS: ASPIRIN 81 MG CHEW TAB PO SCH (09:10)
[2019-09-22] MEDS: AMIODARONE HCL 200 MG TAB PO SCH ×2 (09:10→16:46)
[2019-09-22 10:23] VITALS: BP 110/57
[2019-09-22] MEDS ORDERED: HEPARIN SOD (PORCINE) 1000 UNIT/ML SDV IV PRN (10:30)
[2019-09-22 11:26] VITALS: BP 104/56
[2019-09-22] MEDS ORDERED: ONDANSETRON HCL 4 MG ORAL DISINTEGRATING TAB PO PRN (11:45)
--- NOTE | 2019-09-22 13:25 | NUR ---
2.1L REMOVED DURING DIALYSIS. PATIENT TOLERATED WELL, NO SIGNS OF DISTRESS. WILL CONTINUE TO MONITOR PATIENT.
--- NOTE | 2019-09-22 14:06 | NUR ---
REPORT CALLED TO [facility] AT [facility]. SUMMARY OF CARE PROVIDED.
[2019-09-22 15:34] VITALS: BP 115/55
--- NOTE | 2019-09-22 17:13 | NUR ---
PATIENT DISCHARGED FROM FACILITY. PATIENT GATHERED ALL PERSONAL BELONGINGS, DISCHARGE INSTRUCTIONS, AND FOLLOW UP INFORMATION. LEFT UNIT IN [facility] AND WENT TO [facility] IN [facility]. NO SIGNS OF DISTRESS WHEN LEAVING FACILITY.
--- NOTE | 2019-09-22 21:56 | Progress Note ---
DATE: 09/22/2019 Cardiology Progress Note SUBJECTIVE: The patient denies chest pain or shortness of breath. She was seen during hemodialysis. OBJECTIVE: VITAL SIGNS: Temperature 96.6 degrees, pulse 78, respiratory rate 17, blood pressure 104/56, oxygen saturation 95% on room air. GENERAL: Awake, alert, in no acute distress. LUNGS: Clear to auscultation bilaterally. No wheezes or crackles. CARDIOVASCULAR: Normal rate, regular rhythm. No murmur. Normal S1, S2. ABDOMEN: Soft, nontender. EXTREMITIES: No edema. CARDIAC MEDICATIONS: 1. Amiodarone 200 mg p.o. b.i.d. 2. Aspirin 81 mg p.o. daily. 3. Atorvastatin 80 mg p.o. at bedtime. 4. Carvedilol 6.25 mg p.o. b.i.d. 5. Spironolactone 25 mg p.o. daily. 6. Brilinta 90 mg p.o. b.i.d. TELEMETRY: Normal sinus rhythm IMPRESSION: 1. Yvowa-sj-oqjjzbl systolic heart failure. 2. Ventricular tachycardia, ischemic cardiomyopathy. 3. Coronary artery disease, status post percutaneous coronary intervention. 4. Acute kidney injury, currently on hemodialysis. 5. Hypertension. 6. Diabetes mellitus. 7. History of cerebrovascular accident. RECOMMENDATIONS: Volume management per Nephrology, given initiation of hemodialysis. Per discussion with Nephrology, they believe her acute kidney injury secondary to ATN and there is still chance of renal recovery. Hold off on repeat coronary angiogram at this time to evaluate for ischemia, last diagram was reviewed. The patient has moderate coronary disease in her remaining vessels. Continue LifeVest. If no intervention on repeat angiogram, we will need ICD implantation at that time. As she is euvolemic based on her wedge and symptoms, however, would recommend continuation of current medical therapy, intermittent patient at time for renal recovery. If she has further decompensation, would recommend transfer to [facility] for mechanical circulatory support as well as availability evaluation for advanced heart failure therapy at that time. In the meantime, continue dual antiplatelet therapy. Her prognosis is guarded. Thank you for this consult. We will continue to follow. Litzy Singh MD ABS/MODL /[id number]
--- NOTE | 2019-09-23 04:43 | Discharge Summary ---
FINAL DISCHARGE DIAGNOSES: 1. Acute exacerbation of congestive heart failure with systolic dysfunction. EF of less than 20% with a LifeVest. 2. Nonsustained ventricular tachycardia with a LifeVest with 2 episodes of arrhythmia, in which she was shocked on 09/13/2019. 3. Recent diagnosis of cerebrovascular accident. 4. Hypertension. 5. Recent ST-elevation myocardial infarction, status post PCI in early August 2019. 6. Hyperlipidemia. 7. Pneumonia, resolved. 8. Urinary retention-continue with urinary Turk catheter. 9. Acute kidney injury secondary to acute tubular necrosis and hypotension, now on hemodialysis. 10. Hypoxemia, improved. 11. Thrombocytopenia, improved. CONSULTANTS: Hematology, Cardiology, and Pulmonary. PHYSICAL EXAMINATION: VITAL SIGNS: Temperature is 96.6, pulse 78, respirations 18, blood pressure 104/56, pulse ox 95% on room air. LABORATORY DATA: Labs show white count 8.3, hemoglobin 10.8, hematocrit 32.5, and platelets of 128. Chemistry; sodium 134, potassium 4.3, chloride 97, bicarbonate 22, anion gap of 19, BUN is 36, creatinine is 5.7, glucose is 152, calcium 9.4. Iron saturation was 12%. CK is 59. Troponins were elevated. Albumin 2.8. Lipase level 18. Vitamin B12 of 1002. Urinalysis negative. Urine culture negative. Blood cultures negative. Heparin-induced platelet antibody negative. Hepatitis negative. IMAGING STUDIES: Multiple chest x-rays showed evidence of pulmonary edema and possible pneumonia. Chest x-ray on discharge showed mild interstitial pulmonary edema. Otherwise, no significant change. Renal ultrasound performed showed no hydronephrosis or renal calculi. Right kidney 10.8 cm and left kidney 11.6 cm. HOSPITAL COURSE: A 64-year-old female with multiple comorbidities, who has recently had a STEMI, status post PCI and stent placement in the LAD, developed also acute cerebrovascular accident early in August 2019, was discharged, doing well, presented back due to fluid noncompliance and diuretics, came in with shortness of breath, orthopnea, dyspnea on exertion. The patient was admitted and treated for acute exacerbation of congestive heart failure. The patient has an EF of 20%. While here, Cardiology was consulted. The patient was on Lasix drip for significant period of time while here in the hospital. Her respiratory status improved somewhat, but she was very noncompliant with her diet. Pulmonary was consulted as well for further management and care. On 09/13/2019, the patient had nonsustained ventricular tachycardia on telemetry, in which her LifeVest triggered twice while in the hospital. She was transferred from the floor to the ICU for close monitoring and evaluation. She was on amiodarone drip, completed the course and started on oral amiodarone. She was also started on oral beta-blockade as well. The patient subsequently developed acute kidney injury underlying ATN secondary to hypotension during her nonsustained ventricular tachycardia. While here, the patient had a dialysis catheter and had several treatments of hemodialysis. Currently, she has not had any renal recovery at this time. She was also treated for underlying healthcare-associated pneumonia and completed all her antibiotics while here. She also had some evidence of urinary retention requiring Urology consultation, who recommended continuing with the Turk catheter for discharge. Her respiratory status improved tremendously throughout the hospital course. She also developed some thrombocytopenia and she was on heparin and there was some concern for HIT antibody, but came back to be negative. Her platelets improved prior to being discharged. The patient underwent a right heart catheterization on 09/21/2019, and according to the report, the patient had a normal cardiac index by thermal dilution. She was euvolemic based on the wedge pressure. Per Cardiology, they recommend if the patient continues to have any further decompensation, she will likely need to be transferred to [facility] for mechanical circulatory support, but at this time, the patient is doing well and there is no need for transfer. Cardiology recommends continue with dual anti-platelet therapy, cardioprotective medications, and continue wearing the LifeVest at all times. In the near future, she does need to have an ICD implanted for further management and care. Otherwise, the patient is doing well with no complaints. She did receive hemodialysis on the day of discharge. She was cleared for discharge by all consultants, Urology, Cardiology, Pulmonary, and Hematology. The patient will be transferred to [facility] for further management and care and evaluation. On the day of discharge, vital signs were stable, labs reviewed and stable. The patient is seen and evaluated, and examined thoroughly on the day of discharge. No other complaints. The patient verbalized understanding and agrees with plan of care with followup appointment as an outpatient with the primary care physician in 1 week and respiratory consult described above in 2 weeks' time. MEDICATIONS: See med reconciliation form. DISPOSITION: [facility]. CONDITION: Stable. DIET: Heart healthy. In the event of any worsening symptoms, the patient was advised to come back to the ED for further evaluation. Discharge summary took greater than 35 minutes. MD SUKHJINDER Luna/MODBriseyda /[id number]
--- NOTE | 2019-09-30 00:54 | Operative Report ---
DATE OF PROCEDURE: 09/21/2019 SURGEON: Jordan Tejeda DO PROCEDURES PERFORMED: 1. Right heart catheterization with cardiac output measurements. 2. Conscious sedation, 26 minutes. PREPROCEDURE DIAGNOSIS: Heart failure. POSTPROCEDURE DIAGNOSIS: Heart failure. ESTIMATED BLOOD LOSS: Less than 20 mL. SPECIMENS REMOVED: None. PROCEDURE IN DETAIL: After informed consent was obtained, the patient was brought to the cardiac catheterization laboratory in a fasting and nonsedated state. Bilateral groins were prepped and draped in the usual sterile fashion. A 2% lidocaine was infiltrated over the right anterior groin for local anesthesia. Using micropuncture needle, the right femoral vein was accessed via modified Seldinger technique and a 7-[place] sheath was placed. Next, hemodynamic parameters and right heart catheterization including Adry and thermodilution cardiac output measurements were performed. The patient tolerated the procedure well with no immediate complications and hemostasis was achieved via manual pressure. PROCEDURAL FINDINGS: 1. Mean right atrial pressure is 2 mmHg. 2. Right ventricular systolic pressure is 24 mmHg with an end-diastolic pressure 4 mmHg. 3. Pulmonary arterial systolic pressure is 27, pulmonary arterial diastolic pressure is 7, mean pulmonary arterial pressure is 13 mmHg. 4. Mean pulmonary catheter wedge pressure is 11 mmHg. 5. Adry cardiac output is 2.8 with a Adry cardiac index of 1.7. 6. Thermodilution cardiac output is 3.9 with a thermodilution cardiac index is 2.36. IMPRESSION: Congestive heart failure with normal filling pressures. RECOMMENDATIONS: Continue current medical management. Jordan Tejeda DO BM/MODL /[id number]
== END 2019-09-22 17:13 | DRG 280 ==
LOC: ER 13:19 → ERHOLD 15:26 → IMCU 18:06 → MED/SURG2 09-07 15:18 → ICU 09-13 12:38 → MED/SURG 09-17 18:00
PROVIDERS: ADMIT Internal Medicine; ATTEND Internal Medicine
PROC: 02HV33Z Insertion of Infusion Device into Superior Vena Cava, Percutaneous Approach (ICD-10-PCS; principal; 2019-09-14)
PROC: 5A1D70Z Performance of Urinary Filtration, Intermittent, Less than 6 Hours Per Day (ICD-10-PCS; 2019-09-14)
PROC: 5A1D70Z Performance of Urinary Filtration, Intermittent, Less than 6 Hours Per Day (ICD-10-PCS; 2019-09-15)
PROC: 5A1D70Z Performance of Urinary Filtration, Intermittent, Less than 6 Hours Per Day (ICD-10-PCS; 2019-09-16)
PROC: 5A1D70Z Performance of Urinary Filtration, Intermittent, Less than 6 Hours Per Day (ICD-10-PCS; 2019-09-20)
PROC: 5A1D70Z Performance of Urinary Filtration, Intermittent, Less than 6 Hours Per Day (ICD-10-PCS; 2019-09-21)
PROC: 5A1D70Z Performance of Urinary Filtration, Intermittent, Less than 6 Hours Per Day (ICD-10-PCS; 2019-09-22)
DX: I13.2 Hypertensive heart and chronic kidney disease with heart failure and with stage 5 chronic kidney disease, or end stage renal disease (principal); I50.23 Acute on chronic systolic (congestive) heart failure; I21.4 Non-ST elevation (NSTEMI) myocardial infarction; J18.9 Pneumonia, unspecified organism; N17.0 Acute kidney failure with tubular necrosis; J96.01 Acute respiratory failure with hypoxia; N18.6 End stage renal disease; D65 Disseminated intravascular coagulation [defibrination syndrome]; E78.5 Hyperlipidemia, unspecified; Z91.19 Patient's noncompliance with other medical treatment and regimen; I25.10 Atherosclerotic heart disease of native coronary artery without angina pectoris; Z95.5 Presence of coronary angioplasty implant and graft; D69.6 Thrombocytopenia, unspecified; Y95 Nosocomial condition; I25.5 Ischemic cardiomyopathy; Z99.2 Dependence on renal dialysis; Z66 Do not resuscitate; T50.1X5A Adverse effect of loop [high-ceiling] diuretics, initial encounter; F41.9 Anxiety disorder, unspecified; Z99.81 Dependence on supplemental oxygen; N31.9 Neuromuscular dysfunction of bladder, unspecified
CPT/HCPCS: 36415; 36580; 71045; 71046; 74470; 76770; 76937; 80048; 80053; 81001; 82150; 82550; 82553; 82607; 82728; 82948; 83010; 83540; 83690; 83735; 83880; 84100; 84295; 84466; 84484; 85025; 85045; 85379; 85610; 85651; 85730; 86022; 86705; 86706; 87040; 87086; 87340; 90962; 93005; 93451; 94640; 94660; 96365; 96372; 96374; 97139; 99152; 99284; J0456; J1644; J1650; J1756; J1815; J1940; J2001; J2250; J2405; J2543; J2550; J2765; J3010; J3475; J3480; J7030; J7050